=== PATIENT | male | born 1980 ===

== ENCOUNTER 2017-01-08 18:39 | Inpatient (IN) | payer OTHER, SELFPAY ==
[2017-01-08] MEDS ORDERED: Sodium Chloride 0.9% 1,000 ML IV STA ×2 (19:27→21:05)
[2017-01-08 19:48] LABS: VENOUS BLOOD GAS BASE EXCESS -0.8 mmol/L (0.0-2.0); VENOUS BLOOD GAS PCO2 34 mmHg (40-60); VENOUS BLOOD PH 7.44 (7.32-7.43)
--- NOTE | 2017-01-08 19:52 | ED PDOC ---
HPI: Altered Mental Status Time Seen by Provider: 01/08/17 19:19 Chief Complaint (Nursing): Alcohol Ingestion Chief Complaint (Provider): Altered Mental Status History Per: EMS History/Exam Limitations: Clinical Condition Onset/Duration Of Symptoms: Unknown Usual Baseline: Unknown Use Of Anticoag/Antiplatlets: Unknown Additional Complaint(s): Torrey Currie is brought into the ED by EMS. Patient history is limited due to clinical condition. As per EMS, the patient was found laying on the ground covered in his own feces. Patient only moans in response to questions. Past Medical History Reviewed: Historical Data, Nursing Documentation, Vital Signs, Unable To Obtain Vital Signs: Last Vital Signs Temp 99.4 F 01/08/17 19:21 Pulse 138 H 01/08/17 19:21 Resp 18 01/08/17 19:21 BP 142/73 01/08/17 19:21 Pulse Ox 100 01/08/17 19:21 - Medical History Other PMH: Unable to obtain - Surgical History Other surgeries: Unable to obtain - Family History Family History: States: Unknown Family Hx - Home Medications Home Medications: Ambulatory Orders Medication Instructions Recorded Unobtainable 01/08/17 - Allergies Allergies/Adverse Reactions: Allergies Allergy/AdvReac Type Severity Reaction Status Date / Time No Known Allergies Allergy Verified 01/08/17 18:46 Review of Systems Review Of Systems: ROS cannot be obtained secondary to pt's inabilty to answer questions. (cannot be obtained due to patients clinical condition.) Physical Exam - Reviewed Nursing Documentation Reviewed: Yes Vital Signs Reviewed: Yes - Physical Exam Appears: Positive for: In Acute Distress (appear cirrhotic and sick) Head Exam: Positive for: NORMOCEPHALIC (with temporal wasting and bilateral periorbital ecchymosis RIGHT > LEFT) Skin: Positive for: Warm, Dry (excoriated areas lower lumbar area, bilateral buttocks, and hip pointers with large area RIGHT hip pointer, with surrounding erythema), Jaundice Eye Exam: Positive for: EOMI, PERRL (roving eye movements), Scleral icterus ENT: Positive for: Pharynx Is (clear), Other (dry mucus membranes) Neck: Positive for: Painless ROM, Trachea Midline Cardiovascular/Chest: Positive for: Tachycardia (regular rhythm). Negative for : Edema, Murmur Respiratory: Positive for: Normal Breath Sounds. Negative for: Wheezing, Respiratory Distress Gastrointestinal/Abdominal: Positive for: Distended (marked), Asicites. Negative for: Tenderness Back: Positive for: Vertebral Tenderness (lumbar area, in area of excoriatiion as describe above) Extremity: Positive for: Normal ROM, Other (poor muscle bulk) Lymphatic: Negative for: Adenopathy Neurologic/Psych: Positive for: Other (only moans to questions). Negative for: Alert (Eyes open but obtunded), Oriented - Laboratory Results Result Diagrams: 01/12/17 04:20 01/12/17 04:20 - ECG O2 Sat by Pulse Oximetry: 100 (RA) Pulse Ox Interpretation: Normal - Progress Re-evaluation Time: 21:00 Condition: Unchanged - Critical Care Total Time (In Min): 30 Documented Critical Care: Time excludes all time spent performint seperately billable procedures Medical Decision Making Medical Decision Makin Initial Impression: 32 y/o male presenting altered mental status and liver cirrhosis Differential: traumatic brain injury, Alcohol intoxication, Hepatic encephalopathy, Dehydration, Electrolyte Initial Plan: * Type and Screen * VBG * CT ABD&Pelvis w/o contrast * CT cervical spine w/o contrast * CT head w/o contrast * EKG * Alcohol Serum * Ammonia * CMP * Drug Screen * Lipase * Magnesium * Phosphorous * Troponin I * CBC * Partial Thromboplastin * Prothrombin time * CXR NS 1000ml IV 1000mls/hr * Blood Culture * Urine Cuture * Accucheck Hernandez * Urinalysis * Reevaluation 1938 EKG performed: * Sinus tachycardia, very poor baseline due to patient movement * Other intervals unable to asses 2134 CT Head Without Intravenous Contrast COMPARISON: No relevant prior studies available. FINDINGS: Motion artifact. Brain: No hemorrhage. No significant white matter disease. No edema. Ventricles: No hydrocephalus. Bones/joints: Skull is intact. Soft tissues: Unremarkable as visualized. Sinuses: Mild paranasal sinus disease, right greater than left. Mastoid air cells: No mastoid effusion. IMPRESSION: No CT evidence of acute intracranial abnormality. Please see details/findings as above. 2136 CT Cervical Spine Without Intravenous Contrast COMPARISON: No relevant prior studies available. FINDINGS: Vertebrae: No acute fracture. Discs/spinal canal/neural foramina: No acute findings. No severe spinal canal stenosis. Soft tissues: No acute findings. Lung apices: Unremarkable as visualized. IMPRESSION: Negative for acute fracture. 2141 CT Abdomen and Pelvis Without Intravenous Contrast FINDINGS: Please note evaluation for underlying visceral lesions/abnormalities limited without intravenous contrast. Undulating contour to the liver. Splenomegaly. The unenhanced pancreas and adrenal glands demonstrate no acute abnormalities. Limited evaluation of the gallbladder. Further evaluation can be performed with dedicated ultrasound. No obstructing renal calculus or hydronephrosis. Hernandez catheter in the bladder. Bladder is collapsed, limiting its evaluation. Bladder wall appears prominent. Correlate clinically. The aorta is normal in caliber. Evaluation of bowel limited without enteric contrast. Hiatal hernia/thickening of distal esophageal wall. No bowel obstruction. Bowel wall thickening, correlate clinically if there is concern for enteritis, appearance may be somewhat due to ascites. IMPRESSION: Severe ascites. Undulating contour to the liver. Splenomegaly. Evaluation of bowel limited without enteric contrast. Hiatal hernia/thickening of distal esophageal wall. Bowel wall thickening, correlate clinically if there is concern for enteritis, appearance may be somewhat due to ascites. Hernandez catheter in the bladder. Bladder is collapsed, limiting its evaluation. Bladder wall appears prominent. Correlate clinically. 215 Marked derangement of electrolytes and liver function tests including very elevated bilirubin and coagulopathy, elevated CPK and kidney insufficiency. Ammonia levels minimally elevated, but at times level of ammonia does not correlate with severity of hepatic encephalopathy. In addition, pt may also be or have had prolonged period of delerium tremens (if an alcoholic) which may be causing altered mental status. Pt needs critical care for multiorgan life- threatening dysfunction. Banana bag ordered for volume and electrolyte. Pt's mental status unchanged at 2100 and [address] Dillard hospitalist for admission. Scribe Attestation Documented by Coco Del Rio acting as a scribe for Nicole Albright MD. Provider Attestation All medical record entries made by the Scribe were at my direction and personally dictated by me. I have reviewed the chart and agree that the record accurately reflects my personal performance of the history, physical exam, medical decision making, and the department course for this patient. I have also personally directed, reviewed, and agree with the discharge instructions and disposition. Disposition - Clinical Impression Clinical Impression: ROHIT (acute kidney injury), Liver cirrhosis, Coagulopathy, Metabolic encephalopathy, Rhabdomyolysis - Disposition Disposition Time: 21:51 Condition: CRITICAL - Pt Status Changed To: Hospital Disposition Of: Inpatient - Admit Certification Admit to Inpatient:: After my assessment, the patient will require hospitalization for at least two midnights. This is because of the severity of symptoms shown, intensity of services needed, and/or the medical risk in this patient being treated as an outpatient. - POA Present On Arrival: Falls Or Trauma, Pressure Ulcer (buttocks)
[2017-01-08 19:57] LABS: ALB/GLOB RATIO 0.4 (1.0-2.1); ALCOHOL SERUM < 10 mg/dl (0-10); ALKALINE PHOSPHATASE 226 U/L (38-126); ALT/SGPT 46 U/L (21-72); AST/SGOT 253 U/L (17-59); BLOOD UREA NITROGEN 48 mg/dl (9-20); CALCIUM 8.3 mg/dL (8.4-10.2); CARBON DIOXIDE 19 mmol/L (22-30); CHLORIDE 109 mmol/L (98-107); GFR AFRICAN-AMERICAN 56; GLUCOSE,RANDOM 133 mg/dL (75-110); LIPASE 529 U/L (23-300); MAGNESIUM 1.4 MG/DL (1.6-2.3); PHOSPHOROUS 1.5 mg/dl (2.5-4.5); POTASSIUM 3.5 MMOL/L (3.6-5.0); SODIUM 143 mmol/l (132-148); TOTAL PROTEIN 9.3 G/DL (6.3-8.2)
[2017-01-08 20:02] LABS: BASO # 0.2 K/uL (0.0-0.2); BASO % 1.4 % (0.0-2.0); EOS % 0.2 % (0.0-4.0); HEMATOCRIT 25.5 % (35.0-51.0); LYMPH # 7.4 K/uL (1.0-4.3); LYMPH % 64.6 % (20.0-40.0); MEAN CELL VOLUME 89.5 fl (80.0-94.0); MEAN CORPUSCULAR HEMOGLOBIN 29.7 pg (27.0-31.0); MEAN CORPUSCULAR HGB CONC 33.2 g/dL (33.0-37.0); MEAN PLATELET VOLUME 8.2 fl (7.2-11.7); MONO # 0.5 K/uL (0.0-0.8); MONO % 4.5 % (0.0-10.0); NEUT # 3.4 K/uL (1.8-7.0); NEUT % 29.3 % (50.0-75.0); NRBC % 0.3 % (0.0-0.0); RED CELL DISTRIBUTION WIDTH 21.2 % (11.5-14.5); WHITE BLOOD COUNT 11.5 K/uL (4.8-10.8)
[2017-01-08 20:15] LABS: PARTIAL THROMBOPLASTIN TIME 44.2 Seconds (25.6-37.1)
[2017-01-08] MEDS ORDERED: Multivitamin (MVI) 10 ML, Thiamine 100 MG, Folic Acid 1 MG in Sodium Chloride 0.9% 1,00... IV ONE (20:16)
--- NOTE | 2017-01-08 21:36 | CT ---
EXAM: CT Head Without Intravenous Contrast CLINICAL HISTORY: 32 years old, male; Injury or trauma; Injury Etoch; Initial encounter; Concussion / head injury; Additional info: AMS TECHNIQUE: Axial computed tomography images of the head/brain without intravenous contrast. All CT scans at this facility use one or more dose reduction techniques, viz.: automated exposure control; ma/kV adjustment per patient size (including targeted exams where dose is matched to indication; i.e. head); or iterative reconstruction technique. Coronal and sagittal reformatted images were created and reviewed. COMPARISON: No relevant prior studies available. FINDINGS: Motion artifact. Brain: No hemorrhage. No significant white matter disease. No edema. Ventricles: No hydrocephalus. Bones/joints: Skull is intact. Soft tissues: Unremarkable as visualized. Sinuses: Mild paranasal sinus disease, right greater than left. Mastoid air cells: No mastoid effusion. IMPRESSION: No CT evidence of acute intracranial abnormality. Please see details/findings as above.
--- NOTE | 2017-01-08 21:37 | CT ---
EXAM: CT Cervical Spine Without Intravenous Contrast CLINICAL HISTORY: 32 years old, male; Injury or trauma; Injury Etoch; Initial encounter; Concussion /head injury; Additional info: Head trauma TECHNIQUE: Axial computed tomography images of the cervical spine without intravenous contrast. All CT scans at this facility use one or more dose reduction techniques, viz.: automated exposure control; ma/kV adjustment per patient size (including targeted exams where dose is matched to indication; i.e. head); or iterative reconstruction technique. Coronal and sagittal reformatted images were created and reviewed. COMPARISON: No relevant prior studies available. FINDINGS: Vertebrae: No acute fracture. Discs/spinal canal/neural foramina: No acute findings. No severe spinal canal stenosis. Soft tissues: No acute findings. Lung apices: Unremarkable as visualized. IMPRESSION: Negative for acute fracture.
--- NOTE | 2017-01-08 21:42 | CT ---
EXAM: CT Abdomen and Pelvis Without Intravenous Contrast CLINICAL HISTORY: 32 years old, male; Pain; Abdominal pain; Generalized; Additional info: Abd distension TECHNIQUE: Axial computed tomography images of the abdomen and pelvis without intravenous contrast. All CT scans at this facility use one or more dose reduction techniques, viz.: automated exposure control; ma/kV adjustment per patient size (including targeted exams where dose is matched to indication; i.e. head); or iterative reconstruction technique. Coronal and sagittal reformatted images were created and reviewed. COMPARISON: No relevant prior studies available. FINDINGS: Please note evaluation for underlying visceral lesions/abnormalities limited without intravenous contrast. Undulating contour to the liver. Splenomegaly. The unenhanced pancreas and adrenal glands demonstrate no acute abnormalities. Limited evaluation of the gallbladder. Further evaluation can be performed with dedicated ultrasound. No obstructing renal calculus or hydronephrosis. Hernandez catheter in the bladder. Bladder is collapsed, limiting its evaluation. Bladder wall appears prominent. Correlate clinically. The aorta is normal in caliber. Evaluation of bowel limited without enteric contrast. Hiatal hernia/thickening of distal esophageal wall. No bowel obstruction. Bowel wall thickening, correlate clinically if there is concern for enteritis, appearance may be somewhat due to ascites. Severe ascites. IMPRESSION: Severe ascites. Undulating contour to the liver. Splenomegaly. Evaluation of bowel limited without enteric contrast. Hiatal hernia/thickening of distal esophageal wall. Bowel wall thickening, correlate clinically if there is concern for enteritis, appearance may be somewhat due to ascites. Hernandez catheter in the bladder. Bladder is collapsed, limiting its evaluation. Bladder wall appears prominent. Correlate clinically.
[2017-01-08 21:48] LABS: URINE BILIRUBIN LARGE (NEGATIVE); URINE COLOR RED (YELLOW); URINE GLUCOSE (UA) 100 mg/dL (Normal); URINE KETONE 15 mg/dL (NEGATIVE)
[2017-01-08 21:49] LABS: PH,URINE 6.5 (5.0-8.0); RBC URINE 877 /hpf (0-3); URINE BLOOD LARGE (NEGATIVE); URINE LEUKOCYTE ESTERASE TRACE Leu/uL (Negative); URINE PROTEIN >=300 mg/dL (NEGATIVE); WBC URINE 89 /hpf (0-5)
[2017-01-08 21:50] LABS: URINE BACTERIA MOD (<OCC)
[2017-01-08] MEDS: Dextrose 5%/0.9% NS 1,000 ML IV SCH (22:30)
--- NOTE | 2017-01-09 03:20 | CP.PCM.HP ---
History of Present Illness - History of Present Illness History of Present Illness: 32 yr old male with unknown past medical hx except for alcoholism who was brought to ED after having been found lying on ground littered in his own feces for unknown period of time. In ED he was noted to lethargic, moaning and groaning with skin tears on back and sides of hips. Work up included CT head and spine which were neg for any acute pathology. Further work up revealed elevated ammonia level (72), and bilirubin (10), BAL<10 and CPK 1082. He himself was unable to provide any medical information and was admitted for further management after the intial interventions in ED under hospitalist care to ICU Present on Admission - Present on Admission Any Indicators Present on Admission: No History of DVT/PE: No History of Uncontrolled Diabetes: No Urinary Catheter: Yes Decubitus Ulcer Present: Yes Decubitus Ulcer Location: Loer back, buttocks and sides of hips Decubitus Ulcer Stage: II History Surgical Site Infection Following: None - Notes: Notes:: Pt has maccerated erythmatous skin with multiple tears on back and hip sides which could be of time in his own feces and urin secondary to lying in the same posture for long period. Hx of prior surgeries, DVT or DM unavailable Review of Systems - Review of Systems Review of Systems: ROS could not be done as pt lethargic and unable to provide any significant information Past Patient History - Tetanus Immunizations Tetanus Immunization: Unknown - Past Medical History & Family History Past Medical History?: No Pertinent Family History: Pt himself unable to provide any medical information because of current medical status - Past Social History Smoking Status: Unknown If Ever Smoked - PSYCHIATRIC Hx Substance Use: No Meds Allergies/Adverse Reactions: Allergies Allergy/AdvReac Type Severity Reaction Status Date / Time No Known Allergies Allergy Verified 01/08/17 18:46 Physical Exam - Constitutional Appears: Confused, Cachectic, Chronically Ill - Head Exam Head Exam: NORMAL INSPECTION, NORMOCEPHALIC - Eye Exam Eye Exam: Normal appearance, PERRL Pupil Exam: PERRL - ENT Exam ENT Exam: Mucous Membranes Dry, Normal Oropharynx - Neck Exam Neck exam: Positive for: Normal Inspection - Respiratory Exam Respiratory Exam: Clear to Auscultation Bilateral, NORMAL BREATHING PATTERN - Cardiovascular Exam Cardiovascular Exam: REGULAR RHYTHM, +S1, +S2 - GI/Abdominal Exam GI & Abdominal Exam: Distended, Normal Bowel Sounds, Soft - Exam Exam: NORMAL INSPECTION External exam: Erythema - Extremities Exam Extremities exam: Positive for: full ROM, normal capillary refill, normal inspection, pedal pulses present - Expanded Upper Extremities Exam Left General: normal inspection Shoulder exam: normal inspection Upper Arm exam: normal inspection Elbow exam: normal inspection Forearm Wrist exam: normal inspection - Back Exam Additional comments: Skin on lower back and hip sides erythmatous, maccerated and and has multiple skin tears - Neurological Exam Additional comments: Moving all four extremeties but lethargic/obtunded and neurological exam not possible at present - Psychiatric Exam Additional comments: Pt lethargic/obtunded and psychiatric exam not possible at present - Skin Additional comments: Erythmatous skin on lower back,, buttocks and sides of hips with mutilple skin tears Results - Vital Signs Recent Vital Signs: Last Vital Signs Temp 99.0 F 01/08/17 22:55 Pulse 127 H 01/08/17 23:03 Resp 16 01/08/17 23:03 BP 150/93 H 01/08/17 23:03 Pulse Ox 97 01/08/17 23:03 - Labs Result Diagrams: 01/08/17 19:43 01/08/17 19:43 Labs: Laboratory Results - last 24 hr 01/08/17 01/08/17 01/08/17 19:27 19:35 19:41 WBC RBC Hgb Hct MCV MCH MCHC RDW Plt Count MPV Neut % (Auto) Lymph % (Auto) Jack % (Auto) Eos % (Auto) Baso % (Auto) Neut # Lymph # Jack # Eos # Baso # PT INR APTT pO2 30 VBG pH 7.44 H VBG pCO2 34 L VBG HCO3 23.6 VBG Total CO2 24.1 VBG O2 Sat (Calc) 62.6 VBG Base Excess -0.8 L VBG Potassium 3.7 Sodium 142.0 Chloride 107.0 Glucose 133 H Lactate 2.1 FiO2 21.0 Potassium Carbon Dioxide Anion Gap BUN Creatinine Est GFR ( Amer) Est GFR (Non-Af Amer) Random Glucose Calcium Phosphorus Magnesium Total Bilirubin Direct Bilirubin 7.5 H AST ALT Alkaline Phosphatase Ammonia 70 H Total Creatine Kinase 1082 H Troponin I Total Protein Albumin Globulin Albumin/Globulin Ratio Lipase Venous Blood Potassium 3.7 Urine Color Urine Clarity Urine pH Ur Specific [place] Urine Protein Urine Glucose (UA) Urine Ketones Urine Blood Urine Nitrate Urine Bilirubin Urine Urobilinogen Ur Leukocyte Esterase Urine RBC (Auto) Urine Microscopic WBC Ur Squamous Epith Cells Amorphous Sediment Urine Bacteria Urine Yeast (Budding) Urine Opiates Screen Urine Methadone Screen Ur Barbiturates Screen Ur Phencyclidine Scrn Ur Amphetamines Screen U Benzodiazepines Scrn U Oth Cocaine Metabols U Cannabinoids Screen Alcohol, Quantitative Blood Type BBK History Checked 01/08/17 01/08/17 01/08/17 19:43 19:43 19:43 WBC 11.5 H RBC 2.85 L Hgb 8.5 L Hct 25.5 L MCV 89.5 MCH 29.7 MCHC 33.2 RDW 21.2 H Plt Count 69 L MPV 8.2 Neut % (Auto) 29.3 L Lymph % (Auto) 64.6 H Jack % (Auto) 4.5 Eos % (Auto) 0.2 Baso % (Auto) 1.4 Neut # 3.4 Lymph # 7.4 H Jack # 0.5 Eos # 0.0 Baso # 0.2 PT 23.6 H INR 2.1 H APTT 44.2 H pO2 VBG pH VBG pCO2 VBG HCO3 VBG Total CO2 VBG O2 Sat (Calc) VBG Base Excess VBG Potassium Sodium 143 Chloride 109 H Glucose Lactate FiO2 Potassium 3.5 L Carbon Dioxide 19 L Anion Gap 19 BUN 48 H Creatinine 1.7 H Est GFR ( Amer) 56 Est GFR (Non-Af Amer) 46 Random Glucose 133 H Calcium 8.3 L Phosphorus 1.5 L Magnesium 1.4 L Total Bilirubin 10.0 H Direct Bilirubin AST 253 H ALT 46 Alkaline Phosphatase 226 H Ammonia Total Creatine Kinase Troponin I 0.0320 Total Protein 9.3 H Albumin 2.8 L Globulin 6.5 H Albumin/Globulin Ratio 0.4 L Lipase 529 H Venous Blood Potassium Urine Color Urine Clarity Urine pH Ur Specific [place] Urine Protein Urine Glucose (UA) Urine Ketones Urine Blood Urine Nitrate Urine Bilirubin Urine Urobilinogen Ur Leukocyte Esterase Urine RBC (Auto) Urine Microscopic WBC Ur Squamous Epith Cells Amorphous Sediment Urine Bacteria Urine Yeast (Budding) Urine Opiates Screen Urine Methadone Screen Ur Barbiturates Screen Ur Phencyclidine Scrn Ur Amphetamines Screen U Benzodiazepines Scrn U Oth Cocaine Metabols U Cannabinoids Screen Alcohol, Quantitative < 10 Blood Type BBK History Checked 01/08/17 01/08/17 01/08/17 19:43 20:45 20:58 WBC RBC Hgb Hct MCV MCH MCHC RDW Plt Count MPV Neut % (Auto) Lymph % (Auto) Jack % (Auto) Eos % (Auto) Baso % (Auto) Neut # Lymph # Jack # Eos # Baso # PT INR APTT pO2 VBG pH VBG pCO2 VBG HCO3 VBG Total CO2 VBG O2 Sat (Calc) VBG Base Excess VBG Potassium Sodium Chloride Glucose Lactate FiO2 Potassium Carbon Dioxide Anion Gap BUN Creatinine Est GFR ( Amer) Est GFR (Non-Af Amer) Random Glucose Calcium Phosphorus Magnesium Total Bilirubin Direct Bilirubin AST ALT Alkaline Phosphatase Ammonia Total Creatine Kinase Troponin I Total Protein Albumin Globulin Albumin/Globulin Ratio Lipase Venous Blood Potassium Urine Color Red Urine Clarity Turbid Urine pH 6.5 Ur Specific [place] 1.025 Urine Protein >=300 Urine Glucose (UA) 100 Urine Ketones 15 Urine Blood Large Urine Nitrate Positive H Urine Bilirubin Large Urine Urobilinogen 4.0 Ur Leukocyte Esterase Trace H Urine RBC (Auto) 877 H Urine Microscopic WBC 89 H Ur Squamous Epith Cells 5 Amorphous Sediment Moderate H Urine Bacteria Mod H Urine Yeast (Budding) Many H Urine Opiates Screen Negative Urine Methadone Screen Negative Ur Barbiturates Screen Negative Ur Phencyclidine Scrn Negative Ur Amphetamines Screen Negative U Benzodiazepines Scrn Negative U Oth Cocaine Metabols Negative U Cannabinoids Screen Negative Alcohol, Quantitative Blood Type O POSITIVE BBK History Checked No verified bt - EKG Data EKG comments: NSR with no ac ST T changes - Impressions Impression: CT scan head and Neck neg for any ac pathology as per ER MD. CT abdomen showed spleenomegaly Assessment & Plan - Assessment and Plan (Free Text) Assessment: 32 yr old male with unknown past medical hx except for alcoholism who was brought to ED after having been found lying on ground littered in his own feces for unknown period of time, noted to lethargic, moaning and groaning with skin tears on back and sides of hips. Work up included CT head and spine which were neg for any acute pathology. Further work up revealed elevated ammonia level (72 ), and bilirubin (10), BAL<10 and CPK 1082. He was admitted for further management after the intial interventions in ED under hospitalist care to ICU. The admitting impressions include: Hepatic encephalopathy Jaundice. Thrombocytopenia Cellulitis of lower back, buttocks and hips. UTI Ch alcoholism ? Alcohol withdrawl synd. Homeless Plan: 1. Admit to ICU for close hemodynamic monitoring and necessary interventions. 2. Fall and Seizure precautions. 3. Neuro checks for next 24 hours for any change in ctatus. 4. Initiate perentral IV fluid for hydration and nutrition purpose. 5. Prevention of Ac alcohol withdrwl syndromes with short acting sedatives on prn basis. 6. Intiate broad spectrum antibiotics for Cellulitis of lower back and UTI. Whe shall start with Zosyn and follow C&S and input fron ID/Fruit [employer]. 7. Prevention of syndromes sec to Ch alcoholism with iv thiamine and folic acid. 8. Prevention stress ulcers and DVT prophylaxis with PPI, SCD boots. We shall hold anticoagulant med therapy as pt is thrombocytopenic. 9. Symptomatic treatment of nausea, vomiting, fever, pain and other bodily symptoms with short acting meds on prn basis. Pt during the hospital stay shall be followed by hospitalist service/inteve care service and post dischrge sent back to his PMD/medical clinic affiliated with hospital for further follow up. - Date & Time Date: 01/08/17
[2017-01-09] MEDS ORDERED: Lactulose 10 gm/15 ml (Rectal Use) PR ONE (03:35)
[2017-01-09] MEDS ORDERED: Influenza Vaccine 18yr & older 0.5 ML/45 MCG SYR IM ONE (06:00)
[2017-01-09] MEDS ORDERED: Pneumococcal 23-Valent Vaccine IM ONE (06:00)
[2017-01-09 06:18] LABS: HEMATOCRIT 23.4 % (35.0-51.0); MEAN CORPUSCULAR HEMOGLOBIN 30.1 pg (27.0-31.0); MEAN CORPUSCULAR HGB CONC 33.1 g/dL (33.0-37.0); RED CELL DISTRIBUTION WIDTH 21.4 % (11.5-14.5); WHITE BLOOD COUNT 9.6 K/uL (4.8-10.8)
[2017-01-09 06:32] LABS: ALB/GLOB RATIO 0.4 (1.0-2.1); ALKALINE PHOSPHATASE 186 U/L (38-126); ALT/SGPT 45 U/L (21-72); AST/SGOT 199 U/L (17-59); BILIRUBIN,TOTAL 9.1 mg/dl (0.2-1.3); BLOOD UREA NITROGEN 44 mg/dl (9-20); CALCIUM 7.6 mg/dL (8.4-10.2); CARBON DIOXIDE 21 mmol/L (22-30); CHLORIDE 116 mmol/L (98-107); GFR AFRICAN-AMERICAN > 60; GLUCOSE,RANDOM 105 mg/dL (75-110); POTASSIUM 2.7 MMOL/L (3.6-5.0); SODIUM 148 mmol/l (132-148); TOTAL PROTEIN 8.2 G/DL (6.3-8.2)
[2017-01-09 06:40] LABS: PARTIAL THROMBOPLASTIN TIME 46.5 Seconds (25.6-37.1)
[2017-01-09] MEDS: Dextrose 5%/0.9% NS 1,000 ML IV SCH ×2 (06:41→18:20)
--- NOTE | 2017-01-09 07:19 | RAD ---
HISTORY: ams COMPARISON: No prior. FINDINGS: LUNGS: No active pulmonary disease. PLEURA: No significant pleural effusion identified, no pneumothorax apparent. CARDIOVASCULAR: Normal. OSSEOUS STRUCTURES: No significant abnormalities. VISUALIZED UPPER ABDOMEN: Normal. OTHER FINDINGS: None. IMPRESSION: No active disease.
[2017-01-09 07:52] LABS: MAGNESIUM 1.3 MG/DL (1.6-2.3); PHOSPHOROUS 1.8 mg/dl (2.5-4.5)
[2017-01-09] MEDS: Potassium CL 10 MEQ/50 ML 50 ML IVPB SCH ×4 (08:26→11:28)
--- NOTE | 2017-01-09 09:11 | CARD ---
APPROVED REPORT EKG Measurement Heart [id number] <Conclusion> Sinus tachycardia Too much artefact
--- NOTE | 2017-01-09 13:39 | CP.CCUPN ---
CCU Subjective - Physician Review Subjective (Free Text): ICU admission and consultation: discussed with Night Hospitalist MD: 32M homeless Torrey Currie, admitted after being found unresponsiveness, lying on the ground in his own excrement, and brought into ER for eval. Found to have negative CT Brain, and multiple blood work abnormalities; including azotemia, anemia, low platelets, negative ETOH level, metabolic acidosis, and physical exam c/w ascites and cirrhosis. In ICU, now arousable to verbal stimuli, but not wholly interactive nor follows any commands, will answer simple questions with brief one word answers, but not conversant otherwise. No other PMH obtainable, he is otherwise an extremely poor historian. Other vitals and I/O's reviewed. Allergies: NKDA ROS: Unobtainable. No other pertinent negs or positives on 10+ system review. Outpt Meds: None known. PMSFH: ----All Nursing and physician documentation reviewed to date; no new pertinent info noted relevant to current medical problems. CXR: clear lung lopes, no cardiomegaly (my interp). Brain CT, CT AP, C-Spine CT films and results reviewed: except for ascites, + splenomegaly, no other findings to warrant further w/u. MAJOR PROBLEMS: 1. AMS 2 metabolic encephalopathy, r/o 2 subacute Head trauma 2. Possible AKA ( possible recent binge ETOH drinking ) 3. Multiple Electrolyte Abnormalities: Hypokalemia, Hypomagnesemia, Hypophosphatemia 4. Azotemia / Dehydration, r/o ROHIT 2 Rhabdomyolysis 5. Acute on Chronic Disease Anemia 6. Coagulopathy / Thrombocytopenia 7. r/o SBP PLAN: 1. Neurochecks, seizure precautions, HOB elevation. Watch for ETOH Withdrawal symptoms. May need 1:1 supervision now as he is trying to get OOB. 2. IVF hydration with D5NS. Ensure Thiamine / Folate supplementation. 3. K, Mg, Phos already ordered or repletion. 4. Follow LFTs. 5. Lactulose. 6. Check serum ketones. 7. Paracentesis 8. Consider Abdominal US. 9. Airway reflexes currently intact, no need for airway protection or assisted breathing. CCU Objective - Vital Signs / Intake & Output Vital Signs (Last 4 hours): Vital Signs Temp Pulse Resp BP Pulse Ox 01/09/17 11:57 98.6 F 126 H 21 153/94 H 100 01/09/17 10:00 120 H 24 142/93 H 99 Intake and Output (Last 8hrs): Intake & Output 01/08/17 01/09/17 01/09/17 22:59 06:59 14:59 Intake Total 1100 1425 Output Total 200 300 Balance 900 1125 Weight 130 lb Intake: IV 1000 625 Intake, Piggyback 100 350 Oral 450 Output: Urine 200 300 Urethral (Hernandez) 200 300 Other: # Bowel Movements 2 1 - Physical Exam Physical Exam Limitations: Positive for: Altered Mental Status Head: Positive for: Abrasion, Other (temporal mm atrophy, bilateral orbital ecchymosis R worse than L.) Pupils: Positive for: PERRL Extroacular Muscles: Positive for: EOMI Conjunctiva: Positive for: Icteric Nose (External): Positive for: Atraumatic Nose (Internal): Positive for: No Active Bleeding Neck: Positive for: Normal Range of Motion. Negative for: Meningeal Signs, JVD Respiratory/Chest: Positive for: Clear to Auscultation Cardiovascular: Positive for: Regular Rate and Rhythm, Normal S1, S2, Tachycardic. Negative for: Murmurs, Rub Abdomen: Positive for: Distention, Normal Bowel Sounds. Negative for: Tenderness, Peritoneal Signs, Rebound, Guarding Lower Extremity: Positive for: Edema, NORMAL PULSES. Negative for: CALF TENDERNESS, Cyanosis, Tenderness Neurological: Positive for: GCS=15 Skin: Positive for: Warm, Laceration, Other (macerated and erythematous skin changes over both hips and mid sacral area.). Negative for: Rashes Lymphatic: Negative for: Cervical Adenopathy, Inguinal Adenopathy Psychiatric: Positive for: Lethargic - Medications Active Medications: Active Medications Generic Name Dose Route Start Last Admin Trade Name Freq PRN Reason Stop Dose Admin Piperacillin Sod/Tazobactam 100 mls @ 100 mls/hr 01/09/17 04:00 01/09/17 09: 24 Sod 2.25 gm/ Sodium Chloride IVPB 100 mls/hr Q6 MEG Administration Protocol Dextrose/Sodium Chloride 1,000 mls @ 125 mls/hr 01/08/17 22:30 01/09/17 06:41 Dextrose 5%/0.9% Ns 1000 Ml IV 01/09/17 22:22 125 mls/hr .Q8H MEG Administration Lorazepam 1 mg 01/08/17 22:18 01/08/17 22:41 Ativan IVP 01/10/17 00:01 1 mg Q2 PRN Administration Agitation Pantoprazole Sodium 40 mg 01/09/17 09:00 01/09/17 08:23 Protonix Inj IVP 40 mg DAILY MEG Administration Potassium Phos/Sodium Phos 1 pkt 01/09/17 13:00 Neutra-Phos PO QID MEG - Patient Studies Lab Studies: Lab Studies 01/09/17 01/09/17 01/09/17 Range/Units 12:25 07:00 05:30 WBC (4.8-10.8) K/uL RBC (4.40-5.90) Mil/uL Hgb (12.0-18.0) g/dL Hct (35.0-51.0) % MCV (80.0-94.0) fl MCH (27.0-31.0) pg MCHC (33.0-37.0) g/dL RDW (11.5-14.5) % Plt Count (130-400) K/uL MPV (7.2-11.7) fl Neut % (Auto) (50.0-75.0) % Lymph % (Auto) (20.0-40.0) % [place] % (Auto) (0.0-10.0) % Eos % (Auto) (0.0-4.0) % Baso % (Auto) (0.0-2.0) % Neut # (1.8-7.0) K/uL Lymph # (1.0-4.3) K/uL [place] # (0.0-0.8) K/uL Eos # (0.0-0.7) K/uL Baso # (0.0-0.2) K/uL PT 24.8 H (9.8-13.1) Seconds INR 2.2 H (0.9-1.2) APTT 46.5 H (25.6-37.1) Seconds pO2 (30-55) mm/Hg VBG pH (7.32-7.43) VBG pCO2 (40-60) mmHg VBG HCO3 mmol/L VBG Total CO2 (22-28) mmol/L VBG O2 Sat (Calc) (40-65) % VBG Base Excess (0.0-2.0) mmol/L VBG Potassium (3.6-5.2) mmol/L Sodium (132-148) mmol/L Chloride (98-107) mmol/L Glucose (75-110) mg/dL Lactate (0.7-2.1) mmol/L FiO2 % Potassium (3.6-5.0) MMOL/L Carbon Dioxide (22-30) mmol/L Anion Gap (10-20) BUN (9-20) mg/dl Creatinine (0.8-1.5) mg/dL Est GFR ( Amer) Est GFR (Non-Af Amer) POC Glucose (mg/dL) (65-110) mg/dL Random Glucose (75-110) mg/dL Lactic Acid (0.7-2.1) MMOL/L Calcium (8.4-10.2) mg/dL Phosphorus 1.8 L (2.5-4.5) mg/dl Magnesium 1.3 L (1.6-2.3) MG/DL Total Bilirubin (0.2-1.3) mg/dl Direct Bilirubin (0.0-0.4) mg/ml AST (17-59) U/L ALT (21-72) U/L Alkaline Phosphatase (38-126) U/L Ammonia (16-60) umo/L Total Creatine Kinase (55-170) U/L Troponin I (0.00-0.120) ng/mL Total Protein (6.3-8.2) G/DL Albumin (3.5-5.0) g/dL Globulin (2.2-3.9) gm/dL Albumin/Globulin Ratio (1.0-2.1) Lipase (23-300) U/L Venous Blood Potassium (3.6-5.2) mmol/L Urine Color (YELLOW) Urine Clarity (Clear) Urine pH (5.0-8.0) Ur Specific [place] (1.003-1.030) Urine Protein (NEGATIVE) mg/dL Urine Glucose (UA) (Normal) mg/dL Urine Ketones (NEGATIVE) mg/dL Urine Blood (NEGATIVE) Urine Nitrate (NEGATIVE) Urine Bilirubin (NEGATIVE) Urine Urobilinogen (0.2-1.0) mg/dL Ur Leukocyte Esterase (Negative) Alex/uL Urine RBC (Auto) (0-3) /hpf Urine Microscopic WBC (0-5) /hpf Ur Squamous Epith Cells (0-5) /hpf Amorphous Sediment (<OCC) /ul Urine Bacteria (<OCC) Urine Yeast (Budding) (NEGATIVE) /hpf Urine Opiates Screen (NEGATIVE) Urine Methadone Screen (NEGATIVE) Ur Barbiturates Screen (NEGATIVE) Ur Phencyclidine Scrn (NEGATIVE) Ur Amphetamines Screen (NEGATIVE) U Benzodiazepines Scrn (NEGATIVE) U Oth Cocaine Metabols (NEGATIVE) U Cannabinoids Screen (NEGATIVE) Alcohol, Quantitative (0-10) mg/dl Blood Type Cancelled Antibody Screen Cancelled Crossmatch See Detail BBK History Checked Cancelled 01/09/17 01/09/17 01/09/17 Range/Units 05:30 05:30 05:30 WBC 9.6 (4.8-10.8) K/uL RBC 2.57 L (4.40-5.90) Mil/uL Hgb 7.7 L (12.0-18.0) g/dL Hct 23.4 L (35.0-51.0) % MCV 91.0 (80.0-94.0) fl MCH 30.1 (27.0-31.0) pg MCHC 33.1 (33.0-37.0) g/dL RDW 21.4 H (11.5-14.5) % Plt Count 57 L (130-400) K/uL MPV (7.2-11.7) fl Neut % (Auto) (50.0-75.0) % Lymph % (Auto) (20.0-40.0) % [place] % (Auto) (0.0-10.0) % Eos % (Auto) (0.0-4.0) % Baso % (Auto) (0.0-2.0) % Neut # (1.8-7.0) K/uL Lymph # (1.0-4.3) K/uL [place] # (0.0-0.8) K/uL Eos # (0.0-0.7) K/uL Baso # (0.0-0.2) K/uL PT (9.8-13.1) Seconds INR (0.9-1.2) APTT (25.6-37.1) Seconds pO2 (30-55) mm/Hg VBG pH (7.32-7.43) VBG pCO2 (40-60) mmHg VBG HCO3 mmol/L VBG Total CO2 (22-28) mmol/L VBG O2 Sat (Calc) (40-65) % VBG Base Excess (0.0-2.0) mmol/L VBG Potassium (3.6-5.2) mmol/L Sodium 148 (132-148) mmol/L Chloride 116 H (98-107) mmol/L Glucose (75-110) mg/dL Lactate (0.7-2.1) mmol/L FiO2 % Potassium 2.7 L (3.6-5.0) MMOL/L Carbon Dioxide 21 L (22-30) mmol/L Anion Gap 14 (10-20) BUN 44 H (9-20) mg/dl Creatinine 1.6 H (0.8-1.5) mg/dL Est GFR ( Amer) > 60 Est GFR (Non-Af Amer) 50 POC Glucose (mg/dL) (65-110) mg/dL Random Glucose 105 (75-110) mg/dL Lactic Acid 1.0 (0.7-2.1) MMOL/L Calcium 7.6 L (8.4-10.2) mg/dL Phosphorus (2.5-4.5) mg/dl Magnesium (1.6-2.3) MG/DL Total Bilirubin 9.1 H (0.2-1.3) mg/dl Direct Bilirubin (0.0-0.4) mg/ml AST 199 H D (17-59) U/L ALT 45 (21-72) U/L Alkaline Phosphatase 186 H (38-126) U/L Ammonia (16-60) umo/L Total Creatine Kinase 538 H (55-170) U/L Troponin I (0.00-0.120) ng/mL Total Protein 8.2 (6.3-8.2) G/DL Albumin 2.4 L (3.5-5.0) g/dL Globulin 5.8 H (2.2-3.9) gm/dL Albumin/Globulin Ratio 0.4 L (1.0-2.1) Lipase (23-300) U/L Venous Blood Potassium (3.6-5.2) mmol/L Urine Color (YELLOW) Urine Clarity (Clear) Urine pH (5.0-8.0) Ur Specific [place] (1.003-1.030) Urine Protein (NEGATIVE) mg/dL Urine Glucose (UA) (Normal) mg/dL Urine Ketones (NEGATIVE) mg/dL Urine Blood (NEGATIVE) Urine Nitrate (NEGATIVE) Urine Bilirubin (NEGATIVE) Urine Urobilinogen (0.2-1.0) mg/dL Ur Leukocyte Esterase (Negative) Alex/uL Urine RBC (Auto) (0-3) /hpf Urine Microscopic WBC (0-5) /hpf Ur Squamous Epith Cells (0-5) /hpf Amorphous Sediment (<OCC) /ul Urine Bacteria (<OCC) Urine Yeast (Budding) (NEGATIVE) /hpf Urine Opiates Screen (NEGATIVE) Urine Methadone Screen (NEGATIVE) Ur Barbiturates Screen (NEGATIVE) Ur Phencyclidine Scrn (NEGATIVE) Ur Amphetamines Screen (NEGATIVE) U Benzodiazepines Scrn (NEGATIVE) U Oth Cocaine Metabols (NEGATIVE) U Cannabinoids Screen (NEGATIVE) Alcohol, Quantitative (0-10) mg/dl Blood Type Antibody Screen Crossmatch BBK History Checked 01/09/17 01/08/17 01/08/17 Range/Units 05:30 20:58 20:45 WBC (4.8-10.8) K/uL RBC (4.40-5.90) Mil/uL Hgb (12.0-18.0) g/dL Hct (35.0-51.0) % MCV (80.0-94.0) fl MCH (27.0-31.0) pg MCHC (33.0-37.0) g/dL RDW (11.5-14.5) % Plt Count (130-400) K/uL MPV (7.2-11.7) fl Neut % (Auto) (50.0-75.0) % Lymph % (Auto) (20.0-40.0) % [place] % (Auto) (0.0-10.0) % Eos % (Auto) (0.0-4.0) % Baso % (Auto) (0.0-2.0) % Neut # (1.8-7.0) K/uL Lymph # (1.0-4.3) K/uL [place] # (0.0-0.8) K/uL Eos # (0.0-0.7) K/uL Baso # (0.0-0.2) K/uL PT (9.8-13.1) Seconds INR (0.9-1.2) APTT (25.6-37.1) Seconds pO2 (30-55) mm/Hg VBG pH (7.32-7.43) VBG pCO2 (40-60) mmHg VBG HCO3 mmol/L VBG Total CO2 (22-28) mmol/L VBG O2 Sat (Calc) (40-65) % VBG Base Excess (0.0-2.0) mmol/L VBG Potassium (3.6-5.2) mmol/L Sodium (132-148) mmol/L Chloride (98-107) mmol/L Glucose (75-110) mg/dL Lactate (0.7-2.1) mmol/L FiO2 % Potassium (3.6-5.0) MMOL/L Carbon Dioxide (22-30) mmol/L Anion Gap (10-20) BUN (9-20) mg/dl Creatinine (0.8-1.5) mg/dL Est GFR ( Amer) Est GFR (Non-Af Amer) POC Glucose (mg/dL) (65-110) mg/dL Random Glucose (75-110) mg/dL Lactic Acid (0.7-2.1) MMOL/L Calcium (8.4-10.2) mg/dL Phosphorus (2.5-4.5) mg/dl Magnesium (1.6-2.3) MG/DL Total Bilirubin (0.2-1.3) mg/dl Direct Bilirubin (0.0-0.4) mg/ml AST (17-59) U/L ALT (21-72) U/L Alkaline Phosphatase (38-126) U/L Ammonia 26 D (16-60) umo/L Total Creatine Kinase (55-170) U/L Troponin I (0.00-0.120) ng/mL Total Protein (6.3-8.2) G/DL Albumin (3.5-5.0) g/dL Globulin (2.2-3.9) gm/dL Albumin/Globulin Ratio (1.0-2.1) Lipase (23-300) U/L Venous Blood Potassium (3.6-5.2) mmol/L Urine Color Red (YELLOW) Urine Clarity Turbid (Clear) Urine pH 6.5 (5.0-8.0) Ur Specific [place] 1.025 (1.003-1.030) Urine Protein >=300 (NEGATIVE) mg/dL Urine Glucose (UA) 100 (Normal) mg/dL Urine Ketones 15 (NEGATIVE) mg/dL Urine Blood Large (NEGATIVE) Urine Nitrate Positive H (NEGATIVE) Urine Bilirubin Large (NEGATIVE) Urine Urobilinogen 4.0 (0.2-1.0) mg/dL Ur Leukocyte Esterase Trace H (Negative) Alex/uL Urine RBC (Auto) 877 H (0-3) /hpf Urine Microscopic WBC 89 H (0-5) /hpf Ur Squamous Epith Cells 5 (0-5) /hpf Amorphous Sediment Moderate H (<OCC) /ul Urine Bacteria Mod H (<OCC) Urine Yeast (Budding) Many H (NEGATIVE) /hpf Urine Opiates Screen Negative (NEGATIVE) Urine Methadone Screen Negative (NEGATIVE) Ur Barbiturates Screen Negative (NEGATIVE) Ur Phencyclidine Scrn Negative (NEGATIVE) Ur Amphetamines Screen Negative (NEGATIVE) U Benzodiazepines Scrn Negative (NEGATIVE) U Oth Cocaine Metabols Negative (NEGATIVE) U Cannabinoids Screen Negative (NEGATIVE) Alcohol, Quantitative (0-10) mg/dl Blood Type Antibody Screen Crossmatch BBK History Checked 01/08/17 01/08/17 01/08/17 Range/Units 19:43 19:43 19:43 WBC 11.5 H (4.8-10.8) K/uL RBC 2.85 L (4.40-5.90) Mil/uL Hgb 8.5 L (12.0-18.0) g/dL Hct 25.5 L (35.0-51.0) % MCV 89.5 (80.0-94.0) fl MCH 29.7 (27.0-31.0) pg MCHC 33.2 (33.0-37.0) g/dL RDW 21.2 H (11.5-14.5) % Plt Count 69 L (130-400) K/uL MPV 8.2 (7.2-11.7) fl Neut % (Auto) 29.3 L (50.0-75.0) % Lymph % (Auto) 64.6 H (20.0-40.0) % [place] % (Auto) 4.5 (0.0-10.0) % Eos % (Auto) 0.2 (0.0-4.0) % Baso % (Auto) 1.4 (0.0-2.0) % Neut # 3.4 (1.8-7.0) K/uL Lymph # 7.4 H (1.0-4.3) K/uL [place] # 0.5 (0.0-0.8) K/uL Eos # 0.0 (0.0-0.7) K/uL Baso # 0.2 (0.0-0.2) K/uL PT 23.6 H (9.8-13.1) Seconds INR 2.1 H (0.9-1.2) APTT 44.2 H (25.6-37.1) Seconds pO2 (30-55) mm/Hg VBG pH (7.32-7.43) VBG pCO2 (40-60) mmHg VBG HCO3 mmol/L VBG Total CO2 (22-28) mmol/L VBG O2 Sat (Calc) (40-65) % VBG Base Excess (0.0-2.0) mmol/L VBG Potassium (3.6-5.2) mmol/L Sodium (132-148) mmol/L Chloride (98-107) mmol/L Glucose (75-110) mg/dL Lactate (0.7-2.1) mmol/L FiO2 % Potassium (3.6-5.0) MMOL/L Carbon Dioxide (22-30) mmol/L Anion Gap (10-20) BUN (9-20) mg/dl Creatinine (0.8-1.5) mg/dL Est GFR ( Amer) Est GFR (Non-Af Amer) POC Glucose (mg/dL) (65-110) mg/dL Random Glucose (75-110) mg/dL Lactic Acid (0.7-2.1) MMOL/L Calcium (8.4-10.2) mg/dL Phosphorus (2.5-4.5) mg/dl Magnesium (1.6-2.3) MG/DL Total Bilirubin (0.2-1.3) mg/dl Direct Bilirubin (0.0-0.4) mg/ml AST (17-59) U/L ALT (21-72) U/L Alkaline Phosphatase (38-126) U/L Ammonia (16-60) umo/L Total Creatine Kinase (55-170) U/L Troponin I (0.00-0.120) ng/mL Total Protein (6.3-8.2) G/DL Albumin (3.5-5.0) g/dL Globulin (2.2-3.9) gm/dL Albumin/Globulin Ratio (1.0-2.1) Lipase (23-300) U/L Venous Blood Potassium (3.6-5.2) mmol/L Urine Color (YELLOW) Urine Clarity (Clear) Urine pH (5.0-8.0) Ur Specific [place] (1.003-1.030) Urine Protein (NEGATIVE) mg/dL Urine Glucose (UA) (Normal) mg/dL Urine Ketones (NEGATIVE) mg/dL Urine Blood (NEGATIVE) Urine Nitrate (NEGATIVE) Urine Bilirubin (NEGATIVE) Urine Urobilinogen (0.2-1.0) mg/dL Ur Leukocyte Esterase (Negative) Alex/uL Urine RBC (Auto) (0-3) /hpf Urine Microscopic WBC (0-5) /hpf Ur Squamous Epith Cells (0-5) /hpf Amorphous Sediment (<OCC) /ul Urine Bacteria (<OCC) Urine Yeast (Budding) (NEGATIVE) /hpf Urine Opiates Screen (NEGATIVE) Urine Methadone Screen (NEGATIVE) Ur Barbiturates Screen (NEGATIVE) Ur Phencyclidine Scrn (NEGATIVE) Ur Amphetamines Screen (NEGATIVE) U Benzodiazepines Scrn (NEGATIVE) U Oth Cocaine Metabols (NEGATIVE) U Cannabinoids Screen (NEGATIVE) Alcohol, Quantitative (0-10) mg/dl Blood Type O POSITIVE Antibody Screen Negative Crossmatch See Detail BBK History Checked No verified bt 01/08/17 01/08/17 01/08/17 Range/Units 19:43 19:41 19:35 WBC (4.8-10.8) K/uL RBC (4.40-5.90) Mil/uL Hgb (12.0-18.0) g/dL Hct (35.0-51.0) % MCV (80.0-94.0) fl MCH (27.0-31.0) pg MCHC (33.0-37.0) g/dL RDW (11.5-14.5) % Plt Count (130-400) K/uL MPV (7.2-11.7) fl Neut % (Auto) (50.0-75.0) % Lymph % (Auto) (20.0-40.0) % [place] % (Auto) (0.0-10.0) % Eos % (Auto) (0.0-4.0) % Baso % (Auto) (0.0-2.0) % Neut # (1.8-7.0) K/uL Lymph # (1.0-4.3) K/uL [place] # (0.0-0.8) K/uL Eos # (0.0-0.7) K/uL Baso # (0.0-0.2) K/uL PT (9.8-13.1) Seconds INR (0.9-1.2) APTT (25.6-37.1) Seconds pO2 (30-55) mm/Hg VBG pH (7.32-7.43) VBG pCO2 (40-60) mmHg VBG HCO3 mmol/L VBG Total CO2 (22-28) mmol/L VBG O2 Sat (Calc) (40-65) % VBG Base Excess (0.0-2.0) mmol/L VBG Potassium (3.6-5.2) mmol/L Sodium 143 (132-148) mmol/L Chloride 109 H (98-107) mmol/L Glucose (75-110) mg/dL Lactate (0.7-2.1) mmol/L FiO2 % Potassium 3.5 L (3.6-5.0) MMOL/L Carbon Dioxide 19 L (22-30) mmol/L Anion Gap 19 (10-20) BUN 48 H (9-20) mg/dl Creatinine 1.7 H (0.8-1.5) mg/dL Est GFR ( Amer) 56 Est GFR (Non-Af Amer) 46 POC Glucose (mg/dL) (65-110) mg/dL Random Glucose 133 H (75-110) mg/dL Lactic Acid (0.7-2.1) MMOL/L Calcium 8.3 L (8.4-10.2) mg/dL Phosphorus 1.5 L (2.5-4.5) mg/dl Magnesium 1.4 L (1.6-2.3) MG/DL Total Bilirubin 10.0 H (0.2-1.3) mg/dl Direct Bilirubin 7.5 H (0.0-0.4) mg/ml AST 253 H (17-59) U/L ALT 46 (21-72) U/L Alkaline Phosphatase 226 H (38-126) U/L Ammonia 70 H (16-60) umo/L Total Creatine Kinase 1082 H (55-170) U/L Troponin I 0.0320 (0.00-0.120) ng/mL Total Protein 9.3 H (6.3-8.2) G/DL Albumin 2.8 L (3.5-5.0) g/dL Globulin 6.5 H (2.2-3.9) gm/dL Albumin/Globulin Ratio 0.4 L (1.0-2.1) Lipase 529 H (23-300) U/L Venous Blood Potassium (3.6-5.2) mmol/L Urine Color (YELLOW) Urine Clarity (Clear) Urine pH (5.0-8.0) Ur Specific [place] (1.003-1.030) Urine Protein (NEGATIVE) mg/dL Urine Glucose (UA) (Normal) mg/dL Urine Ketones (NEGATIVE) mg/dL Urine Blood (NEGATIVE) Urine Nitrate (NEGATIVE) Urine Bilirubin (NEGATIVE) Urine Urobilinogen (0.2-1.0) mg/dL Ur Leukocyte Esterase (Negative) Alex/uL Urine RBC (Auto) (0-3) /hpf Urine Microscopic WBC (0-5) /hpf Ur Squamous Epith Cells (0-5) /hpf Amorphous Sediment (<OCC) /ul Urine Bacteria (<OCC) Urine Yeast (Budding) (NEGATIVE) /hpf Urine Opiates Screen (NEGATIVE) Urine Methadone Screen (NEGATIVE) Ur Barbiturates Screen (NEGATIVE) Ur Phencyclidine Scrn (NEGATIVE) Ur Amphetamines Screen (NEGATIVE) U Benzodiazepines Scrn (NEGATIVE) U Oth Cocaine Metabols (NEGATIVE) U Cannabinoids Screen (NEGATIVE) Alcohol, Quantitative < 10 (0-10) mg/dl Blood Type Antibody Screen Crossmatch BBK History Checked 01/08/17 01/08/17 Range/Units 19:27 19:19 WBC (4.8-10.8) K/uL RBC (4.40-5.90) Mil/uL Hgb (12.0-18.0) g/dL Hct (35.0-51.0) % MCV (80.0-94.0) fl MCH (27.0-31.0) pg MCHC (33.0-37.0) g/dL RDW (11.5-14.5) % Plt Count (130-400) K/uL MPV (7.2-11.7) fl Neut % (Auto) (50.0-75.0) % Lymph % (Auto) (20.0-40.0) % [place] % (Auto) (0.0-10.0) % Eos % (Auto) (0.0-4.0) % Baso % (Auto) (0.0-2.0) % Neut # (1.8-7.0) K/uL Lymph # (1.0-4.3) K/uL [place] # (0.0-0.8) K/uL Eos # (0.0-0.7) K/uL Baso # (0.0-0.2) K/uL PT (9.8-13.1) Seconds INR (0.9-1.2) APTT (25.6-37.1) Seconds pO2 30 (30-55) mm/Hg VBG pH 7.44 H (7.32-7.43) VBG pCO2 34 L (40-60) mmHg VBG HCO3 23.6 mmol/L VBG Total CO2 24.1 (22-28) mmol/L VBG O2 Sat (Calc) 62.6 (40-65) % VBG Base Excess -0.8 L (0.0-2.0) mmol/L VBG Potassium 3.7 (3.6-5.2) mmol/L Sodium 142.0 (132-148) mmol/L Chloride 107.0 (98-107) mmol/L Glucose 133 H (75-110) mg/dL Lactate 2.1 (0.7-2.1) mmol/L FiO2 21.0 % Potassium (3.6-5.0) MMOL/L Carbon Dioxide (22-30) mmol/L Anion Gap (10-20) BUN (9-20) mg/dl Creatinine (0.8-1.5) mg/dL Est GFR ( Amer) Est GFR (Non-Af Amer) POC Glucose (mg/dL) 147 H (65-110) mg/dL Random Glucose (75-110) mg/dL Lactic Acid (0.7-2.1) MMOL/L Calcium (8.4-10.2) mg/dL Phosphorus (2.5-4.5) mg/dl Magnesium (1.6-2.3) MG/DL Total Bilirubin (0.2-1.3) mg/dl Direct Bilirubin (0.0-0.4) mg/ml AST (17-59) U/L ALT (21-72) U/L Alkaline Phosphatase (38-126) U/L Ammonia (16-60) umo/L Total Creatine Kinase (55-170) U/L Troponin I (0.00-0.120) ng/mL Total Protein (6.3-8.2) G/DL Albumin (3.5-5.0) g/dL Globulin (2.2-3.9) gm/dL Albumin/Globulin Ratio (1.0-2.1) Lipase (23-300) U/L Venous Blood Potassium 3.7 (3.6-5.2) mmol/L Urine Color (YELLOW) Urine Clarity (Clear) Urine pH (5.0-8.0) Ur Specific Calvin (1.003-1.030) Urine Protein (NEGATIVE) mg/dL Urine Glucose (UA) (Normal) mg/dL Urine Ketones (NEGATIVE) mg/dL Urine Blood (NEGATIVE) Urine Nitrate (NEGATIVE) Urine Bilirubin (NEGATIVE) Urine Urobilinogen (0.2-1.0) mg/dL Ur Leukocyte Esterase (Negative) Alex/uL Urine RBC (Auto) (0-3) /hpf Urine Microscopic WBC (0-5) /hpf Ur Squamous Epith Cells (0-5) /hpf Amorphous Sediment (<OCC) /ul Urine Bacteria (<OCC) Urine Yeast (Budding) (NEGATIVE) /hpf Urine Opiates Screen (NEGATIVE) Urine Methadone Screen (NEGATIVE) Ur Barbiturates Screen (NEGATIVE) Ur Phencyclidine Scrn (NEGATIVE) Ur Amphetamines Screen (NEGATIVE) U Benzodiazepines Scrn (NEGATIVE) U Oth Cocaine Metabols (NEGATIVE) U Cannabinoids Screen (NEGATIVE) Alcohol, Quantitative (0-10) mg/dl Blood Type Antibody Screen Crossmatch BBK History Checked Laboratory Results - last 24 hr 01/08/17 01/08/17 01/08/17 19:19 19:27 19:35 WBC RBC Hgb Hct MCV MCH MCHC RDW Plt Count MPV Neut % (Auto) Lymph % (Auto) [place] % (Auto) Eos % (Auto) Baso % (Auto) Neut # Lymph # [place] # Eos # Baso # PT INR APTT pO2 30 VBG pH 7.44 H VBG pCO2 34 L VBG HCO3 23.6 VBG Total CO2 24.1 VBG O2 Sat (Calc) 62.6 VBG Base Excess -0.8 L VBG Potassium 3.7 Sodium 142.0 Chloride 107.0 Glucose 133 H Lactate 2.1 FiO2 21.0 Potassium Carbon Dioxide Anion Gap BUN Creatinine Est GFR ( Amer) Est GFR (Non-Af Amer) POC Glucose (mg/dL) 147 H Random Glucose Lactic Acid Calcium Phosphorus Magnesium Total Bilirubin Direct Bilirubin 7.5 H AST ALT Alkaline Phosphatase Ammonia Total Creatine Kinase 1082 H Troponin I Total Protein Albumin Globulin Albumin/Globulin Ratio Lipase Venous Blood Potassium 3.7 Urine Color Urine Clarity Urine pH Ur Specific Calvin Urine Protein Urine Glucose (UA) Urine Ketones Urine Blood Urine Nitrate Urine Bilirubin Urine Urobilinogen Ur Leukocyte Esterase Urine RBC (Auto) Urine Microscopic WBC Ur Squamous Epith Cells Amorphous Sediment Urine Bacteria Urine Yeast (Budding) Urine Opiates Screen Urine Methadone Screen Ur Barbiturates Screen Ur Phencyclidine Scrn Ur Amphetamines Screen U Benzodiazepines Scrn U Oth Cocaine Metabols U Cannabinoids Screen Alcohol, Quantitative Blood Type Antibody Screen Crossmatch BBK History Checked 01/08/17 01/08/17 01/08/17 19:41 19:43 19:43 WBC 11.5 H RBC 2.85 L Hgb 8.5 L Hct 25.5 L MCV 89.5 MCH 29.7 MCHC 33.2 RDW 21.2 H Plt Count 69 L MPV 8.2 Neut % (Auto) 29.3 L Lymph % (Auto) 64.6 H [place] % (Auto) 4.5 Eos % (Auto) 0.2 Baso % (Auto) 1.4 Neut # 3.4 Lymph # 7.4 H [place] # 0.5 Eos # 0.0 Baso # 0.2 PT INR APTT pO2 VBG pH VBG pCO2 VBG HCO3 VBG Total CO2 VBG O2 Sat (Calc) VBG Base Excess VBG Potassium Sodium 143 Chloride 109 H Glucose Lactate FiO2 Potassium 3.5 L Carbon Dioxide 19 L Anion Gap 19 BUN 48 H Creatinine 1.7 H Est GFR ( Amer) 56 Est GFR (Non-Af Amer) 46 POC Glucose (mg/dL) Random Glucose 133 H Lactic Acid Calcium 8.3 L Phosphorus 1.5 L Magnesium 1.4 L Total Bilirubin 10.0 H Direct Bilirubin AST 253 H ALT 46 Alkaline Phosphatase 226 H Ammonia 70 H Total Creatine Kinase Troponin I 0.0320 Total Protein 9.3 H Albumin 2.8 L Globulin 6.5 H Albumin/Globulin Ratio 0.4 L Lipase 529 H Venous Blood Potassium Urine Color Urine Clarity Urine pH Ur Specific [place] Urine Protein Urine Glucose (UA) Urine Ketones Urine Blood Urine Nitrate Urine Bilirubin Urine Urobilinogen Ur Leukocyte Esterase Urine RBC (Auto) Urine Microscopic WBC Ur Squamous Epith Cells Amorphous Sediment Urine Bacteria Urine Yeast (Budding) Urine Opiates Screen Urine Methadone Screen Ur Barbiturates Screen Ur Phencyclidine Scrn Ur Amphetamines Screen U Benzodiazepines Scrn U Oth Cocaine Metabols U Cannabinoids Screen Alcohol, Quantitative < 10 Blood Type Antibody Screen Crossmatch BBK History Checked 01/08/17 01/08/17 01/08/17 19:43 19:43 20:45 WBC RBC Hgb Hct MCV MCH MCHC RDW Plt Count MPV Neut % (Auto) Lymph % (Auto) [place] % (Auto) Eos % (Auto) Baso % (Auto) Neut # Lymph # [place] # Eos # Baso # PT 23.6 H INR 2.1 H APTT 44.2 H pO2 VBG pH VBG pCO2 VBG HCO3 VBG Total CO2 VBG O2 Sat (Calc) VBG Base Excess VBG Potassium Sodium Chloride Glucose Lactate FiO2 Potassium Carbon Dioxide Anion Gap BUN Creatinine Est GFR ( Amer) Est GFR (Non-Af Amer) POC Glucose (mg/dL) Random Glucose Lactic Acid Calcium Phosphorus Magnesium Total Bilirubin Direct Bilirubin AST ALT Alkaline Phosphatase Ammonia Total Creatine Kinase Troponin I Total Protein Albumin Globulin Albumin/Globulin Ratio Lipase Venous Blood Potassium Urine Color Red Urine Clarity Turbid Urine pH 6.5 Ur Specific [place] 1.025 Urine Protein >=300 Urine Glucose (UA) 100 Urine Ketones 15 Urine Blood Large Urine Nitrate Positive H Urine Bilirubin Large Urine Urobilinogen 4.0 Ur Leukocyte Esterase Trace H Urine RBC (Auto) 877 H Urine Microscopic WBC 89 H Ur Squamous Epith Cells 5 Amorphous Sediment Moderate H Urine Bacteria Mod H Urine Yeast (Budding) Many H Urine Opiates Screen Urine Methadone Screen Ur Barbiturates Screen Ur Phencyclidine Scrn Ur Amphetamines Screen U Benzodiazepines Scrn U Oth Cocaine Metabols U Cannabinoids Screen Alcohol, Quantitative Blood Type O POSITIVE Antibody Screen Negative Crossmatch See Detail BBK History Checked No verified bt 01/08/17 01/09/17 01/09/17 20:58 05:30 05:30 WBC 9.6 RBC 2.57 L Hgb 7.7 L Hct 23.4 L MCV 91.0 MCH 30.1 MCHC 33.1 RDW 21.4 H Plt Count 57 L MPV Neut % (Auto) Lymph % (Auto) [place] % (Auto) Eos % (Auto) Baso % (Auto) Neut # Lymph # [place] # Eos # Baso # PT INR APTT pO2 VBG pH VBG pCO2 VBG HCO3 VBG Total CO2 VBG O2 Sat (Calc) VBG Base Excess VBG Potassium Sodium Chloride Glucose Lactate FiO2 Potassium Carbon Dioxide Anion Gap BUN Creatinine Est GFR ( Amer) Est GFR (Non-Af Amer) POC Glucose (mg/dL) Random Glucose Lactic Acid Calcium Phosphorus Magnesium Total Bilirubin Direct Bilirubin AST ALT Alkaline Phosphatase Ammonia 26 D Total Creatine Kinase Troponin I Total Protein Albumin Globulin Albumin/Globulin Ratio Lipase Venous Blood Potassium Urine Color Urine Clarity Urine pH Ur Specific [place] Urine Protein Urine Glucose (UA) Urine Ketones Urine Blood Urine Nitrate Urine Bilirubin Urine Urobilinogen Ur Leukocyte Esterase Urine RBC (Auto) Urine Microscopic WBC Ur Squamous Epith Cells Amorphous Sediment Urine Bacteria Urine Yeast (Budding) Urine Opiates Screen Negative Urine Methadone Screen Negative Ur Barbiturates Screen Negative Ur Phencyclidine Scrn Negative Ur Amphetamines Screen Negative U Benzodiazepines Scrn Negative U Oth Cocaine Metabols Negative U Cannabinoids Screen Negative Alcohol, Quantitative Blood Type Antibody Screen Crossmatch BBK History Checked 01/09/17 01/09/17 01/09/17 05:30 05:30 05:30 WBC RBC Hgb Hct MCV MCH MCHC RDW Plt Count MPV Neut % (Auto) Lymph % (Auto) [place] % (Auto) Eos % (Auto) Baso % (Auto) Neut # Lymph # [place] # Eos # Baso # PT 24.8 H INR 2.2 H APTT 46.5 H pO2 VBG pH VBG pCO2 VBG HCO3 VBG Total CO2 VBG O2 Sat (Calc) VBG Base Excess VBG Potassium Sodium 148 Chloride 116 H Glucose Lactate FiO2 Potassium 2.7 L Carbon Dioxide 21 L Anion Gap 14 BUN 44 H Creatinine 1.6 H Est GFR ( Amer) > 60 Est GFR (Non-Af Amer) 50 POC Glucose (mg/dL) Random Glucose 105 Lactic Acid 1.0 Calcium 7.6 L Phosphorus Magnesium Total Bilirubin 9.1 H Direct Bilirubin AST 199 H D ALT 45 Alkaline Phosphatase 186 H Ammonia Total Creatine Kinase 538 H Troponin I Total Protein 8.2 Albumin 2.4 L Globulin 5.8 H Albumin/Globulin Ratio 0.4 L Lipase Venous Blood Potassium Urine Color Urine Clarity Urine pH Ur Specific [place] Urine Protein Urine Glucose (UA) Urine Ketones Urine Blood Urine Nitrate Urine Bilirubin Urine Urobilinogen Ur Leukocyte Esterase Urine RBC (Auto) Urine Microscopic WBC Ur Squamous Epith Cells Amorphous Sediment Urine Bacteria Urine Yeast (Budding) Urine Opiates Screen Urine Methadone Screen Ur Barbiturates Screen Ur Phencyclidine Scrn Ur Amphetamines Screen U Benzodiazepines Scrn U Oth Cocaine Metabols U Cannabinoids Screen Alcohol, Quantitative Blood Type Antibody Screen Crossmatch BBK History Checked 01/09/17 01/09/17 07:00 12:25 WBC RBC Hgb Hct MCV MCH MCHC RDW Plt Count MPV Neut % (Auto) Lymph % (Auto) [place] % (Auto) Eos % (Auto) Baso % (Auto) Neut # Lymph # [place] # Eos # Baso # PT INR APTT pO2 VBG pH VBG pCO2 VBG HCO3 VBG Total CO2 VBG O2 Sat (Calc) VBG Base Excess VBG Potassium Sodium Chloride Glucose Lactate FiO2 Potassium Carbon Dioxide Anion Gap BUN Creatinine Est GFR ( Amer) Est GFR (Non-Af Amer) POC Glucose (mg/dL) Random Glucose Lactic Acid Calcium Phosphorus 1.8 L Magnesium 1.3 L Total Bilirubin Direct Bilirubin AST ALT Alkaline Phosphatase Ammonia Total Creatine Kinase Troponin I Total Protein Albumin Globulin Albumin/Globulin Ratio Lipase Venous Blood Potassium Urine Color Urine Clarity Urine pH Ur Specific [place] Urine Protein Urine Glucose (UA) Urine Ketones Urine Blood Urine Nitrate Urine Bilirubin Urine Urobilinogen Ur Leukocyte Esterase Urine RBC (Auto) Urine Microscopic WBC Ur Squamous Epith Cells Amorphous Sediment Urine Bacteria Urine Yeast (Budding) Urine Opiates Screen Urine Methadone Screen Ur Barbiturates Screen Ur Phencyclidine Scrn Ur Amphetamines Screen U Benzodiazepines Scrn U Oth Cocaine Metabols U Cannabinoids Screen Alcohol, Quantitative Blood Type Cancelled Antibody Screen Cancelled Crossmatch See Detail BBK History Checked Cancelled Fingerstick Blood Sugar Results: 143 Review of Systems - Review of Systems Systems not reviewed;Unavailable: Altered Mental Status Critical Care Progress Note - Extremities/Vascular Does the Patient have a Central Venous Catheter?: No Does the Patient need a Central Venous Catheter?: No Does the Patient have a Hernandez Catheter?: Yes Does the Patient need a Hernandez Catheter?: Yes Catheter Insertion Criteria: Need for accurate measurement of output in critically ill patient - Nutrition Nutrition: Nutrition Category Date Time Status Heart Healthy Diet [DIET] Diets 01/09/17 Lunch Active
[2017-01-09] MEDS: Potassium & Sodium Phosphate PO SCH ×3 (14:03→22:35)
--- NOTE | 2017-01-09 19:19 | CP.PCM.PN ---
Subjective - Date & Time of Evaluation Date of Evaluation: 01/09/17 Time of Evaluation: 10:00 - Subjective Subjective: Patient seen and evaluated bedside. Chronically ill male,cachetic with ascites , confused , unable to follow appropriately commands, answering few questions. Tachycardic HR 126 Bp 143/93 saturating 99 % in RA WBC 9.6 Hgb 7.7 plt 57 K INR 2.2 BUN/ cr 44/1.6 CPK 538 lipase 529 K 2.7 mg 1.8 Objective - Vital Signs/Intake and Output Vital Signs (last 24 hours): Temp Pulse Resp BP Pulse Ox 98 F 126 H 19 133/98 H 100 01/09/17 16:00 01/09/17 18:00 01/09/17 18:00 01/09/17 18:00 01/09/17 18:00 Intake and Output: 01/09/17 01/10/17 18:59 06:59 Intake Total 2925 Output Total 400 Balance 2525 - Medications Medications: Current Medications Piperacillin Sod/Tazobactam (Sod 2.25 gm/ Sodium Chloride) 100 mls @ 100 mls/ hr IVPB Q6 MEG PRN Reason: Protocol Last Admin: 01/09/17 17:22 Dose: 100 mls/hr Dextrose/Sodium Chloride (Dextrose 5%/0.9% Ns 1000 Ml) 1,000 mls @ 125 mls/hr IV .Q8H MEG Stop: 01/09/17 22:22 Last Admin: 01/09/17 18:20 Dose: 125 mls/hr Lorazepam (Ativan) 1 mg IVP Q2 PRN PRN Reason: Agitation Stop: 01/10/17 00:01 Last Admin: 01/08/17 22:41 Dose: 1 mg Pantoprazole Sodium (Protonix Inj) 40 mg IVP DAILY [facility] Last Admin: 01/09/17 08:23 Dose: 40 mg Potassium Phos/Sodium Phos (Neutra-Phos) 1 pkt PO QID [facility] Last Admin: 01/09/17 17:23 Dose: 1 pkt - Labs Labs: 01/09/17 05:30 01/09/17 05:30 PT 24.8 Seconds (9.8-13.1) H 01/09/17 05:30 INR 2.2 (0.9-1.2) H 01/09/17 05:30 APTT 46.5 Seconds (25.6-37.1) H 01/09/17 05:30 - Constitutional Appears: Unkempt, Agitated, Confused, Cachectic, Chronically Ill - Head Exam Additional comments: right cordelia orbital echymosis - Eye Exam Eye Exam: PERRL, Scleral icterus - ENT Exam ENT Exam: Mucous Membranes Moist, Normal Exam - Neck Exam Neck Exam: Normal Inspection - Respiratory Exam Respiratory Exam: Clear to Ausculation Bilateral, NORMAL BREATHING PATTERN. absent: Rhonchi, Wheezes - Cardiovascular Exam Cardiovascular Exam: Tachycardia. absent: JVD - GI/Abdominal Exam GI & Abdominal Exam: Distended (with ascites ). absent: Guarding, Rebound - Rectal Exam Rectal Exam: Deferred - Extremities Exam Extremities Exam: absent: Pedal Edema - Neurological Exam Neurological Exam: Alert, Awake Additional comments: moving all extremities following simple commands and answering few questions - Psychiatric Exam Psychiatric exam: Agitated, Flat Affect - Skin Skin Exam: Abrasion (left hip skin laceration withclean base), Cyanosis (area skin abrasions), Pallor Additional comments: jaundiced Assessment and Plan - Assessment and Plan (Free Text) Assessment: 32 yr old male with unknown past medical history except for alcoholism was brought to ED after having been found lying on ground littered in his own feces for unknown period of time, noted to be lethargic, moaning and groaning with skin tears on back and sides of hips. Work up included CT head and spine which were neg for any acute pathology. Further work up revealed elevated ammonia level (72), and bilirubin (10), BAL<10 and CPK 1082. He was admitted for further management after the initial interventions in ED under hospitalist care to ICU. 1.AMS most likely secondary to Hepatic encephalopathy patient has all stigmata of liver cirrhosis Will need to rule out SBP For abdominal parasenthesis by IR in AM CXR showed no infiltrate. CT head with no acute pathology Follow up blood and urine cx Continue thiamine, Folic acid, MVI, IVF seizure/ withdrawal precautions Ativan PRN Hold Librium for now on zosyn Iv empirically for SBP lactulose given since ammonia levels were elevated 2. Liver cirrhosis MELD score 28 Will call GI eval supportive care for now 2.ROHIT BUN/ Cr 44/1.6 continue IVF 3.Coagulopathy/ thrombocytopenia/ Anemia most likley related to chronic liver disease and chronic alcoholism type and cross fore now patient can not give consent nick transfusion Hgb7.7 Will hold off transfusion for now since there is no evidence of active bleeding supportive care 4. Chronic alcoholism Withdrwal/ seizure precautions thiamine, Folic acid , MVI Ativan PRN Hold librium for now 5.Rhabdomyelysis patient has signs of trauma right periorbital echymosis and left hip skin abrasions CT head and spine showed no acute pathology CPK elevated 1082 Continue IVF 6. Elevated lipase lipase 529 most likely secondary to alcoholism continue IVF , supportive care 7. Electrolyte abnormalities /hypokalemia/ hypomagnesemia/ hypophosphatemia replaced with KCl runs, mg Iv and Phosp 8. Multiple skin abrasions wound nurse consult 9. DVT prophylaxis hold anticoagulation since patient has INr 2.2 and thrombocytopenia
[2017-01-10 05:31] LABS: HEMATOCRIT 21.5 % (35.0-51.0); MEAN CELL VOLUME 91.8 fl (80.0-94.0); MEAN CORPUSCULAR HEMOGLOBIN 30.3 pg (27.0-31.0); RED CELL DISTRIBUTION WIDTH 21.7 % (11.5-14.5); WHITE BLOOD COUNT 8.8 K/uL (4.8-10.8)
[2017-01-10 05:39] LABS: ALB/GLOB RATIO 0.4 (1.0-2.1); CALCIUM 7.2 mg/dL (8.4-10.2); MAGNESIUM 1.3 MG/DL (1.6-2.3); POTASSIUM 2.7 MMOL/L (3.6-5.0); TOTAL PROTEIN 7.7 G/DL (6.3-8.2)
[2017-01-10 05:48] LABS: PHOSPHOROUS 0.9 mg/dl (2.5-4.5)
[2017-01-10] MEDS ORDERED: Magnesium Sulfate 4 gm/100 ml 4 GM/100 ML BAG IVPB ONE (07:59)
[2017-01-10] MEDS ORDERED: Potassium Chloride 20 mEq ER Tab PO ONE (08:15)
--- NOTE | 2017-01-10 08:34 | CP.CCUPN ---
CCU Subjective - Physician Review Events Since Last Encounter (Free Text): 01/10/17 16:58 The patient was Seen/interviewed and examined by me at the bedside during ICU round, Medical records reviewed and Management issues were discussed and formulated with the house staff. Clinically improving, More awake, oriented today, follows commands. Awake, comfortable, NAD Afebrile Sever Abd distension and generalized jaundice noted. Also noted with right eye and middle forehead bruising. Evaluated by wound care today for Sacral area, b/l buttocks and both hip areas with redness, scratches and open bleeding areas Pt on 1:1 constant observation for safety. CCU Objective - Vital Signs / Intake & Output Vital Signs (Last 4 hours): Vital Signs Pulse Resp BP Pulse Ox 01/10/17 06:00 107 H 21 121/81 92 L Intake and Output (Last 8hrs): Intake & Output 01/09/17 01/10/17 01/10/17 22:59 06:59 14:59 Intake Total 1350 1100 Output Total 50 400 Balance 1300 700 Intake: IV 1000 1000 Intake, Piggyback 100 100 Oral 250 Output: Urine 50 400 Urethral (Hernandez) 50 400 Other: # Bowel Movements 1 1 - Physical Exam Head: Positive for: Abrasion, Other (temporal mm atrophy, bilateral orbital ecchymosis R worse than L.) Pupils: Positive for: PERRL Extroacular Muscles: Positive for: EOMI Conjunctiva: Positive for: Icteric Nose (External): Positive for: Atraumatic Nose (Internal): Positive for: No Active Bleeding Neck: Positive for: Normal Range of Motion. Negative for: Meningeal Signs, JVD Respiratory/Chest: Positive for: Clear to Auscultation Cardiovascular: Positive for: Regular Rate and Rhythm, Normal S1, S2, Tachycardic. Negative for: Murmurs, Rub Abdomen: Positive for: Distention, Normal Bowel Sounds. Negative for: Tenderness, Peritoneal Signs, Rebound, Guarding Lower Extremity: Positive for: Edema, NORMAL PULSES. Negative for: CALF TENDERNESS, Cyanosis, Tenderness Neurological: Positive for: GCS=15 Skin: Positive for: Warm, Laceration, Other (macerated and erythematous skin changes over both hips and mid sacral area.). Negative for: Rashes Lymphatic: Negative for: Cervical Adenopathy, Inguinal Adenopathy Psychiatric: Positive for: Lethargic - Medications Active Medications: Active Medications Generic Name Dose Route Start Last Admin Trade Name Ralphq PRN Reason Stop Dose Admin Piperacillin Sod/Tazobactam 100 mls @ 100 mls/hr 01/09/17 04:00 01/10/17 03: 36 Sod 2.25 gm/ Sodium Chloride IVPB 100 mls/hr Q6 MEG Administration Protocol Potassium Chloride 50 mls @ 50 mls/hr 01/10/17 08:00 Potassium Cl 10meq/50ml Sterile Water IVPB 01/10/17 11:59 Q1 MEG Magnesium Sulfate 4 gm in 100 mls @ 50 mls/hr 01/10/17 07:59 Magnesium Sulfate 4 Gm/100 Ml H2o IVPB 01/10/17 09:58 ONCE ONE 2 GM/HR Pantoprazole Sodium 40 mg 01/09/17 09:00 01/09/17 08:23 Protonix Inj IVP 40 mg DAILY MEG Administration Phytonadione 10 mg 01/10/17 09:00 Vitamin K Tab PO 01/10/17 09:01 ONCE ONE Potassium Phos/Sodium Phos 1 pkt 01/09/17 13:00 01/09/17 22:35 Neutra-Phos PO 1 pkt QID MEG Administration - Patient Studies Lab Studies: Microbiology Studies 01/08/17 08:15 Blood Culture - Preliminary Blood NO GROWTH AFTER 24 HOURS 01/08/17 07:35 Blood Culture - Preliminary Blood NO GROWTH AFTER 24 HOURS Lab Studies 01/10/17 01/10/17 01/10/17 Range/Units 04:20 04:20 04:20 WBC 8.8 (4.8-10.8) K/uL RBC 2.34 L (4.40-5.90) Mil/uL Hgb 7.1 L (12.0-18.0) g/dL Hct 21.5 L (35.0-51.0) % MCV 91.8 (80.0-94.0) fl MCH 30.3 (27.0-31.0) pg MCHC 33.0 (33.0-37.0) g/dL RDW 21.7 H (11.5-14.5) % Plt Count 48 L (130-400) K/uL Sodium 141 (132-148) mmol/l Potassium 2.7 L (3.6-5.0) MMOL/L Chloride 114 H (98-107) mmol/L Carbon Dioxide 18 L (22-30) mmol/L Anion Gap 12 (10-20) BUN 34 H (9-20) mg/dl Creatinine 1.7 H (0.8-1.5) mg/dL Est GFR ( Amer) 56 Est GFR (Non-Af Amer) 46 Random Glucose 104 (75-110) mg/dL Calcium 7.2 L (8.4-10.2) mg/dL Phosphorus 0.9 L* (2.5-4.5) mg/dl Magnesium 1.3 L (1.6-2.3) MG/DL Total Bilirubin 9.0 H (0.2-1.3) mg/dl AST 171 H (17-59) U/L ALT 47 (21-72) U/L Alkaline Phosphatase 148 H D (38-126) U/L Ammonia 40 D (16-60) umo/L Total Creatine Kinase 326 H (55-170) U/L Total Protein 7.7 (6.3-8.2) G/DL Albumin 2.2 L (3.5-5.0) g/dL Globulin 5.6 H (2.2-3.9) gm/dL Albumin/Globulin Ratio 0.4 L (1.0-2.1) Lipase 1084 H (23-300) U/L Blood Type Blood Type Confirm Antibody Screen Crossmatch BBK History Checked 01/09/17 01/09/17 01/08/17 Range/Units 12:25 05:30 19:43 WBC (4.8-10.8) K/uL RBC (4.40-5.90) Mil/uL Hgb (12.0-18.0) g/dL Hct (35.0-51.0) % MCV (80.0-94.0) fl MCH (27.0-31.0) pg MCHC (33.0-37.0) g/dL RDW (11.5-14.5) % Plt Count (130-400) K/uL Sodium (132-148) mmol/l Potassium (3.6-5.0) MMOL/L Chloride (98-107) mmol/L Carbon Dioxide (22-30) mmol/L Anion Gap (10-20) BUN (9-20) mg/dl Creatinine (0.8-1.5) mg/dL Est GFR ( Amer) Est GFR (Non-Af Amer) Random Glucose (75-110) mg/dL Calcium (8.4-10.2) mg/dL Phosphorus (2.5-4.5) mg/dl Magnesium (1.6-2.3) MG/DL Total Bilirubin (0.2-1.3) mg/dl AST (17-59) U/L ALT (21-72) U/L Alkaline Phosphatase (38-126) U/L Ammonia (16-60) umo/L Total Creatine Kinase (55-170) U/L Total Protein (6.3-8.2) G/DL Albumin (3.5-5.0) g/dL Globulin (2.2-3.9) gm/dL Albumin/Globulin Ratio (1.0-2.1) Lipase (23-300) U/L Blood Type Cancelled O POSITIVE Blood Type Confirm O POSITIVE Antibody Screen Cancelled Negative Crossmatch See Detail See Detail BBK History Checked Cancelled No verified bt Laboratory Results - last 24 hr 01/08/17 01/09/17 01/09/17 19:43 05:30 12:25 WBC RBC Hgb Hct MCV MCH MCHC RDW Plt Count Sodium Potassium Chloride Carbon Dioxide Anion Gap BUN Creatinine Est GFR ( Amer) Est GFR (Non-Af Amer) Random Glucose Calcium Phosphorus Magnesium Total Bilirubin AST ALT Alkaline Phosphatase Ammonia Total Creatine Kinase Total Protein Albumin Globulin Albumin/Globulin Ratio Lipase Blood Type O POSITIVE Cancelled Blood Type Confirm O POSITIVE Antibody Screen Negative Cancelled Crossmatch See Detail See Detail BBK History Checked No verified bt Cancelled 01/10/17 01/10/17 01/10/17 04:20 04:20 04:20 WBC 8.8 RBC 2.34 L Hgb 7.1 L Hct 21.5 L MCV 91.8 MCH 30.3 MCHC 33.0 RDW 21.7 H Plt Count 48 L Sodium 141 Potassium 2.7 L Chloride 114 H Carbon Dioxide 18 L Anion Gap 12 BUN 34 H Creatinine 1.7 H Est GFR ( Amer) 56 Est GFR (Non-Af Amer) 46 Random Glucose 104 Calcium 7.2 L Phosphorus 0.9 L* Magnesium 1.3 L Total Bilirubin 9.0 H AST 171 H ALT 47 Alkaline Phosphatase 148 H D Ammonia 40 D Total Creatine Kinase 326 H Total Protein 7.7 Albumin 2.2 L Globulin 5.6 H Albumin/Globulin Ratio 0.4 L Lipase 1084 H Blood Type Blood Type Confirm Antibody Screen Crossmatch BBK History Checked Fingerstick Blood Sugar Results: 143 Critical Care Progress Note - Nutrition Nutrition: Nutrition Category Date Time Status Heart Healthy Diet [DIET] Diets 01/09/17 Lunch Active Assessment/Plan (1) Hepatic encephalopathy Current Visit: Yes Status: Acute (2) Liver cirrhosis Current Visit: Yes Status: Acute (3) ROHIT (acute kidney injury) Current Visit: Yes Status: Acute (4) Ascites Current Visit: Yes Status: Acute (5) Electrolyte abnormality Current Visit: Yes Status: Acute (6) Coagulopathy Current Visit: Yes Status: Acute (7) Thrombocytopenia Current Visit: Yes Status: Acute (8) Anemia Current Visit: Yes Status: Acute - Assessment and Plan (Free Text) Assessment: Some neurological improvement today, CT head with no acute pathology Continue with ICU care for hemodynamic, neurological and Respiratory monitoring Frequent Neurochecks, Aspiration and seizure precautions Lactulose. IVF hydration with D5 0.45NS with 20 meq KCL/liter Thiamine / Folate Transfuse 1 unit Packed RBC PO Vit K Continue on IV zosyn empirically for SBP IR Paracentesis after FFP transfusion CIWA protocol PRN Ativan Monitor urine output Replete K, Mg, Phos
[2017-01-10] MEDS: Potassium & Sodium Phosphate PO SCH ×4 (08:47→22:40)
[2017-01-10] MEDS: Potassium CL 10 MEQ/50 ML 50 ML IVPB SCH ×4 (08:49→12:08)
[2017-01-10] MEDS ORDERED: Potassium Phosphate 30 MMOLE in Sodium Chloride 0.9% 250 ML IV ONE (09:45)
[2017-01-10] MEDS: Potassium Ch 20mEq in D5-1/2NS 1,000 ML IV SCH ×2 (10:26→22:46)
--- NOTE | 2017-01-10 11:54 | CP.PCM.PN ---
Subjective - Date & Time of Evaluation Date of Evaluation: 01/10/17 Time of Evaluation: 11:00 - Subjective Subjective: Pt seen with spanish interpreter He told us his name- Shivam Polo, lives in alone ?, unemployed he ate his breakfast Febrile this am complains of abd discomfort no CP sl SOB no nausea nor vomiting, tolerating PO diet Objective - Vital Signs/Intake and Output Vital Signs (last 24 hours): Temp Pulse Resp BP Pulse Ox 99.7 F H 108 H 23 115/69 100 01/10/17 08:00 01/10/17 10:00 01/10/17 10:00 01/10/17 10:00 01/10/17 10:00 Intake and Output: 01/10/17 01/10/17 06:59 18:59 Intake Total 1600 1215 Output Total 400 125 Balance 1200 1090 - Medications Medications: Current Medications Piperacillin Sod/Tazobactam (Sod 2.25 gm/ Sodium Chloride) 100 mls @ 100 mls/ hr IVPB Q6 MEG PRN Reason: Protocol Last Admin: 01/10/17 09:00 Dose: 100 mls/hr Potassium Chloride (Potassium Cl 10meq/50ml Sterile Water) 50 mls @ 50 mls/hr IVPB Q1 MEG Stop: 01/10/17 11:59 Last Admin: 01/10/17 10:56 Dose: 50 mls/hr Potassium Chloride/Dextrose/Sod Cl (Potassium Chl 20 Meq In D5-1/2ns) 1,000 mls @ 100 mls/hr IV .Q10H MEG Stop: 01/11/17 09:47 Last Admin: 01/10/17 10:26 Dose: 100 mls/hr Potassium Phosphate 30 mmole/ (Sodium Chloride) 260 mls @ 65 mls/hr IV ONCE ONE Stop: 01/10/17 13:44 Last Admin: 01/10/17 10:27 Dose: 65 mls/hr Pantoprazole Sodium (Protonix Inj) 40 mg IVP DAILY [facility] Last Admin: 01/10/17 08:47 Dose: 40 mg Potassium Phos/Sodium Phos (Neutra-Phos) 1 pkt PO QID [facility] Last Admin: 01/10/17 08:47 Dose: 1 pkt - Labs Labs: 01/10/17 04:20 01/10/17 04:20 PT 24.8 Seconds (9.8-13.1) H 01/09/17 05:30 INR 2.2 (0.9-1.2) H 01/09/17 05:30 APTT 46.5 Seconds (25.6-37.1) H 01/09/17 05:30 - Constitutional Appears: Older Than Stated Age, Chronically Ill - Head Exam Head Exam: NORMOCEPHALIC - Eye Exam Eye Exam: Periorbital swelling, Scleral icterus Pupil Exam: NORMAL ACCOMODATION Additional comments: periorbital hematoma - ENT Exam ENT Exam: Mucous Membranes Moist, Normal External Ear Exam - Neck Exam Neck Exam: Full ROM. absent: Meningismus - Respiratory Exam Respiratory Exam: Rales, Rhonchi - Cardiovascular Exam Cardiovascular Exam: Tachycardia, REGULAR RHYTHM, +S1, +S2 - GI/Abdominal Exam GI & Abdominal Exam: Distended, Tenderness, Normal Bowel Sounds Additional comments: ascites - Extremities Exam Extremities Exam: Full ROM, Normal Capillary Refill. absent: Calf Tenderness, Pedal Edema - Back Exam Back Exam: Full ROM. absent: CVA tenderness (L), CVA tenderness (R) - Neurological Exam Neurological Exam: Alert, Awake, CN II-XII Intact Additional comments: oriented to person and place moves all extremities - Psychiatric Exam Psychiatric exam: Flat Affect - Skin Skin Exam: Abrasion, Dry, Warm Additional comments: jaundiced Assessment and Plan - Assessment and Plan (Free Text) Assessment: 32 yr old male with unknown past medical history except for alcoholism was brought to ED after having been found lying on ground littered in his own feces for unknown period of time, noted to be lethargic, moaning and groaning with skin tears on back and sides of hips. Work up included CT head and spine which were neg for any acute pathology. Further work up revealed elevated ammonia level (72), and bilirubin (10), BAL<10 and CPK 1082. 1. AMS most likely secondary to Hepatic encephalopathy patient has all stigmata of liver cirrhosis Will need to rule out SBP For Abdominal Paracentesis , will coordinate with IR, need to give pt Platelets and FFP prior to the procedure CXR showed no infiltrate. CT head with no acute pathology Follow up blood and urine cx Continue thiamine, Folic acid, MVI, IVF seizure/ withdrawal precautions Ativan PRN Hold Librium for now on zosyn Iv empirically for SBP Lactulose given since ammonia levels were elevated 2. Liver cirrhosis with ascites, coagulopathy , thrombocytopenia MELD score 28 supportive care for now start Propranolol 10 mg tid 2. ROHIT unclear if ATN vs HRS BUN/ Cr 44/1.6 continue IVF monitor closely 3. 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 Chronic alcoholism Withdrwal/ seizure precautions thiamine, Folic acid , MVI Ativan PRN 5.Rhabdomyolysis patient has signs of trauma right periorbital echymosis and left hip skin abrasions CT head and spine showed no acute pathology CPK elevated 1082 Continue IVF 6. Elevated lipase lipase 529 most likely secondary to alcoholism continue IVF , supportive care 7. Electrolyte abnormalities /hypokalemia/ hypomagnesemia/ hypophosphatemia replaced with KCl runs, mg Iv and Phosp 8. Multiple skin abrasions wound nurse consult 9. DVT prophylaxis hold anticoagulation since patient has INr 2.2 and thrombocytopenia
[2017-01-10 22:01] LABS: ALB/GLOB RATIO 0.4 (1.0-2.1); ALKALINE PHOSPHATASE 154 U/L (38-126); ALT/SGPT 62 U/L (21-72); AST/SGOT 164 U/L (17-59); BILIRUBIN,TOTAL 9.9 mg/dl (0.2-1.3); BLOOD UREA NITROGEN 30 mg/dl (9-20); CALCIUM 6.9 mg/dL (8.4-10.2); CARBON DIOXIDE 15 mmol/L (22-30); CHLORIDE 112 mmol/L (98-107); GFR AFRICAN-AMERICAN 45; GLUCOSE,RANDOM 133 mg/dL (75-110); MAGNESIUM 2.1 MG/DL (1.6-2.3); PHOSPHOROUS 2.3 mg/dl (2.5-4.5); POTASSIUM 4.2 MMOL/L (3.6-5.0); SODIUM 135 mmol/l (132-148); TOTAL PROTEIN 7.9 G/DL (6.3-8.2)
[2017-01-11] MEDS ORDERED: Pneumococcal 23-Valent Vaccine IM ONE (05:55)
[2017-01-11] MEDS ORDERED: Influenza Vaccine 18yr & older 0.5 ML/45 MCG SYR IM ONE (05:55)
[2017-01-11 06:29] LABS: CALCIUM 6.6 mg/dL (8.4-10.2); PHOSPHOROUS 2.1 mg/dl (2.5-4.5); POTASSIUM 3.9 MMOL/L (3.6-5.0)
[2017-01-11 06:33] LABS: BASO # 0.2 K/uL (0.0-0.2); BASO % 1.7 % (0.0-2.0); EOS # 0.1 K/uL (0.0-0.7); EOS % 0.8 % (0.0-4.0); HEMATOCRIT 23.7 % (35.0-51.0); LYMPH # 6.6 K/uL (1.0-4.3); LYMPH % 64.7 % (20.0-40.0); MEAN CELL VOLUME 90.7 fl (80.0-94.0); MEAN CORPUSCULAR HEMOGLOBIN 30.4 pg (27.0-31.0); MEAN CORPUSCULAR HGB CONC 33.5 g/dL (33.0-37.0); MEAN PLATELET VOLUME 8.3 fl (7.2-11.7); MONO # 0.7 K/uL (0.0-0.8); MONO % 6.6 % (0.0-10.0); NEUT # 2.7 K/uL (1.8-7.0); NEUT % 26.2 % (50.0-75.0); NRBC % 0.1 % (0.0-0.0); WHITE BLOOD COUNT 10.2 K/uL (4.8-10.8)
[2017-01-11] MEDS ORDERED: Albumin Human 25% (12.5 gm/50 ml) IV ONE (08:00)
[2017-01-11 08:35] LABS: BASO # 0.1 K/uL (0.0-0.2); EOS # 0.1 K/uL (0.0-0.7); EOS % 0.8 % (0.0-4.0); HEMATOCRIT 21.9 % (35.0-51.0); LYMPH # 5.6 K/uL (1.0-4.3); MEAN CELL VOLUME 90.3 fl (80.0-94.0); MEAN CORPUSCULAR HEMOGLOBIN 30.3 pg (27.0-31.0); MEAN CORPUSCULAR HGB CONC 33.5 g/dL (33.0-37.0); MEAN PLATELET VOLUME 7.8 fl (7.2-11.7); MONO # 0.6 K/uL (0.0-0.8); MONO % 6.6 % (0.0-10.0); NEUT # 2.8 K/uL (1.8-7.0); NEUT % 30.6 % (50.0-75.0); NRBC % 0.1 % (0.0-0.0); RED CELL DISTRIBUTION WIDTH 20.5 % (11.5-14.5); WHITE BLOOD COUNT 9.1 K/uL (4.8-10.8)
[2017-01-11] MEDS: Potassium & Sodium Phosphate PO SCH ×6 (08:43→21:31)
[2017-01-11 09:00] LABS: PARTIAL THROMBOPLASTIN TIME 42.5 Seconds (25.6-37.1)
--- NOTE | 2017-01-11 10:05 | RAD ---
PROCEDURE: CHEST RADIOGRAPH, 1 VIEW HISTORY: fever COMPARISON: 01/08/2017. FINDINGS: LUNGS: There are low lung volumes. No focal consolidation. PLEURA: No pneumothorax or pleural fluid seen. CARDIOVASCULAR: Normal. OSSEOUS STRUCTURES: No significant abnormalities. VISUALIZED UPPER ABDOMEN: Normal. OTHER FINDINGS: None. IMPRESSION: Low lung volumes may be related to poor inspiratory effort. No active pulmonary disease.
--- NOTE | 2017-01-11 11:24 | CP.PCM.PN ---
Subjective - Date & Time of Evaluation Date of Evaluation: 01/11/17 Time of Evaluation: 11:00 - Subjective Subjective: Temp 99.8 this am, low grade fever mild SOB bec of massive ascites Plan for Paracentesis today- pt was transfused FFP and Platelets IV Albumin given denies CP + abd pain Objective - Vital Signs/Intake and Output Vital Signs (last 24 hours): Temp Pulse Resp BP Pulse Ox 98.4 F 96 H 29 H 141/92 H 100 01/11/17 08:00 01/11/17 08:40 01/11/17 08:00 01/11/17 08:40 01/11/17 08:00 Intake and Output: 01/11/17 01/11/17 06:59 18:59 Intake Total 1877 Output Total 300 Balance 1577 - Medications Medications: Current Medications Piperacillin Sod/Tazobactam (Sod 2.25 gm/ Sodium Chloride) 100 mls @ 100 mls/ hr IVPB Q6 [facility] PRN Reason: Protocol Last Admin: 01/11/17 04:00 Dose: 100 mls/hr Pantoprazole Sodium (Protonix Inj) 40 mg IVP DAILY [facility] Last Admin: 01/11/17 08:39 Dose: 40 mg Potassium Phos/Sodium Phos (Neutra-Phos) 1 pkt PO QID [facility] Last Admin: 01/11/17 08:46 Dose: Not Given Propranolol HCl (Inderal) 10 mg PO TID [facility] Last Admin: 01/11/17 08:40 Dose: 10 mg Sodium Bicarbonate (Sodium Bicarbonate Tab) 650 mg PO Q8 [facility] Stop: 01/13/17 09:01 Last Admin: 01/11/17 09:45 Dose: 650 mg - Labs Labs: 01/11/17 08:00 01/11/17 05:55 PT 18.9 Seconds (9.8-13.1) H 01/11/17 08:00 INR 1.7 (0.9-1.2) H 01/11/17 08:00 APTT 42.5 Seconds (25.6-37.1) H 01/11/17 08:00 - Constitutional Appears: Older Than Stated Age, Chronically Ill - Head Exam Head Exam: NORMOCEPHALIC - Eye Exam Eye Exam: Periorbital swelling, Scleral icterus Pupil Exam: NORMAL ACCOMODATION Additional comments: periorbital hematoma - ENT Exam ENT Exam: Mucous Membranes Moist, Normal External Ear Exam - Neck Exam Neck Exam: Full ROM. absent: Meningismus - Respiratory Exam Respiratory Exam: Rales, Rhonchi - Cardiovascular Exam Cardiovascular Exam: Tachycardia, REGULAR RHYTHM, +S1, +S2 - GI/Abdominal Exam GI & Abdominal Exam: Distended, Tenderness, Normal Bowel Sounds Additional comments: ascites - Extremities Exam Extremities Exam: Full ROM, Normal Capillary Refill. absent: Calf Tenderness, Pedal Edema - Back Exam Back Exam: Full ROM. absent: CVA tenderness (L), CVA tenderness (R) - Neurological Exam Neurological Exam: Alert, Awake, CN II-XII Intact Additional comments: oriented to person and place moves all extremities - Psychiatric Exam Psychiatric exam: Flat Affect - Skin Skin Exam: Abrasion, Dry, Warm Additional comments: jaundiced Assessment and Plan - Assessment and Plan (Free Text) Assessment: 32 yr old male with unknown past medical history except for alcoholism was brought to ED after having been found lying on ground littered in his own feces for unknown period of time, noted to be lethargic, moaning and groaning with skin tears on back and sides of hips. Work up included CT head and spine which were neg for any acute pathology. Further work up revealed elevated ammonia level (72), and bilirubin (10), BAL<10 and CPK 1082. 1. AMS most likely secondary to Hepatic encephalopathy patient has all stigmata of liver cirrhosis For Abdominal Paracentesis , will coordinate with IR, need to give pt Platelets and FFP prior to the procedure CXR showed no infiltrate. CT head with no acute pathology Follow up blood and urine cx Continue thiamine, Folic acid, MVI, IVF seizure/ withdrawal precautions Ativan PRN Hold Librium for now on zosyn Iv empirically for SBP Lactulose given since ammonia levels were elevated 2. Liver cirrhosis with ascites, coagulopathy , thrombocytopenia MELD score 28 supportive care for now start Propranolol 10 mg tid GI consult 3. Fever prob sec to SBP cont IV Zosyn Paracentesis with ascitic fluid c/s, cell ct 4. ROHIT unclear if ATN vs HRS Crea=2 continue IVF monitor closely 5. 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 Chronic alcoholism Withdrawal/ seizure precautions thiamine, Folic acid , MVI Ativan PRN 7.Rhabdomyolysis patient has signs of trauma right periorbital echymosis and left hip skin abrasions CT head and spine showed no acute pathology CPK elevated Continue IVF 8. Elevated lipase lipase 529 most likely secondary to alcoholism continue IVF , supportive care 9. Electrolyte abnormalities /hypokalemia/ hypomagnesemia/ hypophosphatemia replaced with KCl runs, mg Iv and Phosp 8. Multiple skin abrasions wound nurse consult 9. DVT prophylaxis hold anticoagulation since patient has elevated INR and thrombocytopenia
[2017-01-11] MEDS: Potassium Ch 20mEq in D5-1/2NS 1,000 ML IV SCH (11:30)
--- NOTE | 2017-01-11 11:54 | CARD ---
APPROVED REPORT EKG Measurement Heart [id number] [place] 130P [id number] <Conclusion> Sinus tachycardia Right axis deviation Abnormal ECG
[2017-01-11] MEDS ORDERED: Lidocaine 1% Inj (20ml) ONE (13:04)
--- NOTE | 2017-01-11 13:33 | PCM.SURG1 ---
Surgeon's Initial Post Op Note - Surgeon's Notes Surgeon: Nicolas Anand MD Lawn Specialist: NONE Type of Anesthesia: Local Pre-Operative Diagnosis: Ascites Operative Findings: US showed a large amount of ascites Post-Operative Diagnosis: Ascites Operation Performed: US guided paracentesis Specimen/Specimens Removed: 7 liters of straw colored fluid Estimated Blood Loss: EBL {In ML}: 0 Blood Products Given: N/A Drains Used: No Drains Post-Op Condition: Fair Date of Surgery/Procedure: 01/11/17 Time of Surgery/Procedure: 15:45
[2017-01-11 14:06] LABS: BODY FLUID TYPE PERITONEAL/ASCITES
[2017-01-11 15:18] LABS: BF GROSS APPEARANCE CLEAR (CLEAR)
[2017-01-11 15:19] LABS: BODY FLUID TOTAL COUNT 100 (0-0)
--- NOTE | 2017-01-11 16:44 | CP.CCUPN ---
CCU Subjective - Physician Review Events Since Last Encounter (Free Text): 01/11/17 16:47 The patient was Seen/interviewed and examined by me at the bedside during ICU round, Medical records reviewed and Management issues were discussed and formulated with the house staff. Clinically improving, generalized jaundice noted. Some neurological improvement today, CT head with no acute pathology More awake, oriented today, Pt AAO x3. Alert, follows commands Comfortable, NAD Afebrile Last 24H I&O 5572/525 Less Abd distension S/p Paracentesis Also noted with right eye and middle forehead bruising. Evaluated by wound care today for Sacral area, b/l buttocks and both hip areas with redness, scratches and open bleeding areas Pt on 1:1 constant observation for safety. 01/10, Transfuse 1 unit Packed RBC 01/11, Pt received 1U FFP, 1U Plat and one dose of vitamin K x 1 No evidence of bleeding Underwent Paracentesis with 4.5 liters of straw colored fluid drained This morning labs revealed no Leucocytosis, normal K, Mg, Low Phos level, Stable renal function BUN/Cr 30/2.0 CCU Objective - Vital Signs / Intake & Output Vital Signs (Last 4 hours): Vital Signs Temp Pulse Resp BP Pulse Ox 01/11/17 16:24 78 118/72 01/11/17 16:00 98.2 F 79 24 119/69 100 01/11/17 14:25 72 16 124/76 100 01/11/17 13:33 98.1 F 75 16 146/74 100 Intake and Output (Last 8hrs): Intake & Output 01/11/17 01/11/17 01/11/17 06:59 14:59 22:59 Intake Total 1377 800 Output Total 200 7000 Balance 1177 -6200 Intake: IV 600 600 Intake, Piggyback 100 200 Oral 50 Blood Product 627 Output: Urine 200 Urethral (Hernandez) 200 Other 7000 Other: # Bowel Movements 1 2 - Physical Exam Head: Positive for: Abrasion, Other (temporal mm atrophy, bilateral orbital ecchymosis R worse than L.) Pupils: Positive for: PERRL Extroacular Muscles: Positive for: EOMI Conjunctiva: Positive for: Icteric Nose (External): Positive for: Atraumatic Nose (Internal): Positive for: No Active Bleeding Neck: Positive for: Normal Range of Motion. Negative for: Meningeal Signs, JVD Respiratory/Chest: Positive for: Clear to Auscultation Cardiovascular: Positive for: Regular Rate and Rhythm, Normal S1, S2, Tachycardic. Negative for: Murmurs, Rub Abdomen: Positive for: Distention, Normal Bowel Sounds. Negative for: Tenderness, Peritoneal Signs, Rebound, Guarding Lower Extremity: Positive for: Edema, NORMAL PULSES. Negative for: CALF TENDERNESS, Cyanosis, Tenderness Neurological: Positive for: GCS=15 Skin: Positive for: Warm, Laceration, Other (macerated and erythematous skin changes over both hips and mid sacral area.). Negative for: Rashes Lymphatic: Negative for: Cervical Adenopathy, Inguinal Adenopathy Psychiatric: Positive for: Lethargic - Medications Active Medications: Active Medications Generic Name Dose Route Start Last Admin Trade Name Freq PRN Reason Stop Dose Admin Piperacillin Sod/Tazobactam 100 mls @ 100 mls/hr 01/09/17 04:00 01/11/17 16: 26 Sod 2.25 gm/ Sodium Chloride IVPB 100 mls/hr Q6 [facility] Administration Protocol Pantoprazole Sodium 40 mg 01/09/17 09:00 01/11/17 08:39 Protonix Inj IVP 40 mg DAILY [facility] Administration Potassium Phos/Sodium Phos 1 pkt 01/09/17 13:00 01/11/17 16:24 Neutra-Phos PO 1 pkt QID [facility] Administration Propranolol HCl 10 mg 01/10/17 17:00 01/11/17 16:24 Inderal PO 10 mg TID [facility] Administration Sodium Bicarbonate 650 mg 01/11/17 09:00 01/11/17 16:25 Sodium Bicarbonate Tab PO 01/13/17 09:01 650 mg Q8 [facility] Administration - Patient Studies Lab Studies: Microbiology Studies 01/08/17 08:15 Blood Culture - Preliminary Blood NO GROWTH AFTER 48 HOURS 01/08/17 07:35 Blood Culture - Preliminary Blood NO GROWTH AFTER 48 HOURS 01/08/17 09:50 MRSA Culture (Admit) - Final Naris MRSA NOT DETECTED Lab Studies 01/11/17 01/11/17 01/11/17 Range/Units 14:00 13:30 08:00 WBC 9.1 (4.8-10.8) K/uL RBC 2.43 L (4.40-5.90) Mil/uL Hgb 7.4 L (12.0-18.0) g/dL Hct 21.9 L (35.0-51.0) % MCV 90.3 (80.0-94.0) fl MCH 30.3 (27.0-31.0) pg MCHC 33.5 (33.0-37.0) g/dL RDW 20.5 H (11.5-14.5) % Plt Count 82 L D (130-400) K/uL MPV 7.8 (7.2-11.7) fl Neut % (Auto) 30.6 L (50.0-75.0) % Lymph % (Auto) 61.0 H (20.0-40.0) % [place] % (Auto) 6.6 (0.0-10.0) % Eos % (Auto) 0.8 (0.0-4.0) % Baso % (Auto) 1.0 (0.0-2.0) % Neut # 2.8 (1.8-7.0) K/uL Lymph # 5.6 H (1.0-4.3) K/uL [place] # 0.6 (0.0-0.8) K/uL Eos # 0.1 (0.0-0.7) K/uL Baso # 0.1 (0.0-0.2) K/uL PT (9.8-13.1) Seconds INR (0.9-1.2) APTT (25.6-37.1) Seconds Sodium (132-148) mmol/l Potassium (3.6-5.0) MMOL/L Chloride (98-107) mmol/L Carbon Dioxide (22-30) mmol/L Anion Gap (10-20) BUN (9-20) mg/dl Creatinine (0.8-1.5) mg/dL Est GFR ( Amer) Est GFR (Non-Af Amer) Random Glucose (75-110) mg/dL Calcium (8.4-10.2) mg/dL Phosphorus (2.5-4.5) mg/dl Magnesium (1.6-2.3) MG/DL Total Bilirubin (0.2-1.3) mg/dl AST (17-59) U/L ALT (21-72) U/L Alkaline Phosphatase (38-126) U/L Troponin I (0.00-0.120) ng/mL Total Protein (6.3-8.2) G/DL Albumin (3.5-5.0) g/dL Globulin (2.2-3.9) gm/dL Albumin/Globulin Ratio (1.0-2.1) Fluid Source Peritoneal/ascites Fluid Appearance Clear (CLEAR) Fluid WBC 56.0 (0.0-300.0) /mm3 Fluid RBC 244.0 H (0.0-0.0) /mm3 Fluid Tot Cell Count 100 H (0-0) Fluid Neutrophils 38.0 H (0-0) % Fluid Lymphocytes 52.0 H (0-0) % Fld Monocyte/Macrophag 11 H (0-0) % Fluid Glucose 114 (NONE ESTABLISHED) mg/dL Fluid Comment Yellow C. difficile Ag & Toxin Negative (NEGATIVE) Blood Type Antibody Screen Crossmatch BBK History Checked 01/11/17 01/11/17 01/11/17 Range/Units 08:00 05:55 05:55 WBC (4.8-10.8) K/uL RBC (4.40-5.90) Mil/uL Hgb (12.0-18.0) g/dL Hct (35.0-51.0) % MCV (80.0-94.0) fl MCH (27.0-31.0) pg MCHC (33.0-37.0) g/dL RDW (11.5-14.5) % Plt Count (130-400) K/uL MPV (7.2-11.7) fl Neut % (Auto) (50.0-75.0) % Lymph % (Auto) (20.0-40.0) % [place] % (Auto) (0.0-10.0) % Eos % (Auto) (0.0-4.0) % Baso % (Auto) (0.0-2.0) % Neut # (1.8-7.0) K/uL Lymph # (1.0-4.3) K/uL [place] # (0.0-0.8) K/uL Eos # (0.0-0.7) K/uL Baso # (0.0-0.2) K/uL PT 18.9 H 22.7 H (9.8-13.1) Seconds INR 1.7 H 2.0 H (0.9-1.2) APTT 42.5 H (25.6-37.1) Seconds Sodium 136 (132-148) mmol/l Potassium 3.9 (3.6-5.0) MMOL/L Chloride 114 H (98-107) mmol/L Carbon Dioxide 14 L (22-30) mmol/L Anion Gap 12 (10-20) BUN 30 H (9-20) mg/dl Creatinine 2.0 H (0.8-1.5) mg/dL Est GFR ( Amer) 45 Est GFR (Non-Af Amer) 37 Random Glucose 118 H (75-110) mg/dL Calcium 6.6 L (8.4-10.2) mg/dL Phosphorus 2.1 L (2.5-4.5) mg/dl Magnesium 2.0 (1.6-2.3) MG/DL Total Bilirubin (0.2-1.3) mg/dl AST (17-59) U/L ALT (21-72) U/L Alkaline Phosphatase (38-126) U/L Troponin I (0.00-0.120) ng/mL Total Protein (6.3-8.2) G/DL Albumin (3.5-5.0) g/dL Globulin (2.2-3.9) gm/dL Albumin/Globulin Ratio (1.0-2.1) Fluid Source Fluid Appearance (CLEAR) Fluid WBC (0.0-300.0) /mm3 Fluid RBC (0.0-0.0) /mm3 Fluid Tot Cell Count (0-0) Fluid Neutrophils (0-0) % Fluid Lymphocytes (0-0) % Fld Monocyte/Macrophag (0-0) % Fluid Glucose (NONE ESTABLISHED) mg/dL Fluid Comment C. difficile Ag & Toxin (NEGATIVE) Blood Type Antibody Screen Crossmatch BBK History Checked 01/11/17 01/10/17 01/10/17 Range/Units 05:55 21:30 13:30 WBC 10.2 (4.8-10.8) K/uL RBC 2.61 L (4.40-5.90) Mil/uL Hgb 7.9 L (12.0-18.0) g/dL Hct 23.7 L (35.0-51.0) % MCV 90.7 (80.0-94.0) fl MCH 30.4 (27.0-31.0) pg MCHC 33.5 (33.0-37.0) g/dL RDW 20.0 H (11.5-14.5) % Plt Count 44 L (130-400) K/uL MPV 8.3 (7.2-11.7) fl Neut % (Auto) 26.2 L (50.0-75.0) % Lymph % (Auto) 64.7 H (20.0-40.0) % [place] % (Auto) 6.6 (0.0-10.0) % Eos % (Auto) 0.8 (0.0-4.0) % Baso % (Auto) 1.7 (0.0-2.0) % Neut # 2.7 (1.8-7.0) K/uL Lymph # 6.6 H (1.0-4.3) K/uL [place] # 0.7 (0.0-0.8) K/uL Eos # 0.1 (0.0-0.7) K/uL Baso # 0.2 (0.0-0.2) K/uL PT (9.8-13.1) Seconds INR (0.9-1.2) APTT (25.6-37.1) Seconds Sodium 135 (132-148) mmol/l Potassium 4.2 (3.6-5.0) MMOL/L Chloride 112 H (98-107) mmol/L Carbon Dioxide 15 L (22-30) mmol/L Anion Gap 12 (10-20) BUN 30 H (9-20) mg/dl Creatinine 2.0 H (0.8-1.5) mg/dL Est GFR ( Amer) 45 Est GFR (Non-Af Amer) 37 Random Glucose 133 H (75-110) mg/dL Calcium 6.9 L (8.4-10.2) mg/dL Phosphorus 2.3 L (2.5-4.5) mg/dl Magnesium 2.1 (1.6-2.3) MG/DL Total Bilirubin 9.9 H (0.2-1.3) mg/dl AST 164 H (17-59) U/L ALT 62 (21-72) U/L Alkaline Phosphatase 154 H (38-126) U/L Troponin I < 0.0120 (0.00-0.120) ng/mL Total Protein 7.9 (6.3-8.2) G/DL Albumin 2.3 L (3.5-5.0) g/dL Globulin 5.6 H (2.2-3.9) gm/dL Albumin/Globulin Ratio 0.4 L (1.0-2.1) Fluid Source Fluid Appearance (CLEAR) Fluid WBC (0.0-300.0) /mm3 Fluid RBC (0.0-0.0) /mm3 Fluid Tot Cell Count (0-0) Fluid Neutrophils (0-0) % Fluid Lymphocytes (0-0) % Fld Monocyte/Macrophag (0-0) % Fluid Glucose (NONE ESTABLISHED) mg/dL Fluid Comment C. difficile Ag & Toxin (NEGATIVE) Blood Type O POSITIVE Antibody Screen Negative Crossmatch See Detail BBK History Checked Patient has bt Laboratory Results - last 24 hr 01/10/17 01/10/17 01/11/17 13:30 21:30 05:55 WBC 10.2 RBC 2.61 L Hgb 7.9 L Hct 23.7 L MCV 90.7 MCH 30.4 MCHC 33.5 RDW 20.0 H Plt Count 44 L MPV 8.3 Neut % (Auto) 26.2 L Lymph % (Auto) 64.7 H [place] % (Auto) 6.6 Eos % (Auto) 0.8 Baso % (Auto) 1.7 Neut # 2.7 Lymph # 6.6 H [place] # 0.7 Eos # 0.1 Baso # 0.2 PT INR APTT Sodium 135 Potassium 4.2 Chloride 112 H Carbon Dioxide 15 L Anion Gap 12 BUN 30 H Creatinine 2.0 H Est GFR ( Amer) 45 Est GFR (Non-Af Amer) 37 Random Glucose 133 H Calcium 6.9 L Phosphorus 2.3 L Magnesium 2.1 Total Bilirubin 9.9 H AST 164 H ALT 62 Alkaline Phosphatase 154 H Troponin I < 0.0120 Total Protein 7.9 Albumin 2.3 L Globulin 5.6 H Albumin/Globulin Ratio 0.4 L Fluid Source Fluid Appearance Fluid WBC Fluid RBC Fluid Tot Cell Count Fluid Neutrophils Fluid Lymphocytes Fld Monocyte/Macrophag Fluid Glucose Fluid Comment C. difficile Ag & Toxin Blood Type O POSITIVE Antibody Screen Negative Crossmatch See Detail BBK History Checked Patient has bt 01/11/17 01/11/17 01/11/17 05:55 05:55 08:00 WBC RBC Hgb Hct MCV MCH MCHC RDW Plt Count MPV Neut % (Auto) Lymph % (Auto) [place] % (Auto) Eos % (Auto) Baso % (Auto) Neut # Lymph # [place] # Eos # Baso # PT 22.7 H 18.9 H INR 2.0 H 1.7 H APTT 42.5 H Sodium 136 Potassium 3.9 Chloride 114 H Carbon Dioxide 14 L Anion Gap 12 BUN 30 H Creatinine 2.0 H Est GFR ( Amer) 45 Est GFR (Non-Af Amer) 37 Random Glucose 118 H Calcium 6.6 L Phosphorus 2.1 L Magnesium 2.0 Total Bilirubin AST ALT Alkaline Phosphatase Troponin I Total Protein Albumin Globulin Albumin/Globulin Ratio Fluid Source Fluid Appearance Fluid WBC Fluid RBC Fluid Tot Cell Count Fluid Neutrophils Fluid Lymphocytes Fld Monocyte/Macrophag Fluid Glucose Fluid Comment C. difficile Ag & Toxin Blood Type Antibody Screen Crossmatch BBK History Checked 01/11/17 01/11/17 01/11/17 08:00 13:30 14:00 WBC 9.1 RBC 2.43 L Hgb 7.4 L Hct 21.9 L MCV 90.3 MCH 30.3 MCHC 33.5 RDW 20.5 H Plt Count 82 L D MPV 7.8 Neut % (Auto) 30.6 L Lymph % (Auto) 61.0 H [place] % (Auto) 6.6 Eos % (Auto) 0.8 Baso % (Auto) 1.0 Neut # 2.8 Lymph # 5.6 H [place] # 0.6 Eos # 0.1 Baso # 0.1 PT INR APTT Sodium Potassium Chloride Carbon Dioxide Anion Gap BUN Creatinine Est GFR ( Amer) Est GFR (Non-Af Amer) Random Glucose Calcium Phosphorus Magnesium Total Bilirubin AST ALT Alkaline Phosphatase Troponin I Total Protein Albumin Globulin Albumin/Globulin Ratio Fluid Source Peritoneal/ascites Fluid Appearance Clear Fluid WBC 56.0 Fluid RBC 244.0 H Fluid Tot Cell Count 100 H Fluid Neutrophils 38.0 H Fluid Lymphocytes 52.0 H Fld Monocyte/Macrophag 11 H Fluid Glucose 114 Fluid Comment Yellow C. difficile Ag & Toxin Negative Blood Type Antibody Screen Crossmatch BBK History Checked EKG/Cardiology Studies: Cardiology / EKG Studies 01/10/17 21:14 EKG [ELECTROCARDIOGRAM] Stat Comment: Mode Of Transportation: PORTABLE Reason For Exam: evelvated HR chest pain Fingerstick Blood Sugar Results: 143 Critical Care Progress Note - Nutrition Nutrition: Nutrition Category Date Time Status Heart Healthy Diet [DIET] Diets 01/09/17 Lunch Active Assessment/Plan (1) Hepatic encephalopathy Current Visit: Yes Status: Acute (2) Liver cirrhosis Current Visit: Yes Status: Acute (3) ROHIT (acute kidney injury) Current Visit: Yes Status: Acute (4) Ascites Current Visit: Yes Status: Acute (5) Electrolyte abnormality Current Visit: Yes Status: Acute (6) Coagulopathy Current Visit: Yes Status: Acute (7) Thrombocytopenia Current Visit: Yes Status: Acute (8) Anemia Current Visit: Yes Status: Acute - Assessment and Plan (Free Text) Assessment: Continue with ICU care for hemodynamic, neurological and Respiratory monitoring Underwent Paracentesis today with 4.5 liters of straw colored fluid drained 01/10, Transfuse 1 unit Packed RBC 01/11, Pt received 1U FFP, 1U Plat and one dose of vitamin K x 1 Frequent Neurochecks, Aspiration and seizure precautions Lactulose. IVF hydration with D5 0.45NS with 20 meq KCL/liter Thiamine / Folate PO Vit K Continue on IV zosyn empirically for SBP CIWA protocol PRN Ativan Monitor urine output Replete K, Mg, Phos
[2017-01-12] MEDS ORDERED: Potassium Ch 20mEq in D5-1/2NS 1,000 ML IV SCH (02:30)
[2017-01-12 05:34] LABS: BASO # 0.1 K/uL (0.0-0.2); BASO % 1.5 % (0.0-2.0); EOS # 0.2 K/uL (0.0-0.7); EOS % 2.7 % (0.0-4.0); HEMATOCRIT 20.4 % (35.0-51.0); LYMPH # 1.1 K/uL (1.0-4.3); MEAN CELL VOLUME 92.1 fl (80.0-94.0); MEAN CORPUSCULAR HEMOGLOBIN 30.9 pg (27.0-31.0); MEAN CORPUSCULAR HGB CONC 33.6 g/dL (33.0-37.0); MEAN PLATELET VOLUME 8.3 fl (7.2-11.7); MONO # 1.2 K/uL (0.0-0.8); MONO % 18.4 % (0.0-10.0); NEUT # 4.1 K/uL (1.8-7.0); NEUT % 61.4 % (50.0-75.0); NRBC % 0.1 % (0.0-0.0); RED CELL DISTRIBUTION WIDTH 20.7 % (11.5-14.5); WHITE BLOOD COUNT 6.6 K/uL (4.8-10.8)
[2017-01-12 05:48] LABS: POTASSIUM 3.8 MMOL/L (3.6-5.0)
[2017-01-12 06:20] LABS: CALCIUM 7.1 mg/dL (8.4-10.2)
[2017-01-12] MEDS: Potassium & Sodium Phosphate PO SCH ×4 (08:28→21:15)
--- NOTE | 2017-01-12 10:01 | CP.PCM.PN ---
Subjective - Date & Time of Evaluation Date of Evaluation: 01/12/17 Time of Evaluation: 09:30 - Subjective Subjective: Afebrile today noted episode of unresponsiveness however did not notice any seizure like activity denies CP feels better still with abd discomfort but better denies epigastric pain tolerating PO diet Objective - Vital Signs/Intake and Output Vital Signs (last 24 hours): Temp Pulse Resp BP Pulse Ox 99.3 F 85 20 132/63 99 01/12/17 07:56 01/12/17 08:27 01/12/17 07:56 01/12/17 08:27 01/12/17 07:56 Intake and Output: 01/12/17 01/12/17 06:59 18:59 Intake Total 1200 Output Total 1 Balance 1199 - Medications Medications: Current Medications Piperacillin Sod/Tazobactam (Sod 2.25 gm/ Sodium Chloride) 100 mls @ 100 mls/ hr IVPB Q6 [facility] PRN Reason: Protocol Last Admin: 01/12/17 03:26 Dose: 100 mls/hr Potassium Chloride/Dextrose/Sod Cl (Potassium Chl 20 Meq In D5-1/2ns) 1,000 mls @ 100 mls/hr IV .Q10H [facility] Stop: 01/13/17 02:26 Last Admin: 01/12/17 02:36 Dose: 100 mls/hr Pantoprazole Sodium (Protonix Inj) 40 mg IVP DAILY [facility] Last Admin: 01/12/17 08:44 Dose: 40 mg Potassium Phos/Sodium Phos (Neutra-Phos) 1 pkt PO QID [facility] Last Admin: 01/12/17 08:28 Dose: 1 pkt Propranolol HCl (Inderal) 10 mg PO TID [facility] Last Admin: 01/12/17 08:27 Dose: 10 mg Sodium Bicarbonate (Sodium Bicarbonate Tab) 650 mg PO Q8 [facility] Stop: 01/13/17 09:01 Last Admin: 01/12/17 08:28 Dose: 650 mg - Labs Labs: 01/12/17 04:20 01/12/17 04:20 PT 18.9 Seconds (9.8-13.1) H 01/11/17 08:00 INR 1.7 (0.9-1.2) H 01/11/17 08:00 APTT 42.5 Seconds (25.6-37.1) H 01/11/17 08:00 - Constitutional Appears: Older Than Stated Age, Chronically Ill - Head Exam Head Exam: NORMOCEPHALIC - Eye Exam Eye Exam: Periorbital swelling, Scleral icterus Pupil Exam: NORMAL ACCOMODATION Additional comments: periorbital hematoma - ENT Exam ENT Exam: Mucous Membranes Moist, Normal External Ear Exam - Neck Exam Neck Exam: Full ROM. absent: Meningismus - Respiratory Exam Respiratory Exam: Rales, Rhonchi - Cardiovascular Exam Cardiovascular Exam: Tachycardia, REGULAR RHYTHM, +S1, +S2 - GI/Abdominal Exam GI & Abdominal Exam: Distended, Tenderness, Normal Bowel Sounds Additional comments: ascites - Extremities Exam Extremities Exam: Full ROM, Normal Capillary Refill. absent: Calf Tenderness, Pedal Edema - Back Exam Back Exam: Full ROM. absent: CVA tenderness (L), CVA tenderness (R) - Neurological Exam Neurological Exam: Alert, Awake, CN II-XII Intact Additional comments: oriented to person and place moves all extremities - Psychiatric Exam Psychiatric exam: Flat Affect - Skin Skin Exam: Abrasion, Dry, Warm Additional comments: jaundiced Assessment and Plan - Assessment and Plan (Free Text) Assessment: 32 yr old male with unknown past medical history except for alcoholism was brought to ED after having been found lying on ground littered in his own feces for unknown period of time, noted to be lethargic, moaning and groaning with skin tears on back and sides of hips. Work up included CT head and spine which were neg for any acute pathology. Further work up revealed elevated ammonia level (72), and bilirubin (10), BAL<10 and CPK 1082. 1. AMS most likely secondary to Hepatic encephalopathy patient has all stigmata of liver cirrhosis CXR showed no infiltrate. CT head with no acute pathology blood and urine cx : negative thiamine, Folic acid, MVI, IVF seizure/ withdrawal precautions Ativan PRN Hold Librium for now on zosyn Iv empirically for SBP Lactulose given since ammonia levels were elevated 2. Liver cirrhosis with ascites, coagulopathy , thrombocytopenia MELD score 28 supportive care for now start Propranolol 10 mg tid GI consult: Dr Pimentel 3. Fever prob sec to SBP cont IV Zosyn Paracentesis done , 4.5 liters of ascitic fluid removed 25% Albumin given prior to the procedure ascitic fluid c/s, cell ct 4. ROHIT unclear if ATN vs HRS Crea=2 continue IVF monitor closely Sonogram : medical renal dis, no hydronephrosis Nephrology consult : Dr Hernandez 5. 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 Chronic alcoholism Withdrawal/ seizure precautions off Banana bag started thiamine, Folic acid , MVI Ativan PRN 7.Rhabdomyolysis patient has signs of trauma right periorbital echymosis and left hip skin abrasions CT head and spine showed no acute pathology CPK elevated Continue IVF 8. Elevated lipase most likely secondary to alcoholism Pt has sl abd discomfort due to ascites but no epig pain, tolerating PO diet continue IVF , supportive care 9. Electrolyte abnormalities /hypokalemia/ hypomagnesemia/ hypophosphatemia replaced with KCl runs, mg Iv and Phosp 8. Multiple skin abrasions wound nurse consult 10. Episode of Unresponsive ? related to Hepatic Encephalopathy r/o Seizure EEG Neurochecks CT of head : neg DVT prophylaxis hold anticoagulation since patient has elevated INR and thrombocytopenia
--- NOTE | 2017-01-12 11:15 | US ---
HISTORY: r/o Pancreatitis, assess Kidneys COMPARISON: CT scan of the abdomen and pelvis from 01/08/2017. TECHNIQUE: Sonographic evaluation of the abdomen. FINDINGS: LIVER: Measures 18.9 cm. There is mild diffuse increased echogenicity of the liver parenchyma and nodular contour. No mass. No intrahepatic bile duct dilatation. There is abnormal hepatofugal flow in the portal vein. GALLBLADDER: There are no gallstones, wall thickening or pericholecystic fluid. The sonographic Lyons's sign is negative. There is echogenic sludge within the gallbladder. COMMON BILE DUCT: Measures 4.0 mm. No stones. No dilatation. PANCREAS: The pancreas is not visualized due to excessive bowel gas. RIGHT KIDNEY: Measures 12.4cm. There is mild diffuse increased echogenicity with poor corticomedullary differentiation. No calculus, mass, or hydronephrosis. There is mild fullness in the right renal pelvis. LEFT KIDNEY: Measures 12.1cm. There is mild diffuse increased echogenicity with poor corticomedullary differentiation. No calculus, mass, or hydronephrosis. SPLEEN: There is borderline splenomegaly. No mass. AORTA: No aneurysmal dilatation. IVC: Unremarkable. OTHER FINDINGS: None. IMPRESSION: 1. Cirrhosis of liver and mild hepatosplenomegaly. Reversal of portal venous flow. 2. The pancreas is obscured by bowel gas. 3. Diffuse increased echogenicity in the kidneys with 4 cortico medullary differentiation suggestive of medical renal disease.
--- NOTE | 2017-01-12 11:24 | CP.CCUPN ---
<Mitchel Gan - Last Filed: 01/12/17 11:08> CCU Subjective - Physician Review Subjective (Free Text): 01/12/17 11:08 Patient seen and examined at bedside. Patient NAD but complains of epigastric abdominal pain and nausea. Patient had 1-2 minute episode of lethargy with no response to sternal rub but regained normal consciousness after accucheck. Patient AAOx2, is cooperative, and follows commands. Patient is s/p paracentesis with 7L removed but remains distended this morning. Patient had 6 bowel movements overnight while on lactulose. Patient denies headache, dizziness, chest pain, or SOB. Critical Care Time Spent (in minutes): 35 CCU Objective - Vital Signs / Intake & Output Vital Signs (Last 4 hours): Vital Signs Temp Pulse Resp BP Pulse Ox 01/12/17 08:27 85 132/63 01/12/17 07:56 99.3 F 71 20 111/80 99 Intake and Output (Last 8hrs): Intake & Output 01/11/17 01/12/17 01/12/17 22:59 06:59 14:59 Intake Total 300 900 Output Total 250 1 Balance 50 899 Intake: IV 300 800 Oral 100 Output: Urine 250 Urethral (Flores) 250 Urine/Stool Mix 1 Other: # Voids Urine, Voided 1 # Bowel Movements 1 1 - Physical Exam Head: Positive for: Abrasion, Other (temporal mm atrophy, bilateral orbital ecchymosis R worse than L.) Pupils: Positive for: PERRL Extroacular Muscles: Positive for: EOMI Conjunctiva: Positive for: Icteric Nose (External): Positive for: Atraumatic Nose (Internal): Positive for: No Active Bleeding Neck: Positive for: Normal Range of Motion. Negative for: Meningeal Signs, JVD Respiratory/Chest: Positive for: Clear to Auscultation Cardiovascular: Positive for: Regular Rate and Rhythm, Normal S1, S2, Tachycardic. Negative for: Murmurs, Rub Abdomen: Positive for: Distention, Normal Bowel Sounds. Negative for: Tenderness, Peritoneal Signs, Rebound, Guarding Lower Extremity: Positive for: Edema, NORMAL PULSES. Negative for: CALF TENDERNESS, Cyanosis, Tenderness Neurological: Positive for: GCS=15 Skin: Positive for: Warm, Laceration, Other (macerated and erythematous skin changes over both hips and mid sacral area.). Negative for: Rashes Lymphatic: Negative for: Cervical Adenopathy, Inguinal Adenopathy Psychiatric: Positive for: Alert, Lethargic - Medications Active Medications: Active Medications Generic Name Dose Route Start Last Admin Trade Name Freq PRN Reason Stop Dose Admin Folic Acid 1 mg 01/12/17 10:15 Folic Acid PO DAILY MEG Piperacillin Sod/Tazobactam 100 mls @ 100 mls/hr 01/09/17 04:00 01/12/17 03: 26 Sod 2.25 gm/ Sodium Chloride IVPB 100 mls/hr Q6 MEG Administration Protocol Potassium Chloride/Dextrose/Sod Cl 1,000 mls @ 100 mls/hr 01/12/17 02:30 02:36 Potassium Chl 20 Meq In D5-1/2ns IV 01/13/17 02:26 100 mls/hr .Q10H MEG Administration Pantoprazole Sodium 40 mg 01/09/17 09:00 01/12/17 08:44 Protonix Inj IVP 40 mg DAILY MEG Administration Potassium Phos/Sodium Phos 1 pkt 01/09/17 13:00 01/12/17 08:28 Neutra-Phos PO 1 pkt QID MEG Administration Propranolol HCl 10 mg 01/10/17 17:00 01/12/17 08:27 Inderal PO 10 mg TID MEG Administration Sodium Bicarbonate 650 mg 01/11/17 09:00 01/12/17 08:28 Sodium Bicarbonate Tab PO 01/13/17 09:01 650 mg Q8 MEG Administration Thiamine HCl 100 mg 01/12/17 10:15 Vitamin B1 Tab PO DAILY MEG - Patient Studies Lab Studies: Microbiology Studies 01/11/17 13:30 Gram Stain - Final Ascitic Fluid Body Fluid Culture - Preliminary NO GROWTH AFTER 24 HOURS 01/10/17 23:00 Urine Culture - Final Urine,Catheterized No Growth (<1,000 CFU/ML) 01/10/17 21:30 Blood Culture - Preliminary Blood NO GROWTH AFTER 24 HOURS 01/10/17 21:00 Blood Culture - Preliminary Blood NO GROWTH AFTER 24 HOURS 01/08/17 08:15 Blood Culture - Preliminary Blood NO GROWTH AFTER 3 DAYS 01/08/17 07:35 Blood Culture - Preliminary Blood NO GROWTH AFTER 3 DAYS Lab Studies 01/12/17 01/12/1701/12/17 Range/Units 10:06 08:34 04:20 WBC (4.8-10.8) K/uL RBC (4.40-5.90) Mil/uL Hgb (12.0-18.0) g/dL Hct (35.0-51.0) % MCV (80.0-94.0) fl MCH (27.0-31.0) pg MCHC (33.0-37.0) g/dL RDW (11.5-14.5) % Plt Count (130-400) K/uL MPV (7.2-11.7) fl Neut % (Auto) (50.0-75.0) % Lymph % (Auto) (20.0-40.0) % [place] % (Auto) (0.0-10.0) % Eos % (Auto) (0.0-4.0) % Baso % (Auto) (0.0-2.0) % Neut # (1.8-7.0) K/uL Lymph # (1.0-4.3) K/uL [place] # (0.0-0.8) K/uL Eos # (0.0-0.7) K/uL Baso # (0.0-0.2) K/uL Sodium 137 (132-148) mmol/l Potassium 3.8 (3.6-5.0) MMOL/L Chloride 113 H (98-107) mmol/L Carbon Dioxide 15 L (22-30) mmol/L Anion Gap 13 (10-20) BUN 30 H (9-20) mg/dl Creatinine 2.3 H (0.8-1.5) mg/dL Est GFR ( Amer) 38 Est GFR (Non-Af Amer) 32 POC Glucose (mg/dL) 147 H (65-110) mg/dL Random Glucose 103 (75-110) mg/dL Calcium 7.1 L (8.4-10.2) mg/dL Lipase 2877 H Cancelled Fluid Source Fluid Appearance (CLEAR) Fluid WBC (0.0-300.0) /mm3 Fluid RBC (0.0-0.0) /mm3 Fluid Tot Cell Count (0-0) Fluid Neutrophils (0-0) % Fluid Lymphocytes (0-0) % Fld Monocyte/Macrophag (0-0) % Fluid Glucose (NONE ESTABLISHED) mg/dL Fluid Comment C. difficile Ag & Toxin (NEGATIVE) Blood Type Antibody Screen Crossmatch BBK History Checked 01/12/17 01/11/17 01/11/17 Range/Units 04:20 14:00 13:30 WBC 6.6 (4.8-10.8) K/uL RBC 2.22 L (4.40-5.90) Mil/uL Hgb 6.8 L (12.0-18.0) g/dL Hct 20.4 L (35.0-51.0) % MCV 92.1 (80.0-94.0) fl MCH 30.9 (27.0-31.0) pg MCHC 33.6 (33.0-37.0) g/dL RDW 20.7 H (11.5-14.5) % Plt Count 69 L (130-400) K/uL MPV 8.3 (7.2-11.7) fl Neut % (Auto) 61.4 (50.0-75.0) % Lymph % (Auto) 16.0 L (20.0-40.0) % [place] % (Auto) 18.4 H (0.0-10.0) % Eos % (Auto) 2.7 (0.0-4.0) % Baso % (Auto) 1.5 (0.0-2.0) % Neut # 4.1 (1.8-7.0) K/uL Lymph # 1.1 (1.0-4.3) K/uL [place] # 1.2 H (0.0-0.8) K/uL Eos # 0.2 (0.0-0.7) K/uL Baso # 0.1 (0.0-0.2) K/uL Sodium (132-148) mmol/l Potassium (3.6-5.0) MMOL/L Chloride (98-107) mmol/L Carbon Dioxide (22-30) mmol/L Anion Gap (10-20) BUN (9-20) mg/dl Creatinine (0.8-1.5) mg/dL Est GFR ( Amer) Est GFR (Non-Af Amer) POC Glucose (mg/dL) (65-110) mg/dL Random Glucose (75-110) mg/dL Calcium (8.4-10.2) mg/dL Lipase Fluid Source Peritoneal/ascites Fluid Appearance Clear (CLEAR) Fluid WBC 56.0 (0.0-300.0) /mm3 Fluid RBC 244.0 H (0.0-0.0) /mm3 Fluid Tot Cell Count 100 H (0-0) Fluid Neutrophils 38.0 H (0-0) % Fluid Lymphocytes 52.0 H (0-0) % Fld Monocyte/Macrophag 11 H (0-0) % Fluid Glucose 114 (NONE ESTABLISHED) mg/dL Fluid Comment Yellow C. difficile Ag & Toxin Negative (NEGATIVE) Blood Type Antibody Screen Crossmatch BBK History Checked 01/10/17 01/08/17 Range/Units 13:30 19:43 WBC (4.8-10.8) K/uL RBC (4.40-5.90) Mil/uL Hgb (12.0-18.0) g/dL Hct (35.0-51.0) % MCV (80.0-94.0) fl MCH (27.0-31.0) pg MCHC (33.0-37.0) g/dL RDW (11.5-14.5) % Plt Count (130-400) K/uL MPV (7.2-11.7) fl Neut % (Auto) (50.0-75.0) % Lymph % (Auto) (20.0-40.0) % [place] % (Auto) (0.0-10.0) % Eos % (Auto) (0.0-4.0) % Baso % (Auto) (0.0-2.0) % Neut # (1.8-7.0) K/uL Lymph # (1.0-4.3) K/uL [place] # (0.0-0.8) K/uL Eos # (0.0-0.7) K/uL Baso # (0.0-0.2) K/uL Sodium (132-148) mmol/l Potassium (3.6-5.0) MMOL/L Chloride (98-107) mmol/L Carbon Dioxide (22-30) mmol/L Anion Gap (10-20) BUN (9-20) mg/dl Creatinine (0.8-1.5) mg/dL Est GFR ( Amer) Est GFR (Non-Af Amer) POC Glucose (mg/dL) (65-110) mg/dL Random Glucose (75-110) mg/dL Calcium (8.4-10.2) mg/dL Lipase Fluid Source Fluid Appearance (CLEAR) Fluid WBC (0.0-300.0) /mm3 Fluid RBC (0.0-0.0) /mm3 Fluid Tot Cell Count (0-0) Fluid Neutrophils (0-0) % Fluid Lymphocytes (0-0) % Fld Monocyte/Macrophag (0-0) % Fluid Glucose (NONE ESTABLISHED) mg/dL Fluid Comment C. difficile Ag & Toxin (NEGATIVE) Blood Type O POSITIVE O POSITIVE Antibody Screen Negative Negative Crossmatch See Detail See Detail BBK History Checked Patient has bt No verified bt Laboratory Results - last 24 hr 01/08/17 01/10/17 01/11/17 19:43 13:30 13:30 WBC RBC Hgb Hct MCV MCH MCHC RDW Plt Count MPV Neut % (Auto) Lymph % (Auto) [place] % (Auto) Eos % (Auto) Baso % (Auto) Neut # Lymph # [place] # Eos # Baso # Sodium Potassium Chloride Carbon Dioxide Anion Gap BUN Creatinine Est GFR ( Amer) Est GFR (Non-Af Amer) POC Glucose (mg/dL) Random Glucose Calcium Lipase Fluid Source Peritoneal/ascites Fluid Appearance Clear Fluid WBC 56.0 Fluid RBC 244.0 H Fluid Tot Cell Count 100 H Fluid Neutrophils 38.0 H Fluid Lymphocytes 52.0 H Fld Monocyte/Macrophag 11 H Fluid Glucose 114 Fluid Comment Yellow C. difficile Ag & Toxin Blood Type O POSITIVE O POSITIVE Antibody Screen Negative Negative Crossmatch See Detail See Detail BBK History Checked No verified bt Patient has bt 01/11/17 01/12/17 01/12/17 14:00 04:20 04:20 WBC 6.6 RBC 2.22 L Hgb 6.8 L Hct 20.4 L MCV 92.1 MCH 30.9 MCHC 33.6 RDW 20.7 H Plt Count 69 L MPV 8.3 Neut % (Auto) 61.4 Lymph % (Auto) 16.0 L [place] % (Auto) 18.4 H Eos % (Auto) 2.7 Baso % (Auto) 1.5 Neut # 4.1 Lymph # 1.1 [place] # 1.2 H Eos # 0.2 Baso # 0.1 Sodium 137 Potassium 3.8 Chloride 113 H Carbon Dioxide 15 L Anion Gap 13 BUN 30 H Creatinine 2.3 H Est GFR ( Amer) 38 Est GFR (Non-Af Amer) 32 POC Glucose (mg/dL) Random Glucose 103 Calcium 7.1 L Lipase Cancelled Fluid Source Fluid Appearance Fluid WBC Fluid RBC Fluid Tot Cell Count Fluid Neutrophils Fluid Lymphocytes Fld Monocyte/Macrophag Fluid Glucose Fluid Comment C. difficile Ag & Toxin Negative Blood Type Antibody Screen Crossmatch BBK History Checked 01/12/17 01/12/17 08:34 10:06 WBC RBC Hgb Hct MCV MCH MCHC RDW Plt Count MPV Neut % (Auto) Lymph % (Auto) [place] % (Auto) Eos % (Auto) Baso % (Auto) Neut # Lymph # [place] # Eos # Baso # Sodium Potassium Chloride Carbon Dioxide Anion Gap BUN Creatinine Est GFR ( Amer) Est GFR (Non-Af Amer) POC Glucose (mg/dL) 147 H Random Glucose Calcium Lipase 2877 H Fluid Source Fluid Appearance Fluid WBC Fluid RBC Fluid Tot Cell Count Fluid Neutrophils Fluid Lymphocytes Fld Monocyte/Macrophag Fluid Glucose Fluid Comment C. difficile Ag & Toxin Blood Type Antibody Screen Crossmatch BBK History Checked Fingerstick Blood Sugar Results: 143 Review of Systems - Review of Systems All systems: reviewed and no additional remarkable complaints except - Constitutional Constitutional: Chills, Weakness - Cardiovascular Cardiovascular: absent: Chest Pain, Palpitations - Respiratory Respiratory: absent: Dyspnea - Gastrointestinal Gastrointestinal: Abdominal Pain (epigastric), Nausea. absent: Vomiting - Genitourinary Genitourinary: Other (flores removed 01/11/2017). absent: Dysuria - Integumentary Integumentary: absent: Pruritus - Neurological Neurological: absent: Dizziness, Headaches, Tremor Critical Care Progress Note - Nutrition Nutrition: Nutrition Category Date Time Status Heart Healthy Diet [DIET] Diets 01/09/17 Lunch Active Assessment/Plan - Assessment and Plan (Free Text) Assessment: 37 y/o man w/ unknown pmh except for alcoholism sent to ED found passed out laying in own feces. Patient in ICU for hepatic encephalopathy in presence of liver cirrhosis and ROHIT. Plan: Hepatic Encephalopthy - no known medical history except for alcoholism - found distended, jaundiced, cirrhotic liver - on admission BMP (143/3.5, 109/19, 48/1.7, glucose 133), NH4+ 70, ALT 46, AST 253, direct bilirubin 7.5, CPK 1082 - NH4+ 01/10/2017 38 - no asterixis; however, patient has mental status changes - today he is cooperative but had 1-2 minute where unresponsive and responded after accucheck - s/p paracentesis 01/11/2017, 4.5 L clear peritoneal/ascites fluid - blood urine, and peritoneal fluid cultures show no growth - Abd U/S: cirrhosis of the liver, mild hepatosplenomegaly, reversal of portal venous flow, pancreas not visualized - follow up CMP - GI consult, Dr. Pimentel - zosyn 2.25 gm IV Q6h day 4 - neutra-phos 1 packet QID - IVF D%-1/2NS KCl 20 mEq @ 100 mL/hr Possible Seizure - unresponsive for 1-2 minutes despite sternal rub - regained consciousness after accucheck - EEG ordered - neuro checks Q3h - seizure precautions - elevate head of bed ROHIT - on admission Cr 1.7 - continues to increase, Cr 2.3 today - nephrology consult, Dr. Hernandez for possible hepatorenal syndrome Anemia - s/p 1 unit PRBC 01/10/2017 - this morning Hb 6.8 - Receiving 1 unit PRBC now - follow up tomorrow morning's CBC Non-Anion Gap metabolic acidosis - HCO3 15 with anion gap of 9 - possibly from ROHIT, multiple bowel movements - sodium bicarbonate 650 mg Po Q8h Alcohol use - patient denies drinking for many months - AST 2.5x value of ALT - alcohol level on admission <10 - folic acid 1 mg PO daily - thiamine 100 mg PO daily Tachycardia - resolved - propranolol 10 mg PO TID Diet - heart healthy diet - ensure x1 per day HS Deconditioning/Weakness - PT/OT ordered Prophylactic Measures - SCDs, patient INR 1.7 auto-anticoagulating - protonix 40 mg IV daily <Abdi Ornelas - Last Filed: 01/12/17 14:13> Assessment/Plan - Assessment and Plan (Free Text) Plan: Attestation: Patient seen and examined at the bedside with Resident Dr. Cuauhtemoc Gan; and I agree with his outline of plans and management as documented and discussed on AM rounds reflecting my review of all applicable clinical data, and participation in the care of the patient throughout the day in ICU; today, January 12, 2017.
--- NOTE | 2017-01-12 15:18 | US ---
Date of Procedure: 01/11/2017 PROCEDURE: Ultrasound-guided paracentesis, CPT 29994 Medications: 7 cc 1% Lidocaine HISTORY: Ascites, abdominal pain, cirrhosis TECHNIQUE: Following informed consent , the patient was placed supine on the stretcher and the site was marked. A limited abdominal ultrasound was performed that showed a large amount of intra-abdominal fluid. Procedural time out was called and the Pt's abdomen was marked and prepped and draped in the usual sterile fashion. Ultrasound-guided large volume paracentesis performed. A total of 7 liters of straw colored fluid was removed without complication. Fluid specimen was sent for culture, sensitivity, cytology and chemistries. IMPRESSION: Ultrasound-guided large volume paracentesis.
[2017-01-12] MEDS: Piperacill/Tazo 2.25gm in Dex 2.25 GM/50 ML BAG IVPB SCH ×2 (17:37→22:29)
[2017-01-12] MEDS: Potassium Ch 20mEq in D5-1/2NS 1,000 ML IV SCH (19:39)
[2017-01-13 04:57] LABS: HEMATOCRIT 24.7 % (35.0-51.0); MEAN CELL VOLUME 91.6 fl (80.0-94.0); MEAN CORPUSCULAR HEMOGLOBIN 31.4 pg (27.0-31.0); MEAN CORPUSCULAR HGB CONC 34.3 g/dL (33.0-37.0); RED CELL DISTRIBUTION WIDTH 19.5 % (11.5-14.5); WHITE BLOOD COUNT 8.3 K/uL (4.8-10.8)
[2017-01-13 05:09] LABS: ALB/GLOB RATIO 0.5 (1.0-2.1); BILIRUBIN,TOTAL 13.7 mg/dl (0.2-1.3); CALCIUM 7.2 mg/dL (8.4-10.2); TOTAL PROTEIN 7.3 G/DL (6.3-8.2)
[2017-01-13] MEDS: Piperacill/Tazo 2.25gm in Dex 2.25 GM/50 ML BAG IVPB SCH ×4 (05:30→22:09)
[2017-01-13 07:19] LABS: CHLORIDE URINE 20 mmol/L (32-290)
--- NOTE | 2017-01-13 07:54 | CP.PCM.PN ---
Subjective - Date & Time of Evaluation Date of Evaluation: 01/13/17 Time of Evaluation: 07:45 - Subjective Subjective: Patient seen and examined bedside. Chronically ill male , lying in bed in NAD. Awake ,alert ,answering questions and follows command. 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 No acute issues overnight. Still with soft bowel movements but more formed. Abdomen is distended , denies any pain. BP 122/53 HR 74 T 99 saturating 98 % on 2 L O2 via NC WBC 8.3 hgb 8.5 plt 99 KBUN / Cr 33/ 2.7 CO2 15 Objective - Vital Signs/Intake and Output Vital Signs (last 24 hours): Temp Pulse Resp BP Pulse Ox 99.0 F 74 25 H 122/53 L 98 01/13/17 04:00 01/13/17 06:00 01/13/17 06:00 01/13/17 06:00 01/13/17 06:00 Intake and Output: 01/13/17 01/13/17 06:59 18:59 Intake Total 820 Output Total 50 Balance 770 - Medications Medications: Current Medications Folic Acid (Folic Acid) 1 mg PO DAILY [facility] Last Admin: 01/12/17 13:32 Dose: 1 mg Piperacillin Sod/Tazobactam Sod (Zosyn 2.25 Gm Iv Premix) 2.25 gm in 50 mls @ 50 mls/hr IVPB Q6 [facility] PRN Reason: Protocol Last Admin: 01/13/17 05:30 Dose: 50 mls/hr Potassium Chloride/Dextrose/Sod Cl (Potassium Chl 20 Meq In D5-1/2ns) 1,000 mls @ 80 mls/hr IV .[id number] [facility] Stop: 01/13/17 19:08 Last Admin: 01/12/17 19:39 Dose: 80 mls/hr Pantoprazole Sodium (Protonix Inj) 40 mg IVP DAILY [facility] Last Admin: 01/12/17 08:44 Dose: 40 mg Potassium Phos/Sodium Phos (Neutra-Phos) 1 pkt PO QID [facility] Last Admin: 01/12/17 21:15 Dose: 1 pkt Propranolol HCl (Inderal) 10 mg PO TID [facility] Last Admin: 01/12/17 17:35 Dose: 10 mg Sodium Bicarbonate (Sodium Bicarbonate Tab) 650 mg PO Q8 [facility] Stop: 01/13/17 09:01 Last Admin: 01/13/17 01:00 Dose: Not Given Thiamine HCl (Vitamin B1 Tab) 100 mg PO DAILY [facility] Last Admin: 01/12/17 13:32 Dose: 100 mg - Labs Labs: 01/13/17 04:45 01/13/17 04:45 PT 18.9 Seconds (9.8-13.1) H 01/11/17 08:00 INR 1.7 (0.9-1.2) H 01/11/17 08:00 APTT 42.5 Seconds (25.6-37.1) H 01/11/17 08:00 - Constitutional Appears: No Acute Distress, Older Than Stated Age, Cachectic, Chronically Ill - Head Exam Head Exam: ATRAUMATIC, NORMAL INSPECTION, NORMOCEPHALIC - Eye Exam Eye Exam: EOMI, Normal appearance, PERRL, Scleral icterus Additional comments: right periorbital healing hematoma - ENT Exam ENT Exam: Mucous Membranes Moist, Normal Exam - Neck Exam Neck Exam: Full ROM, Normal Inspection - Respiratory Exam Respiratory Exam: Clear to Ausculation Bilateral, NORMAL BREATHING PATTERN. absent: Rales, Rhonchi, Wheezes, Respiratory Distress - Cardiovascular Exam Cardiovascular Exam: REGULAR RHYTHM, RRR, +S1, +S2. absent: JVD - GI/Abdominal Exam GI & Abdominal Exam: Distended, Firm. absent: Guarding, Tenderness, Rebound - Rectal Exam Rectal Exam: Deferred - Extremities Exam Extremities Exam: Full ROM, Normal Capillary Refill, Normal Inspection. absent : Calf Tenderness, Pedal Edema - Back Exam Back Exam: NORMAL INSPECTION - Neurological Exam Neurological Exam: Alert, Awake, CN II-XII Intact Additional comments: oriented to place - Psychiatric Exam Psychiatric exam: Normal Affect - Skin Skin Exam: Dry, Warm Additional comments: jaundice skin tears to bilateral hips and buttock moisture associated dermatitis Assessment and Plan - Assessment and Plan (Free Text) Assessment: 32 yr old male with unknown past medical history except for alcoholism was brought to ED after having been found lying on ground littered in his own feces for unknown period of time, noted to be lethargic, moaning and groaning with skin tears on back and sides of hips. Work up included CT head and spine which were neg for any acute pathology. Further work up revealed elevated ammonia level (72), and bilirubin (10), BAL<10 and CPK 1082. Patient was admitted in ICU for AMS secondary to hepatic encephalopathy , liver cirrhosis, ROHIT. At present more awake and alert but with worsening kidney function. Has memory problems. 1. AMS most likely secondary to Hepatic encephalopathy patient has all stigmata of liver cirrhosis at present more awake and alert , answering questions and following commands but has memory problems on IV Zosyn for possible SBP Cultures with no growth so far Hold lactulose for now since patient had multiple loose bowel movements CXR showed no infiltrate. CT head with no acute pathology Continue thimaine Folic acid and MVI With episode of unresponsiveness yesterday questionable for seizure episode Follow up EEG. Hold and ant seizure medications seizure/ withdrawal precautions Ativan PRN 2. Liver cirrhosis with ascites, coagulopathy , thrombocytopenia MELD score 28 patient has high mortality rate supportive care for now s/p abdominal parasenthesis with removal of 7 L of ascitic fluid started Propranolol 10 mg tid GI consulted Dr Pimentel 3. Fever prob sec to SBP afebrile last 24 hours cultures with no growth so far cont IV Zosyn Paracentesis done , 7 liters of ascitic fluid removed 25% Albumin given prior to the procedure 4. ROHIT with metabolic acidosis unclear if ATN vs HRS Creatinine trending up from 1.7--- 2.7 and CO2 15 Abd Us showed chronic renal disease Nephrology consulted started Sodium Bicarb Po IVF and close monitoring poor prognosis 5. Coagulopathy/ thrombocytopenia/ Anemia most likley related to chronic liver disease and chronic alcoholism transfused 2 unit PRBC, platelet and FFP supportive care 6. Chronic alcoholism Withdrawal/ seizure precautions off Banana bag continue PO thiamine, Folic acid , MVI Ativan PRN 7.Rhabdomyolysis patient has signs of trauma right periorbital echymosis and left hip skin abrasions CT head and spine showed no acute pathology CPK was elevated Given IVF 8. Elevated lipase most likely secondary to alcoholism tolerating PO diet continue IVF , supportive care 9. Electrolyte abnormalities /hypokalemia/ hypomagnesemia/ hypophosphatemia replace and monitor closely 8. Multiple skin abrasions wound nurse consult appreciated 10. Episode of Unresponsive ? related to Hepatic Encephalopathy r/o Seizure f/u EEG CT of head : neg 11. DVT prophylaxis hold anticoagulation since patient has elevated INR and thrombocytopenia
--- NOTE | 2017-01-13 08:31 | CP.CCUPN ---
<Mitchel Gan - Last Filed: 01/13/17 08:28> CCU Subjective - Physician Review Subjective (Free Text): 01/13/17 08:28 Patient seen and examined at bedside. Patient NAD but complains of epigastric abdominal pain and nausea. Patient AAOx1, knows his name and is from [facility] but does not know what country he is in currently and the year. Patient is cooperative and follows commands. Patient had 7 bowel movements overnight but denies melena or hematochezia. Patient denies headache, dizziness, chest pain, or SOB. CCU Objective - Vital Signs / Intake & Output Vital Signs (Last 4 hours): Vital Signs Pulse Resp BP Pulse Ox 01/13/17 06:00 74 25 H 122/53 L 98 Intake and Output (Last 8hrs): Intake & Output 01/12/17 01/13/17 01/13/17 22:59 06:59 14:59 Intake Total 605 640 Output Total 50 Balance 605 590 Intake: IV 230 640 Intake, Piggyback 50 Blood Product 325 Output: Urine 50 Urine, Voided 50 Other: # Bowel Movements 5 1 - Physical Exam Head: Positive for: Abrasion, Other (temporal mm atrophy, bilateral orbital ecchymosis R worse than L.) Pupils: Positive for: PERRL Extroacular Muscles: Positive for: EOMI Conjunctiva: Positive for: Icteric Nose (External): Positive for: Atraumatic Nose (Internal): Positive for: No Active Bleeding Neck: Positive for: Normal Range of Motion. Negative for: Meningeal Signs, JVD Respiratory/Chest: Positive for: Clear to Auscultation Cardiovascular: Positive for: Regular Rate and Rhythm, Normal S1, S2, Tachycardic. Negative for: Murmurs, Rub Abdomen: Positive for: Distention, Normal Bowel Sounds. Negative for: Tenderness, Peritoneal Signs, Rebound, Guarding Lower Extremity: Positive for: Edema, NORMAL PULSES. Negative for: CALF TENDERNESS, Cyanosis, Tenderness Neurological: Positive for: GCS=15 Skin: Positive for: Warm, Laceration, Other (macerated and erythematous skin changes over both hips and mid sacral area.). Negative for: Rashes Lymphatic: Negative for: Cervical Adenopathy, Inguinal Adenopathy Psychiatric: Positive for: Alert, Lethargic - Medications Active Medications: Active Medications Generic Name Dose Route Start Last Admin Trade Name Ralphq PRN Reason Stop Dose Admin Albumin Human 12.5 gm 01/13/17 09:00 Albumin Human 25% (12.5 Gm/50 Ml) IV 01/13/17 09:01 ONCE ONE Folic Acid 1 mg 01/12/17 10:15 01/12/17 13:32 Folic Acid PO 1 mg DAILY MEG Administration Piperacillin Sod/Tazobactam Sod 2.25 gm in 50 mls @ 50 mls/hr 01/12/17 16:00 01/13/17 05:30 Zosyn 2.25 Gm Iv Premix IVPB 50 mls/hr Q6 MEG Administration Protocol Potassium Chloride/Dextrose/Sod Cl 1,000 mls @ 80 mls/hr 01/12/17 19:15 01/12 19:39 Potassium Chl 20 Meq In D5-1/2ns IV 01/13/17 19:08 80 mls/hr .[id number] MEG Administration Octreotide Acetate 50 mcg 01/13/17 09:00 Sandostatin IV Q8 MEG Pantoprazole Sodium 40 mg 01/09/17 09:00 01/12/17 08:44 Protonix Inj IVP 40 mg DAILY MEG Administration Potassium Phos/Sodium Phos 1 pkt 01/09/17 13:00 01/12/17 21:15 Neutra-Phos PO 1 pkt QID MEG Administration Propranolol HCl 10 mg 01/10/17 17:00 01/12/17 17:35 Inderal PO 10 mg TID MEG Administration Sodium Bicarbonate 650 mg 01/11/17 09:00 01/13/17 01:00 Sodium Bicarbonate Tab PO 01/13/17 09:01 Not Given Q8 MEG Thiamine HCl 100 mg 01/12/17 10:15 01/12/17 13:32 Vitamin B1 Tab PO 100 mg DAILY MEG Administration - Patient Studies Lab Studies: Microbiology Studies 01/10/17 21:30 Blood Culture - Preliminary Blood NO GROWTH AFTER 48 HOURS 01/10/17 21:00 Blood Culture - Preliminary Blood NO GROWTH AFTER 48 HOURS 01/08/17 08:15 Blood Culture - Preliminary Blood NO GROWTH AFTER 4 DAYS 01/08/17 07:35 Blood Culture - Preliminary Blood NO GROWTH AFTER 4 DAYS 01/11/17 13:30 Mycobacterial Culture - Preliminary Other: Please Indicate 01/11/17 13:30 Gram Stain - Final Ascitic Fluid Body Fluid Culture - Preliminary NO GROWTH AFTER 24 HOURS 01/10/17 23:00 Urine Culture - Final Urine,Catheterized No Growth (<1,000 CFU/ML) Lab Studies 01/13/17 01/13/17 01/12/17 Range/Units 04:45 04:45 16:50 WBC 8.3 (4.8-10.8) K/uL RBC 2.70 L (4.40-5.90) Mil/uL Hgb 8.5 L (12.0-18.0) g/dL Hct 24.7 L (35.0-51.0) % MCV 91.6 (80.0-94.0) fl MCH 31.4 H (27.0-31.0) pg MCHC 34.3 (33.0-37.0) g/dL RDW 19.5 H (11.5-14.5) % Plt Count 99 L D (130-400) K/uL Sodium 135 (132-148) mmol/l Potassium 4.0 (3.6-5.0) MMOL/L Chloride 112 H (98-107) mmol/L Carbon Dioxide 15 L (22-30) mmol/L Anion Gap 12 (10-20) BUN 33 H (9-20) mg/dl Creatinine 2.7 H (0.8-1.5) mg/dL Est GFR ( Amer) 32 Est GFR (Non-Af Amer) 26 POC Glucose (mg/dL) (65-110) mg/dL Random Glucose 113 H (75-110) mg/dL Calcium 7.2 L (8.4-10.2) mg/dL Total Bilirubin 13.7 H (0.2-1.3) mg/dl AST 118 H D (17-59) U/L ALT 49 (21-72) U/L Alkaline Phosphatase 116 (38-126) U/L Total Protein 7.3 (6.3-8.2) G/DL Albumin 2.4 L (3.5-5.0) g/dL Globulin 4.9 H (2.2-3.9) gm/dL Albumin/Globulin Ratio 0.5 L (1.0-2.1) Lipase Ur Random Sodium < 5 meq/L Ur Random Potassium 35.5 mmol/L Urine Chloride (32-290) mmol/L Blood Type Antibody Screen Crossmatch BBK History Checked 01/12/17 01/12/17 01/12/17 Range/Units 16:50 10:06 08:34 WBC (4.8-10.8) K/uL RBC (4.40-5.90) Mil/uL Hgb (12.0-18.0) g/dL Hct (35.0-51.0) % MCV (80.0-94.0) fl MCH (27.0-31.0) pg MCHC (33.0-37.0) g/dL RDW (11.5-14.5) % Plt Count (130-400) K/uL Sodium (132-148) mmol/l Potassium (3.6-5.0) MMOL/L Chloride (98-107) mmol/L Carbon Dioxide (22-30) mmol/L Anion Gap (10-20) BUN (9-20) mg/dl Creatinine (0.8-1.5) mg/dL Est GFR ( Amer) Est GFR (Non-Af Amer) POC Glucose (mg/dL) 147 H (65-110) mg/dL Random Glucose (75-110) mg/dL Calcium (8.4-10.2) mg/dL Total Bilirubin (0.2-1.3) mg/dl AST (17-59) U/L ALT (21-72) U/L Alkaline Phosphatase (38-126) U/L Total Protein (6.3-8.2) G/DL Albumin (3.5-5.0) g/dL Globulin (2.2-3.9) gm/dL Albumin/Globulin Ratio (1.0-2.1) Lipase 2877 H Ur Random Sodium meq/L Ur Random Potassium mmol/L Urine Chloride 20 L (32-290) mmol/L Blood Type Antibody Screen Crossmatch BBK History Checked 01/12/17 01/10/17 01/08/17 Range/Units 04:20 13:30 19:43 WBC (4.8-10.8) K/uL RBC (4.40-5.90) Mil/uL Hgb (12.0-18.0) g/dL Hct (35.0-51.0) % MCV (80.0-94.0) fl MCH (27.0-31.0) pg MCHC (33.0-37.0) g/dL RDW (11.5-14.5) % Plt Count (130-400) K/uL Sodium 137 (132-148) mmol/l Potassium 3.8 (3.6-5.0) MMOL/L Chloride 113 H (98-107) mmol/L Carbon Dioxide 15 L (22-30) mmol/L Anion Gap 13 (10-20) BUN 30 H (9-20) mg/dl Creatinine 2.3 H (0.8-1.5) mg/dL Est GFR ( Amer) 38 Est GFR (Non-Af Amer) 32 POC Glucose (mg/dL) (65-110) mg/dL Random Glucose 103 (75-110) mg/dL Calcium 7.1 L (8.4-10.2) mg/dL Total Bilirubin (0.2-1.3) mg/dl AST (17-59) U/L ALT (21-72) U/L Alkaline Phosphatase (38-126) U/L Total Protein (6.3-8.2) G/DL Albumin (3.5-5.0) g/dL Globulin (2.2-3.9) gm/dL Albumin/Globulin Ratio (1.0-2.1) Lipase Cancelled Ur Random Sodium meq/L Ur Random Potassium mmol/L Urine Chloride (32-290) mmol/L Blood Type O POSITIVE O POSITIVE Antibody Screen Negative Negative Crossmatch See Detail See Detail BBK History Checked Patient has bt No verified bt Laboratory Results - last 24 hr 01/08/17 01/10/17 01/12/17 19:43 13:30 04:20 WBC RBC Hgb Hct MCV MCH MCHC RDW Plt Count Sodium 137 Potassium 3.8 Chloride 113 H Carbon Dioxide 15 L Anion Gap 13 BUN 30 H Creatinine 2.3 H Est GFR ( Amer) 38 Est GFR (Non-Af Amer) 32 POC Glucose (mg/dL) Random Glucose 103 Calcium 7.1 L Total Bilirubin AST ALT Alkaline Phosphatase Total Protein Albumin Globulin Albumin/Globulin Ratio Lipase Cancelled Ur Random Sodium Ur Random Potassium Urine Chloride Blood Type O POSITIVE O POSITIVE Antibody Screen Negative Negative Crossmatch See Detail See Detail BBK History Checked No verified bt Patient has bt 01/12/17 01/12/17 01/12/17 08:34 10:06 16:50 WBC RBC Hgb Hct MCV MCH MCHC RDW Plt Count Sodium Potassium Chloride Carbon Dioxide Anion Gap BUN Creatinine Est GFR ( Amer) Est GFR (Non-Af Amer) POC Glucose (mg/dL) 147 H Random Glucose Calcium Total Bilirubin AST ALT Alkaline Phosphatase Total Protein Albumin Globulin Albumin/Globulin Ratio Lipase 2877 H Ur Random Sodium Ur Random Potassium Urine Chloride 20 L Blood Type Antibody Screen Crossmatch BBK History Checked 01/12/17 01/13/17 01/13/17 16:50 04:45 04:45 WBC 8.3 RBC 2.70 L Hgb 8.5 L Hct 24.7 L MCV 91.6 MCH 31.4 H MCHC 34.3 RDW 19.5 H Plt Count 99 L D Sodium 135 Potassium 4.0 Chloride 112 H Carbon Dioxide 15 L Anion Gap 12 BUN 33 H Creatinine 2.7 H Est GFR ( Amer) 32 Est GFR (Non-Af Amer) 26 POC Glucose (mg/dL) Random Glucose 113 H Calcium 7.2 L Total Bilirubin 13.7 H AST 118 H D ALT 49 Alkaline Phosphatase 116 Total Protein 7.3 Albumin 2.4 L Globulin 4.9 H Albumin/Globulin Ratio 0.5 L Lipase Ur Random Sodium < 5 Ur Random Potassium 35.5 Urine Chloride Blood Type Antibody Screen Crossmatch BBK History Checked Fingerstick Blood Sugar Results: 143 Review of Systems - Review of Systems All systems: reviewed and no additional remarkable complaints except - EENT Eyes: absent: Change in Vision, Pain - Cardiovascular Cardiovascular: absent: Chest Pain, Dyspnea - Respiratory Respiratory: absent: Cough, Dyspnea - Gastrointestinal Gastrointestinal: Abdominal Pain, Diarrhea, Nausea. absent: Vomiting - Genitourinary Genitourinary: absent: Dysuria - Integumentary Integumentary: absent: Rash - Neurological Neurological: absent: Dizziness, Headaches Critical Care Progress Note - Nutrition Nutrition: Nutrition Category Date Time Status Heart Healthy Diet [DIET] Diets 01/09/17 Lunch Active Assessment/Plan - Assessment and Plan (Free Text) Assessment: 37 y/o man w/ unknown pmh except for alcoholism sent to ED found passed out laying in own feces. Patient in ICU for hepatic encephalopathy in presence of liver cirrhosis and ROHIT. Plan: Hepatic Encephalopthy - no known medical history except for alcoholism - found distended, jaundiced, cirrhotic liver - on admission BMP (143/3.5, 109/19, 48/1.7, glucose 133), NH4+ 70, ALT 46, AST 253, direct bilirubin 7.5, CPK 1082 - NH4+ 01/10/2017 38 - CMP today 135/4.0, 112/15, 33/2.7, glucose 113, Ca2+ 7.2, AST 118, ALT 49, alk phos 116, albumin 2.4 - no asterixis - cooperative and alert - s/p paracentesis 01/11/2017, 4.5 L clear peritoneal/ascites fluid - blood urine, and peritoneal fluid cultures show no growth - Abd U/S: cirrhosis of the liver, mild hepatosplenomegaly, reversal of portal venous flow, pancreas not visualized - follow up CMP - GI consult, Dr. Pimentel - zosyn 2.25 gm IV Q6h day 5 - neutra-phos 1 packet QID - IVF D%-1/2NS KCl 20 mEq @ 100 mL/hr Liver Cirrhosis - history of alcohol use but denies drinking for many months - Abd U/S showed cirrhosis of the liver - liver enzymes show elevated AST and normal ALT - lipase 2877 - TABLE MOUNTAIN II score 9.0, 6% non-operative mortality - consider TIPS Possible Seizure - fully alert and awake this morning, no events of unresponsiveness - EEG ordered - neuro checks Q3h - seizure precautions - elevate head of bed Hepatorenal Syndrome - on admission Cr 1.7 - continues to increase, Cr 2.7 today - urine Na <5, K 35.5, Cl 20, renal tubular acidosis - octreotide 50 mcg IV Q8h - albumin 25% 12.5 gm IV - will do 2-3 day trial of albumin and octreotide to assess halt of progression of hepatorenal syndrome - nephrology consult, Dr. Hernandez for hepatorenal syndrome Anemia - s/p 1 unit PRBC 01/10/2017 - s/p 1 unit PRBC 01/12/2017 - this morning Hb 8.5 - follow up tomorrow morning's CBC Non-Anion Gap metabolic acidosis - HCO3 15 with anion gap of 8 - possibly from ROHIT, multiple bowel movements - sodium bicarbonate 650 mg PO Q8h Alcohol use - patient denies drinking for many months - AST 2.5x value of ALT - alcohol level on admission <10 - folic acid 1 mg PO daily - thiamine 100 mg PO daily Tachycardia - resolved - propranolol 10 mg PO TID Diet - heart healthy diet - 2 gm Na - ensure x1 per day HS Deconditioning/Weakness - PT/OT ordered Prophylactic Measures - SCDs, patient INR 1.7 auto-anticoagulating - protonix 40 mg IV daily <Abdi Ornelas - Last Filed: 01/13/17 17:12> Critical Care Progress Note - Nutrition Nutrition: Nutrition Category Date Time Status Heart Healthy Diet [DIET] Diets 01/09/17 Lunch Active Assessment/Plan - Assessment and Plan (Free Text) Plan: Attestation: Patient seen and examined at the bedside with Resident Dr. Cuauhtemoc Gan; and I agree with his outline of plans and management as documented and discussed on AM rounds reflecting my review of all applicable clinical data, and participation in the care of the patient throughout the day in ICU; today, January 13, 2017.
[2017-01-13] MEDS: Potassium & Sodium Phosphate PO SCH ×4 (08:55→22:08)
[2017-01-13] MEDS: Potassium Ch 20mEq in D5-1/2NS 1,000 ML IV SCH (08:56)
[2017-01-13] MEDS ORDERED: Albumin Human 25% (12.5 gm/50 ml) IV ONE (09:00)
--- NOTE | 2017-01-13 09:01 | CP.PCM.CON ---
History of Present Illness - History of Present Illness History of Present Illness: Patient is a 37 years of age, I was called to see him for abnormal kidney function. Patient is not given much history except what's present in the medical record. Patient has language barrier Patient what appeared to be a long history of alcoholism and liver cirrhosis may be? 32 yr old male with unknown past medical history except for alcoholism was brought to ED after having been found lying on ground littered in his own feces for unknown period of time, noted to be lethargic, moaning and groaning with skin tears on back and sides of hips. Work up included CT head and spine which were neg for any acute pathology. Further work up revealed elevated ammonia level (72), and bilirubin (10), BAL<10 and CPK 1082. Patient was admitted in ICU for AMS secondary to hepatic encephalopathy , liver cirrhosis, ROHIT. At present more awake and alert but with worsening kidney function. Has memory problems. Review of Systems - Constitutional Constitutional: As Per HPI, Malaise, Weakness. absent: Chills, Fever - Cardiovascular Cardiovascular: Dyspnea, Dyspnea on Exertion. absent: Acrocyanosis, Chest Pain , Edema, Leg Edema, Leg Ulcers, Pedal Edema - Respiratory Respiratory: As Per HPI. absent: Cough, Hemoptysis - Gastrointestinal Gastrointestinal: As Per HPI, Abdominal Pain, Bloating, Nausea. absent: Coffee Ground Emesis - Genitourinary Genitourinary: As Per HPI - Reproductive: Male Reproductive:Male: As Per HPI - Musculoskeletal Musculoskeletal: Abnormal Gait, Muscle Weakness - Integumentary Integumentary: Dry Skin. absent: Pruritus - Neurological Neurological: Abnormal Gait, Confusion, Lack of Coordination - Psychiatric Psychiatric: As Per HPI - Hematologic/Lymphatic Hematologic: As Per HPI Past Patient History - Tetanus Immunizations Tetanus Immunization: Unknown - Past Medical History & Family History Past Medical History?: No - Past Social History Smoking Status: Unknown If Ever Smoked - CARDIAC Hx Cardiac Disorders: (Unknown) - PULMONARY Hx Respiratory Disorders: (Unknown) - NEUROLOGICAL Hx Neurological Disorder: (Unknown) - HEENT Hx HEENT Problems: (Unknown) - RENAL Hx Chronic Kidney Disease: (Unknown) - ENDOCRINE/METABOLIC Hx Endocrine Disorders: (Unknown) - HEMATOLOGICAL/ONCOLOGICAL Hx Cirrhosis: Yes - INTEGUMENTARY Hx Dermatological Problems: (Unknown) - MUSCULOSKELETAL/RHEUMATOLOGICAL Hx Falls: Yes - GASTROINTESTINAL Hx Gastrointestinal Disorders: (Unknown) - GENITOURINARY/GYNECOLOGICAL Hx Genitourinary Disorders: (Unknown) - PSYCHIATRIC Hx Substance Use: No - SURGICAL HISTORY Hx Surgeries: (Unknown) - ANESTHESIA Hx Anesthesia: (Unknown) Meds Allergies/Adverse Reactions: Allergies Allergy/AdvReac Type Severity Reaction Status Date / Time No Known Allergies Allergy Verified 01/08/17 18:46 - Medications Medications: Current Medications Albumin Human (Albumin Human 25% (12.5 Gm/50 Ml)) 12.5 gm IV ONCE ONE Stop: 01/13/17 09:01 Folic Acid (Folic Acid) 1 mg PO DAILY [facility] Last Admin: 01/13/17 08:55 Dose: 1 mg Piperacillin Sod/Tazobactam Sod (Zosyn 2.25 Gm Iv Premix) 2.25 gm in 50 mls @ 50 mls/hr IVPB Q6 [facility] PRN Reason: Protocol Last Admin: 01/13/17 05:30 Dose: 50 mls/hr Potassium Chloride/Dextrose/Sod Cl (Potassium Chl 20 Meq In D5-1/2ns) 1,000 mls @ 80 mls/hr IV .[id number] [facility] Stop: 01/13/17 19:08 Last Admin: 01/13/17 08:56 Dose: 80 mls/hr Octreotide Acetate (Sandostatin) 50 mcg IV Q8 [facility] Pantoprazole Sodium (Protonix Inj) 40 mg IVP DAILY [facility] Last Admin: 01/13/17 08:56 Dose: 40 mg Potassium Phos/Sodium Phos (Neutra-Phos) 1 pkt PO QID [facility] Last Admin: 01/13/17 08:55 Dose: 1 pkt Propranolol HCl (Inderal) 10 mg PO TID [facility] Last Admin: 01/13/17 08:55 Dose: 10 mg Sodium Bicarbonate (Sodium Bicarbonate Tab) 650 mg PO Q8 [facility] Stop: 01/13/17 09:01 Last Admin: 01/13/17 08:56 Dose: 650 mg Thiamine HCl (Vitamin B1 Tab) 100 mg PO DAILY [facility] Last Admin: 01/13/17 08:56 Dose: 100 mg Physical Exam - Constitutional Appears: No Acute Distress - ENT Exam ENT Exam: Mucous Membranes Moist - Respiratory Exam Respiratory Exam: NORMAL BREATHING PATTERN. absent: Chest Wall Tenderness, Rales - Cardiovascular Exam Cardiovascular Exam: absent: JVD, Rubs - GI/Abdominal Exam GI & Abdominal Exam: Distended, Guarding, Normal Bowel Sounds Additional comments: significant ascites - Extremities Exam Extremities exam: Negative for: calf tenderness, pedal edema - Back Exam Back exam: absent: CVA tenderness (L), CVA tenderness (R) - Neurological Exam Neurological exam: Altered Results - Vital Signs Recent Vital Signs: Last Vital Signs Temp 98.4 F 01/13/17 08:00 Pulse 75 01/13/17 08:55 Resp 25 H 01/13/17 08:00 BP 132/66 01/13/17 08:55 Pulse Ox 100 01/13/17 08:00 - Labs Result Diagrams: 01/13/17 04:45 01/13/17 04:45 Labs: Laboratory Results - last 24 hr 01/08/17 01/10/17 01/12/17 19:43 13:30 04:20 WBC RBC Hgb Hct MCV MCH MCHC RDW Plt Count Sodium 137 Potassium 3.8 Chloride 113 H Carbon Dioxide 15 L Anion Gap 13 BUN 30 H Creatinine 2.3 H Est GFR ( Amer) 38 Est GFR (Non-Af Amer) 32 POC Glucose (mg/dL) Random Glucose 103 Calcium 7.1 L Total Bilirubin AST ALT Alkaline Phosphatase Total Protein Albumin Globulin Albumin/Globulin Ratio Lipase Cancelled Ur Random Sodium Ur Random Potassium Urine Chloride Blood Type O POSITIVE O POSITIVE Antibody Screen Negative Negative Crossmatch See Detail See Detail BBK History Checked No verified bt Patient has bt 01/12/17 01/12/17 01/12/17 08:34 10:06 16:50 WBC RBC Hgb Hct MCV MCH MCHC RDW Plt Count Sodium Potassium Chloride Carbon Dioxide Anion Gap BUN Creatinine Est GFR ( Amer) Est GFR (Non-Af Amer) POC Glucose (mg/dL) 147 H Random Glucose Calcium Total Bilirubin AST ALT Alkaline Phosphatase Total Protein Albumin Globulin Albumin/Globulin Ratio Lipase 2877 H Ur Random Sodium Ur Random Potassium Urine Chloride 20 L Blood Type Antibody Screen Crossmatch BBK History Checked 01/12/17 01/13/17 01/13/17 16:50 04:45 04:45 WBC 8.3 RBC 2.70 L Hgb 8.5 L Hct 24.7 L MCV 91.6 MCH 31.4 H MCHC 34.3 RDW 19.5 H Plt Count 99 L D Sodium 135 Potassium 4.0 Chloride 112 H Carbon Dioxide 15 L Anion Gap 12 BUN 33 H Creatinine 2.7 H Est GFR ( Amer) 32 Est GFR (Non-Af Amer) 26 POC Glucose (mg/dL) Random Glucose 113 H Calcium 7.2 L Total Bilirubin 13.7 H AST 118 H D ALT 49 Alkaline Phosphatase 116 Total Protein 7.3 Albumin 2.4 L Globulin 4.9 H Albumin/Globulin Ratio 0.5 L Lipase Ur Random Sodium < 5 Ur Random Potassium 35.5 Urine Chloride Blood Type Antibody Screen Crossmatch BBK History Checked Assessment & Plan (1) Hepatorenal syndrome Assessment and Plan: Patient appears to have hepatorenal syndrome serum total bilirubin 13.7 and rising Serum creatinine rising as well Alcoholic liver disease Massive ascites Patient apparently has paracentesis Plan And intravenous gently IV fluid Continue monitoring Prognosis guarded Hepatitis serology still pending Hypophosphatemia continue potassium phosphate supplement Metabolic acidosis continue sodium bicarbonate Follow-up ammonia level patient may need lactulose Status: Acute (2) ROHIT (acute kidney injury) Status: Acute
--- NOTE | 2017-01-13 09:16 | EEG ---
DATE: 01/08/2017 This is a 16-channel electroencephalogram of awake and drowsy adult. During the study, photic stimulation was performed. Hyperventilation was not performed. The resting electroencephalogram continues to have low amplitude 3 to 4 Hz delta activity seen in parietal and occipital leads. Anteriorly, some movement artifact mixed with fast beta activity seen. Most of the time, these activities are continuously noted. Some movement artifact and frontal muscle artifact contaminated the background rhythm. IMPRESSION: This is an abnormal electroencephalogram because of persistent slowing throughout the record suggestive of bilateral cerebral dysfunction. This is probably secondary to metabolic, vascular, or degenerative process. Please correlate the finding with the neurological and radiological studies. Donato Roberts MD
--- NOTE | 2017-01-13 12:18 | CON ---
DATE: 01/11/2017 REASON FOR CONSULTATION: Abdominal distention, diarrhea. HISTORY OF PRESENT ILLNESS: This is a 37-year-old man, alcoholic, essentially found on the ground, covered in his own feces and unknown for how long. Essentially GI was called because ____ ascites and diarrhea as well. The patient at this point is able to provide information. He had diarrhea for a couple of days. Some fevers and chills, nausea, some discomfort and now at this point some pain. Some minimal difficulty in breathing. Otherwise, lying in bed comfortable, in no apparent distress. PAST MEDICAL HISTORY: Alcoholism. PAST SURGICAL HISTORY: Negative. MEDICATIONS: Have been reviewed. REVIEW OF SYSTEMS: All other systems have been reviewed and negative apart from the HPI. PHYSICAL EXAMINATION VITAL SIGNS: Reviewed in the hospital, grossly unremarkable. GENERAL: This is an elderly-appearing male, cachectic, lying in bed comfortably, in no apparent distress. HEENT: Head is normocephalic and atraumatic. Eyes: Pupils are equal, round, and reactive to light bilaterally. No conjunctival pallor or icterus. NECK: Supple. Normal range of motion. No lymphadenopathy appreciated. LUNGS: Coarse breath sounds bilaterally. HEART: S1 and S2. Regular rate and rhythm. No murmurs appreciated. ABDOMEN: Soft, distended. Some fluid wave present. Some discomfort. Bowel sounds are present. No rebound. No guarding. RECTAL: Deferred. EXTREMITIES: Pulses present bilaterally. SKIN: Warm, dry and intact. NEUROLOGIC: A and O x2. LABORATORY DATA: Labs are reviewed. WBC is 9.1, hemoglobin is 7.4, hematocrit is 21.9, platelet count of 82. INR 1.7, down from 2.2. Potassium 3.9, lipase of 1085, total bili 9.9, AST 164, ALT 62, alk phos 154, CPK is 326, albumin 2.3. Abdominal ultrasound shows acute fatty liver, medical renal disease, cirrhosis, splenomegaly, reversal of portal flow. ASSESSMENT AND PLAN: This is a 37-year-old man and alcoholic, found down on the field, now with multiple medical problems including ascites. From GI standpoint, recommend therapeutic and diagnostic paracentesis. For the diarrhea, recommend culture and sensitivity, ova and parasites and Clostridium difficile. Aggressive IV hydration. For the fluid status, renal input appreciated. His bili is up and we want to calculate his discriminant function. Recommend vitamin K as needed. Monitored setting for now. We will follow the patient with you. Thank you for the consult. Torrey Pimentel MD/ PhD cc: Elaine Guthrie MD
--- NOTE | 2017-01-13 14:35 | CP.PCM.PN ---
Subjective - Date & Time of Evaluation Date of Evaluation: 01/13/17 Time of Evaluation: 09:30 - Subjective Subjective: no overnight events Objective - Vital Signs/Intake and Output Vital Signs (last 24 hours): Temp Pulse Resp BP Pulse Ox 98.6 F 74 29 H 119/73 100 01/13/17 12:00 01/13/17 14:00 01/13/17 14:00 01/13/17 14:00 01/13/17 14:00 Intake and Output: 01/13/17 01/13/17 06:59 18:59 Intake Total 820 1660 Output Total 50 3 Balance 770 1657 - Medications Medications: Current Medications Folic Acid (Folic Acid) 1 mg PO DAILY [facility] Last Admin: 01/13/17 08:55 Dose: 1 mg Piperacillin Sod/Tazobactam Sod (Zosyn 2.25 Gm Iv Premix) 2.25 gm in 50 mls @ 50 mls/hr IVPB Q6 [facility] PRN Reason: Protocol Last Admin: 01/13/17 09:00 Dose: 50 mls/hr Octreotide Acetate (Sandostatin) 50 mcg IV Q8 [facility] Last Admin: 01/13/17 09:36 Dose: 50 mcg Pantoprazole Sodium (Protonix Inj) 40 mg IVP DAILY [facility] Last Admin: 01/13/17 08:56 Dose: 40 mg Potassium Phos/Sodium Phos (Neutra-Phos) 1 pkt PO QID [facility] Last Admin: 01/13/17 12:38 Dose: 1 pkt Propranolol HCl (Inderal) 10 mg PO TID [facility] Last Admin: 01/13/17 12:37 Dose: 10 mg Thiamine HCl (Vitamin B1 Tab) 100 mg PO DAILY [facility] Last Admin: 01/13/17 08:56 Dose: 100 mg - Labs Labs: 01/13/17 04:45 01/13/17 04:45 PT 18.9 Seconds (9.8-13.1) H 01/11/17 08:00 INR 1.7 (0.9-1.2) H 01/11/17 08:00 APTT 42.5 Seconds (25.6-37.1) H 01/11/17 08:00 - Eye Exam Eye Exam: Scleral icterus - Respiratory Exam Respiratory Exam: NORMAL BREATHING PATTERN - Cardiovascular Exam Cardiovascular Exam: REGULAR RHYTHM - GI/Abdominal Exam GI & Abdominal Exam: Distended, Soft, Normal Bowel Sounds Additional comments: fluid wave present Assessment and Plan - Assessment and Plan (Free Text) Assessment: 37 yo male with etoh hepatitis decompensated cirrhosis Madjorge luis's Discriminant Function is 42 (some benefit for prednisolone) but would need to rule out sources of infection prognosis guarded concern for HRS renal consult appreciated
[2017-01-14] MEDS: Piperacill/Tazo 2.25gm in Dex 2.25 GM/50 ML BAG IVPB SCH ×4 (03:50→21:07)
[2017-01-14 05:34] LABS: HEMATOCRIT 26.5 % (35.0-51.0); MEAN CELL VOLUME 93.7 fl (80.0-94.0); MEAN CORPUSCULAR HGB CONC 33.1 g/dL (33.0-37.0); RED CELL DISTRIBUTION WIDTH 20.6 % (11.5-14.5); WHITE BLOOD COUNT 8.8 K/uL (4.8-10.8)
[2017-01-14 06:22] LABS: CALCIUM 7.3 mg/dL (8.4-10.2); MAGNESIUM 1.5 MG/DL (1.6-2.3); PHOSPHOROUS 3.6 mg/dl (2.5-4.5)
[2017-01-14] MEDS: Potassium & Sodium Phosphate PO SCH ×4 (08:18→21:06)
--- NOTE | 2017-01-14 09:14 | CP.PCM.PN ---
Subjective - Date & Time of Evaluation Date of Evaluation: 01/14/17 Time of Evaluation: 09:00 - Subjective Subjective: Patient seen and examined bedside. Chronically ill male , lying in bed in NAD. Awake ,alert ,answering questions and follows command. No acute issues overnight. Still with soft bowel movements but more formed and with urinary incontinence Abdomen is more distended , denies any pain. BP 141/55 HR 66 afebrile saturating 98 % on 2 L O2 via NC WBC 8.8 hgb 8.8 plt 121 Cr 3.1 CO2 14 Mg 1.5 Objective - Vital Signs/Intake and Output Vital Signs (last 24 hours): Temp Pulse Resp BP Pulse Ox 99.2 F 74 24 92/68 L 100 01/14/17 07:45 01/14/17 08:20 01/14/17 07:45 01/14/17 08:20 01/14/17 07:45 Intake and Output: 01/14/17 01/14/17 06:59 18:59 Intake Total 250 Output Total 350 Balance -100 - Medications Medications: Current Medications Folic Acid (Folic Acid) 1 mg PO DAILY [facility] Last Admin: 01/14/17 08:18 Dose: 1 mg Piperacillin Sod/Tazobactam Sod (Zosyn 2.25 Gm Iv Premix) 2.25 gm in 50 mls @ 50 mls/hr IVPB Q6 [facility] PRN Reason: Protocol Last Admin: 01/14/17 03:50 Dose: 50 mls/hr Octreotide Acetate (Sandostatin) 50 mcg IV Q8 [facility] Last Admin: 01/14/17 08:21 Dose: 50 mcg Pantoprazole Sodium (Protonix Inj) 40 mg IVP DAILY [facility] Last Admin: 01/14/17 08:17 Dose: 40 mg Potassium Phos/Sodium Phos (Neutra-Phos) 1 pkt PO QID [facility] Last Admin: 01/14/17 08:18 Dose: 1 pkt Propranolol HCl (Inderal) 10 mg PO TID [facility] Last Admin: 01/14/17 08:20 Dose: Not Given Thiamine HCl (Vitamin B1 Tab) 100 mg PO DAILY [facility] Last Admin: 01/14/17 08:18 Dose: 100 mg - Labs Labs: 01/14/17 04:40 01/14/17 04:40 PT 18.9 Seconds (9.8-13.1) H 01/11/17 08:00 INR 1.7 (0.9-1.2) H 01/11/17 08:00 APTT 42.5 Seconds (25.6-37.1) H 01/11/17 08:00 - Constitutional Appears: No Acute Distress, Confused, Chronically Ill - Head Exam Additional comments: right cordelia orbital healing hematoma - Eye Exam Eye Exam: PERRL Pupil Exam: NORMAL ACCOMODATION, PERRL Additional comments: jaundiced - ENT Exam ENT Exam: Mucous Membranes Moist, Normal Exam - Neck Exam Neck Exam: Normal Inspection - Respiratory Exam Respiratory Exam: Clear to Ausculation Bilateral, NORMAL BREATHING PATTERN. absent: Rales, Rhonchi, Wheezes, Respiratory Distress - Cardiovascular Exam Cardiovascular Exam: REGULAR RHYTHM, RRR, +S1, +S2. absent: JVD - GI/Abdominal Exam GI & Abdominal Exam: Distended, Firm. absent: Guarding, Tenderness, Rebound - Rectal Exam Rectal Exam: Deferred - Extremities Exam Extremities Exam: Full ROM, Normal Capillary Refill, Normal Inspection. absent : Pedal Edema - Neurological Exam Neurological Exam: Alert, Awake, CN II-XII Intact Additional comments: with memory problems, confused at times not oriented to place or time - Psychiatric Exam Psychiatric exam: Normal Affect - Skin Skin Exam: Dry, Warm Additional comments: bilateral hip abrasions, buttock moisture induced dermatitis jaundiced Assessment and Plan - Assessment and Plan (Free Text) Assessment: 32 yr old male with unknown past medical history except for alcoholism was brought to ED after having been found lying on ground littered in his own feces for unknown period of time, noted to be lethargic, moaning and groaning with skin tears on back and sides of hips. Work up included CT head and spine which were neg for any acute pathology. Further work up revealed elevated ammonia level (72), and bilirubin (10), BAL<10 and CPK 1082. Patient was admitted in ICU for AMS secondary to hepatic encephalopathy , liver cirrhosis, ROHIT. At present more awake and alert but with worsening kidney function. Has memory problems. 1. AMS most likely secondary to Hepatic encephalopathy patient has all stigmata of liver cirrhosis at present more awake and alert , answering questions and following commands but has memory problems, does no5tt know where he is on IV Zosyn for possible SBP Cultures with no growth so far Hold lactulose for now since patient had multiple loose bowel movements CXR showed no infiltrate. CT head with no acute pathology Continue thiamine Folic acid and MVI Had 1 episode of unresponsiveness questionable for seizure episode 01/12 Follow up EEG. Hold any anti seizure medications seizure/ withdrawal precautions Ativan PRN 2. Liver cirrhosis with ascites, coagulopathy , thrombocytopenia MELD score 28 patient has high mortality rate supportive care for now s/p abdominal parasenthesis with removal of 7 L of ascitic fluid but abdomen significantly distended with fast re accumulation started Propranolol 10 mg tid GI consulted Dr Pimentel. Follow up on recommendations 3. Fever prob sec to SBP afebrile > 48 hours cultures with no growth so far on IV Zosyn Paracentesis done 01/11 with 7 liters of ascitic fluid removed Albumin given prior to the procedure 4. ROHIT with metabolic acidosis most likely hepatorenal syndrome Creatinine trending up from 1.7--- 3.1 and CO2 14 Abd Us showed chronic renal disease Nephrology consulted on Sodium Bicarb Po poor prognosis Started Albumin IV 5. Coagulopathy/ thrombocytopenia/ Anemia most likley related to chronic liver disease and chronic alcoholism transfused 2 unit PRBC, platelet and FFP supportive care 6. Chronic alcoholism Withdrawal/ seizure precautions off Banana bag continue PO thiamine, Folic acid , MVI Ativan PRN 7.Rhabdomyolysis patient has signs of trauma right periorbital echymosis and bilateral hip skin abrasions CT head and spine showed no acute pathology CPK was elevated Given IVF 8. Elevated lipase most likely secondary to alcoholism tolerating PO diet supportive care 9. Electrolyte abnormalities /hypokalemia/ hypomagnesemia/ hypophosphatemia replace and monitor closely 8. Multiple skin abrasions wound nurse consult appreciated 10. Episode of Unresponsive ? related to Hepatic Encephalopathy r/o Seizure EEG showed abnormal pattern CT of head : neg 11. DVT prophylaxis hold anticoagulation since patient has elevated INR and thrombocytopenia
[2017-01-14] MEDS ORDERED: Magnesium Sulfate 2 GM in Sodium Chloride 0.9% 100 ML IVPB ONE (10:00)
--- NOTE | 2017-01-14 10:06 | CP.CCUPN ---
<Mitchel Gan - Last Filed: 01/14/17 10:04> CCU Subjective - Physician Review Subjective (Free Text): 01/14/17 10:04 Patient seen and examined at bedside. Chronically ill patient NAD but complains of epigastric abdominal pain and nausea. Patient laying in bed comfortably. Patient is alert, awake, cooperative and follows commands. Patient continues to have multiple bowel movements, patient reports 7, but denies melena or hematochezia. Patient denies headache, dizziness, chest pain, or SOB. Critical Care Time Spent (in minutes): 35 CCU Objective - Vital Signs / Intake & Output Vital Signs (Last 4 hours): Vital Signs Temp Pulse Resp BP Pulse Ox 01/14/17 08:20 74 92/68 L 01/14/17 07:45 99.2 F 82 24 128/78 100 Intake and Output (Last 8hrs): Intake & Output 01/13/17 01/14/17 01/14/17 22:59 06:59 14:59 Intake Total 100 200 Output Total 350 Balance -250 200 Intake: IV 0 0 Intake, Piggyback 100 50 Oral 150 Output: Urine 150 Urine, Voided 150 Stool 200 Other: # Voids Urine, Voided 1 # Bowel Movements 1 1 - Physical Exam Head: Positive for: Abrasion, Other (temporal mm atrophy, bilateral orbital ecchymosis R worse than L.) Pupils: Positive for: PERRL Extroacular Muscles: Positive for: EOMI Conjunctiva: Positive for: Icteric Nose (External): Positive for: Atraumatic Nose (Internal): Positive for: No Active Bleeding Neck: Positive for: Normal Range of Motion. Negative for: Meningeal Signs, JVD Respiratory/Chest: Positive for: Clear to Auscultation Cardiovascular: Positive for: Regular Rate and Rhythm, Normal S1, S2, Tachycardic. Negative for: Murmurs, Rub Abdomen: Positive for: Distention, Normal Bowel Sounds. Negative for: Tenderness, Peritoneal Signs, Rebound, Guarding Lower Extremity: Positive for: Edema, NORMAL PULSES. Negative for: CALF TENDERNESS, Cyanosis, Tenderness Neurological: Positive for: GCS=15 Skin: Positive for: Warm, Laceration, Other (macerated and erythematous skin changes over both hips and mid sacral area.). Negative for: Rashes Lymphatic: Negative for: Cervical Adenopathy, Inguinal Adenopathy Psychiatric: Positive for: Alert, Lethargic - Medications Active Medications: Active Medications Generic Name Dose Route Start Last Admin Trade Name Alona PRN Reason Stop Dose Admin Albumin Human 12.5 gm 01/14/17 10:00 Albumin Human 25% (12.5 Gm/50 Ml) IV Q8 [facility] Folic Acid 1 mg 01/12/17 10:15 01/14/17 08:18 Folic Acid PO 1 mg DAILY [facility] Administration Piperacillin Sod/Tazobactam Sod 2.25 gm in 50 mls @ 50 mls/hr 01/12/17 16:00 01/14/17 09:27 Zosyn 2.25 Gm Iv Premix IVPB 50 mls/hr Q6 [facility] Administration Protocol Octreotide Acetate 1,250 mcg/ 252.5 mls @ 10.1 mls/hr 01/14/17 10:00 Sodium Chloride IV .Q24H [facility] 50 MCG/HR Magnesium Sulfate 2 gm in 50 mls @ 50 mls/hr 01/14/17 10:15 Magnesium Sulfate 2 Gm/50 Ml Water IV 01/14/17 11:14 ONCE ONE 2 GM/HR Pantoprazole Sodium 40 mg 01/09/17 09:00 01/14/17 08:17 Protonix Inj IVP 40 mg DAILY [facility] Administration Potassium Phos/Sodium Phos 1 pkt 01/09/17 13:00 01/14/17 08:18 Neutra-Phos PO 1 pkt QID [facility] Administration Propranolol HCl 10 mg 01/10/17 17:00 01/14/17 08:20 Inderal PO Not Given TID [facility] Thiamine HCl 100 mg 01/12/17 10:15 01/14/17 08:18 Vitamin B1 Tab PO 100 mg DAILY [facility] Administration - Patient Studies Lab Studies: Microbiology Studies 01/10/17 21:30 Blood Culture - Preliminary Blood NO GROWTH AFTER 3 DAYS 01/10/17 21:00 Blood Culture - Preliminary Blood NO GROWTH AFTER 3 DAYS 01/08/17 08:15 Blood Culture - Final Blood NO GROWTH AFTER 5 DAYS Gram Stain - Final TEST NOT PERFORMED 01/08/17 07:35 Blood Culture - Final Blood NO GROWTH AFTER 5 DAYS Gram Stain - Final TEST NOT PERFORMED 01/11/17 13:30 Gram Stain - Final Ascitic Fluid Body Fluid Culture - Preliminary NO GROWTH AFTER 2 DAYS Lab Studies 01/14/17 01/14/17 01/11/17 Range/Units 04:40 04:40 13:30 WBC 8.8 (4.8-10.8) K/uL RBC 2.82 L (4.40-5.90) Mil/uL Hgb 8.8 L (12.0-18.0) g/dL Hct 26.5 L (35.0-51.0) % MCV 93.7 D (80.0-94.0) fl MCH 31.0 (27.0-31.0) pg MCHC 33.1 (33.0-37.0) g/dL RDW 20.6 H (11.5-14.5) % Plt Count 121 L D (130-400) K/uL Sodium 135 (132-148) mmol/l Potassium 4.0 (3.6-5.0) MMOL/L Chloride 112 H (98-107) mmol/L Carbon Dioxide 14 L (22-30) mmol/L Anion Gap 13 (10-20) BUN 37 H (9-20) mg/dl Creatinine 3.1 H (0.8-1.5) mg/dL Est GFR ( Amer) 27 Est GFR (Non-Af Amer) 23 Random Glucose 108 (75-110) mg/dL Calcium 7.3 L (8.4-10.2) mg/dL Phosphorus 3.6 (2.5-4.5) mg/dl Magnesium 1.5 L (1.6-2.3) MG/DL Fluid Albumin 0.4 g/dL Laboratory Results - last 24 hr 01/11/17 01/14/17 01/14/17 13:30 04:40 04:40 WBC 8.8 RBC 2.82 L Hgb 8.8 L Hct 26.5 L MCV 93.7 D MCH 31.0 MCHC 33.1 RDW 20.6 H Plt Count 121 L D Sodium 135 Potassium 4.0 Chloride 112 H Carbon Dioxide 14 L Anion Gap 13 BUN 37 H Creatinine 3.1 H Est GFR ( Amer) 27 Est GFR (Non-Af Amer) 23 Random Glucose 108 Calcium 7.3 L Phosphorus 3.6 Magnesium 1.5 L Fluid Albumin 0.4 Fingerstick Blood Sugar Results: 143 Review of Systems - Review of Systems All systems: reviewed and no additional remarkable complaints except - Constitutional Constitutional: absent: Fever, Sweats - EENT Eyes: absent: Blurred Vision - Cardiovascular Cardiovascular: absent: Chest Pain, Dyspnea - Respiratory Respiratory: absent: Dyspnea - Gastrointestinal Gastrointestinal: Abdominal Pain, Diarrhea, Nausea. absent: Vomiting - Genitourinary Genitourinary: absent: Dysuria - Musculoskeletal Musculoskeletal: absent: Muscle Weakness - Integumentary Integumentary: absent: New Lesions - Neurological Neurological: absent: Dizziness, Headaches, Tremor Critical Care Progress Note - Nutrition Nutrition: Nutrition Category Date Time Status Heart Healthy Diet [DIET] Diets 01/09/17 Lunch Active Assessment/Plan - Assessment and Plan (Free Text) Assessment: 37 y/o man w/ unknown pmh except for alcoholism sent to ED found passed out laying in own feces. Patient in ICU for hepatic encephalopathy in presence of liver cirrhosis and ROHIT. Plan: AMS secondary to Hepatic Encephalopthy - AMS resolved - no known medical history except for alcoholism - found distended, jaundiced, cirrhotic liver - on admission BMP (143/3.5, 109/19, 48/1.7, glucose 133), NH4+ 70, ALT 46, AST 253, direct bilirubin 7.5, CPK 1082 - NH4+ 01/10/2017 40 - CMP today 135/4.0, 112/14, 37/3.1, glucose 108, Ca2+ 7.3, Mag 1.5, Phos 3.6 - no asterixis - cooperative and alert - s/p paracentesis 01/11/2017, 7 L clear peritoneal/ascites fluid - blood urine, and peritoneal fluid cultures show no growth - Abd U/S: cirrhosis of the liver, mild hepatosplenomegaly, reversal of portal venous flow, pancreas not visualized - follow up BMP - GI consult, Dr. Pimentel, recommendations appreciated - lactulose held due to frequent bowel movements - zosyn 2.25 gm IV Q6h day 6 - Magnesium sulfate 2 gm IV - neutra-phos 1 packet QID - IVF D%-1/2NS KCl 20 mEq @ 100 mL/hr Liver Cirrhosis - history of alcohol use but denies drinking for many months - Abd U/S showed cirrhosis of the liver - liver enzymes show elevated AST and normal ALT - lipase 2877 - YOMBA SHOSHONE II score 9.0, 6% non-operative mortality - MELD score 28 - Maddrey's discriminant Function score 42, may benefit from prednisolone but need to rule out infection Possible Seizure - fully alert and awake this morning, no events of unresponsiveness - EEG 01/12/2017: abnormal EEG, persistent slowing suggestive of bilateral cerebral dysfunction - neuro checks Q3h - seizure precautions - elevate head of bed Hepatorenal Syndrome - on admission Cr 1.7 - continues to increase, Cr 2.7 today - urine Na <5, K 35.5, Cl 20, renal tubular acidosis - octreotide 50 mcg/hr IV - albumin 25% 12.5 gm IV Q8h - will do 3-5 day trial of albumin and octreotide to assess halt of progression of hepatorenal syndrome - nephrology consult, Dr. Hernandez, recommendations appreciated Diarrhea - Multiple loose/liquid bowel movements - patient reports 7 BMs - no melena/hematochezia - follow up stool ova and parasites - follow up stool culture Anemia - s/p 1 unit PRBC 01/10/2017 - s/p 1 unit PRBC 01/12/2017 - this morning Hb 8.5 - follow up tomorrow morning's CBC Non-Anion Gap metabolic acidosis - HCO3 14 with anion gap of 9 - possibly from ROHIT, multiple bowel movements - sodium bicarbonate 650 mg PO Q8h completed, may need to continue Alcohol use - patient denies drinking for many months - AST 2.5x value of ALT - alcohol level on admission <10 - folic acid 1 mg PO daily - thiamine 100 mg PO daily Skin abrasions - wound care consult, recommendations appreciated Tachycardia - resolved - propranolol 10 mg PO TID Diet - heart healthy diet - 2 gm Na - ensure x1 per day HS Deconditioning/Weakness - PT/OT ordered Prophylactic Measures - SCDs, patient INR 1.7 auto-anticoagulating - protonix 40 mg IV daily <Abdi Ornleas - Last Filed: 01/14/17 16:25> Assessment/Plan - Assessment and Plan (Free Text) Plan: Attestation: Patient seen and examined at the bedside with Resident Dr. Cuauhtemoc Gan; and I agree with his outline of plans and management as documented and discussed on AM rounds reflecting my review of all applicable clinical data, and participation in the care of the patient throughout the day in ICU; today, January 14, 2017.
[2017-01-14] MEDS ORDERED: Magnesium Sulfate 2 gm/50 ml 2 GM/50 ML BAG IV ONE (10:15)
[2017-01-14] MEDS: Albumin Human 25% (12.5 gm/50 ml) IV SCH ×2 (10:31→17:20)
--- NOTE | 2017-01-14 13:16 | CP.PCM.PN ---
Subjective - Date & Time of Evaluation Date of Evaluation: 01/14/17 Time of Evaluation: 13:12 - Subjective Subjective: Patient awake and conscious in bed No nausea or vomiting Also reported that his appetite good and he is eating Objective - Vital Signs/Intake and Output Vital Signs (last 24 hours): Temp Pulse Resp BP Pulse Ox 98.3 F 73 23 121/71 100 01/14/17 12:00 01/14/17 13:08 01/14/17 12:00 01/14/17 13:08 01/14/17 12:00 Intake and Output: 01/14/17 01/14/17 06:59 18:59 Intake Total 250 272 Output Total 350 Balance -100 272 - Medications Medications: Current Medications Albumin Human (Albumin Human 25% (12.5 Gm/50 Ml)) 12.5 gm IV Q8 [facility] Last Admin: 01/14/17 10:31 Dose: 12.5 gm Folic Acid (Folic Acid) 1 mg PO DAILY [facility] Last Admin: 01/14/17 08:18 Dose: 1 mg Piperacillin Sod/Tazobactam Sod (Zosyn 2.25 Gm Iv Premix) 2.25 gm in 50 mls @ 50 mls/hr IVPB Q6 [facility] PRN Reason: Protocol Last Admin: 01/14/17 09:27 Dose: 50 mls/hr Octreotide Acetate 1,250 mcg/ (Sodium Chloride) 252.5 mls @ 10.1 mls/hr IV .Q24H [facility] PRN Reason: 50 MCG/HR Last Admin: 01/14/17 10:47 Dose: 10.1 mls/hr Pantoprazole Sodium (Protonix Inj) 40 mg IVP DAILY [facility] Last Admin: 01/14/17 08:17 Dose: 40 mg Potassium Phos/Sodium Phos (Neutra-Phos) 1 pkt PO QID [facility] Last Admin: 01/14/17 13:07 Dose: 1 pkt Propranolol HCl (Inderal) 10 mg PO TID [facility] Last Admin: 01/14/17 13:08 Dose: 10 mg Thiamine HCl (Vitamin B1 Tab) 100 mg PO DAILY [facility] Last Admin: 01/14/17 08:18 Dose: 100 mg - Labs Labs: 01/14/17 04:40 01/14/17 04:40 PT 18.9 Seconds (9.8-13.1) H 01/11/17 08:00 INR 1.7 (0.9-1.2) H 01/11/17 08:00 APTT 42.5 Seconds (25.6-37.1) H 01/11/17 08:00 - Constitutional Appears: No Acute Distress - Eye Exam Eye Exam: Scleral icterus - ENT Exam ENT Exam: Mucous Membranes Moist - Respiratory Exam Respiratory Exam: NORMAL BREATHING PATTERN. absent: Chest Wall Tenderness, Rales - Cardiovascular Exam Cardiovascular Exam: absent: JVD, Rubs - GI/Abdominal Exam GI & Abdominal Exam: Distended Additional comments: increasing in ascites - Extremities Exam Extremities Exam: absent: Calf Tenderness - Back Exam Back Exam: absent: CVA tenderness (L), CVA tenderness (R) - Neurological Exam Neurological Exam: Alert - Psychiatric Exam Psychiatric exam: Normal Affect - Skin Skin Exam: Pallor Assessment and Plan (1) Hepatorenal syndrome Assessment & Plan: Hepatorenal syndrome related to alcoholic liver disease Increasing in ascites Worsening kidney function Discussed with the demand planner Continue albumin Octriotide Patient may need more paracentesis and the next day or 2 We will consider dialysis if kidney function continued to deteriorate Status: Acute (2) ROHIT (acute kidney injury) Status: Acute
[2017-01-15] MEDS: Piperacill/Tazo 2.25gm in Dex 2.25 GM/50 ML BAG IVPB SCH ×4 (03:08→22:04)
[2017-01-15 06:36] LABS: MEAN CELL VOLUME 92.8 fl (80.0-94.0); MEAN CORPUSCULAR HEMOGLOBIN 31.5 pg (27.0-31.0); MEAN CORPUSCULAR HGB CONC 33.9 g/dL (33.0-37.0); RED CELL DISTRIBUTION WIDTH 21.2 % (11.5-14.5); WHITE BLOOD COUNT 8.9 K/uL (4.8-10.8)
[2017-01-15 06:48] LABS: CALCIUM 7.8 mg/dL (8.4-10.2)
[2017-01-15] MEDS: Albumin Human 25% (12.5 gm/50 ml) IV SCH ×2 (08:09)
[2017-01-15] MEDS: Potassium & Sodium Phosphate PO SCH ×3 (08:13→16:31)
--- NOTE | 2017-01-15 11:21 | CP.PCM.PN ---
Subjective - Date & Time of Evaluation Date of Evaluation: 01/15/17 Time of Evaluation: 11:00 - Subjective Subjective: No fever Pt is sitted on a chair, in good spirits tolerating PO diet denies CP no SOB abd distention no abd pain had 2 episodes of diarrhea no N/V Objective - Vital Signs/Intake and Output Vital Signs (last 24 hours): Temp Pulse Resp BP Pulse Ox 98.2 F 75 25 H 130/78 99 01/15/17 08:00 01/15/17 08:10 01/15/17 08:00 01/15/17 08:10 01/15/17 08:00 Intake and Output: 01/15/17 01/15/17 06:59 18:59 Intake Total 700 Output Total 450 Balance 250 - Medications Medications: Current Medications Folic Acid (Folic Acid) 1 mg PO DAILY [facility] Last Admin: 01/15/17 08:14 Dose: 1 mg Piperacillin Sod/Tazobactam Sod (Zosyn 2.25 Gm Iv Premix) 2.25 gm in 50 mls @ 50 mls/hr IVPB Q6 MEG PRN Reason: Protocol Last Admin: 01/15/17 09:44 Dose: 50 mls/hr Octreotide Acetate 1,250 mcg/ (Sodium Chloride) 252.5 mls @ 10.1 mls/hr IV .Q24H MEG PRN Reason: 50 MCG/HR Last Admin: 01/15/17 11:12 Dose: 10.1 mls/hr Pantoprazole Sodium (Protonix Inj) 40 mg IVP DAILY [facility] Last Admin: 01/15/17 08:15 Dose: 40 mg Potassium Phos/Sodium Phos (Neutra-Phos) 1 pkt PO QID [facility] Last Admin: 01/15/17 08:13 Dose: 1 pkt Propranolol HCl (Inderal) 10 mg PO TID [facility] Last Admin: 01/15/17 08:10 Dose: 10 mg Sodium Bicarbonate (Sodium Bicarbonate Tab) 1,300 mg PO Q12 [facility] Thiamine HCl (Vitamin B1 Tab) 100 mg PO DAILY [facility] Last Admin: 01/15/17 08:14 Dose: 100 mg - Labs Labs: 01/15/17 05:30 01/15/17 05:30 PT 18.9 Seconds (9.8-13.1) H 01/11/17 08:00 INR 1.7 (0.9-1.2) H 01/11/17 08:00 APTT 42.5 Seconds (25.6-37.1) H 01/11/17 08:00 - Constitutional Appears: Older Than Stated Age, Chronically Ill - Head Exam Head Exam: NORMOCEPHALIC - Eye Exam Eye Exam: Periorbital swelling, Scleral icterus Pupil Exam: NORMAL ACCOMODATION Additional comments: periorbital hematoma - ENT Exam ENT Exam: Mucous Membranes Moist, Normal External Ear Exam - Neck Exam Neck Exam: Full ROM. absent: Meningismus - Respiratory Exam Respiratory Exam: Rales, Rhonchi - Cardiovascular Exam Cardiovascular Exam: Tachycardia, REGULAR RHYTHM, +S1, +S2 - GI/Abdominal Exam GI & Abdominal Exam: Distended, Tenderness, Normal Bowel Sounds Additional comments: ascites - Extremities Exam Extremities Exam: Full ROM, Normal Capillary Refill. absent: Calf Tenderness, Pedal Edema - Back Exam Back Exam: Full ROM. absent: CVA tenderness (L), CVA tenderness (R) - Neurological Exam Neurological Exam: Alert, Awake, CN II-XII Intact Additional comments: oriented to person and place moves all extremities - Psychiatric Exam Psychiatric exam: Flat Affect - Skin Skin Exam: Abrasion, Dry, Warm Additional comments: jaundiced Assessment and Plan - Assessment and Plan (Free Text) Assessment: 32 yr old male with unknown past medical history except for alcoholism was brought to ED after having been found lying on ground littered in his own feces for unknown period of time, noted to be lethargic, moaning and groaning with skin tears on back and sides of hips. Work up included CT head and spine which were neg for any acute pathology. Further work up revealed elevated ammonia level (72), and bilirubin (10), BAL<10 and CPK 1082. Patient was admitted in ICU for AMS secondary to hepatic encephalopathy , liver cirrhosis, ROHIT. At present more awake and alert but with worsening kidney function. Has memory problems. 1. AMS most likely secondary to Hepatic encephalopathy patient has all stigmata of liver cirrhosis at present more awake and alert , answering questions and following commands but has memory problems, does no5tt know where he is on IV Zosyn for possible SBP Cultures with no growth so far Hold lactulose for now since patient had multiple loose bowel movements CXR showed no infiltrate. CT head with no acute pathology Continue thiamine Folic acid and MVI Had 1 episode of unresponsiveness questionable for seizure episode 01/12 Follow up EEG. Hold any anti seizure medications seizure/ withdrawal precautions Ativan PRN 2. Liver cirrhosis with ascites, coagulopathy , thrombocytopenia MELD score 28 patient has high mortality rate supportive care for now s/p abdominal parasenthesis with removal of 7 L of ascitic fluid but abdomen significantly distended with fast re accumulation started Propranolol 10 mg tid GI consulted Dr Pimentel. Follow up on recommendations 3. Fever prob sec to SBP afebrile > 48 hours cultures with no growth so far on IV Zosyn Paracentesis done 01/11 with 7 liters of ascitic fluid removed Albumin given prior to the procedure 4. ROHIT with metabolic acidosis most likely hepatorenal syndrome Creatinine trending up from 1.7--- 3.1 and CO2 14 Abd Us showed chronic renal disease Nephrology consulted on Sodium Bicarb Po poor prognosis Started Albumin IV 5. Coagulopathy/ thrombocytopenia/ Anemia most likley related to chronic liver disease and chronic alcoholism transfused 2 unit PRBC, platelet and FFP supportive care 6. Chronic alcoholism Withdrawal/ seizure precautions off Banana bag continue PO thiamine, Folic acid , MVI Ativan PRN 7.Rhabdomyolysis patient has signs of trauma right periorbital echymosis and bilateral hip skin abrasions CT head and spine showed no acute pathology CPK was elevated Given IVF 8. Elevated lipase most likely secondary to alcoholism tolerating PO diet supportive care 9. Electrolyte abnormalities /hypokalemia/ hypomagnesemia/ hypophosphatemia replace and monitor closely 8. Multiple skin abrasions wound nurse consult appreciated 10. Episode of Unresponsive ? related to Hepatic Encephalopathy r/o Seizure EEG showed abnormal pattern CT of head : neg 11. DVT prophylaxis hold anticoagulation since patient has elevated INR and thrombocytopenia
--- NOTE | 2017-01-15 20:50 | CP.PCM.PN ---
Subjective - Date & Time of Evaluation Date of Evaluation: 01/15/17 Time of Evaluation: 10:00 - Subjective Subjective: renal follow up note no events overnight pe: vitals reviewed awake, oriented X3 s1s2 present no resp distress abd soft, distended skin normal normal affect cooperative A&P: virgen/hepatorenal syndrome/acidosis/liver cirrhosis/hepatic encephalopathy/ascites cr is stable volume status stable lytes reviewed acidosis: i have added sodium bicarb cirrhosis management per icu please call our office @ [phone] for any qs Objective - Vital Signs/Intake and Output Vital Signs (last 24 hours): Temp Pulse Resp BP Pulse Ox 98.2 F 82 19 144/72 100 01/15/17 16:00 01/15/17 17:45 01/15/17 16:00 01/15/17 17:45 01/15/17 16:00 Intake and Output: 01/15/17 01/16/17 18:59 06:59 Intake Total 500 Output Total 150 Balance 350 - Medications Medications: Current Medications Folic Acid (Folic Acid) 1 mg PO DAILY [facility] Last Admin: 01/15/17 08:14 Dose: 1 mg Piperacillin Sod/Tazobactam Sod (Zosyn 2.25 Gm Iv Premix) 2.25 gm in 50 mls @ 50 mls/hr IVPB Q6 MEG PRN Reason: Protocol Last Admin: 01/15/17 16:30 Dose: 50 mls/hr Octreotide Acetate 1,250 mcg/ (Sodium Chloride) 252.5 mls @ 10.1 mls/hr IV .Q24H MEG PRN Reason: 50 MCG/HR Last Admin: 01/15/17 11:12 Dose: 10.1 mls/hr Lactulose (Enulose) 20 gm PO BID PRN PRN Reason: Constipation Last Admin: 01/15/17 18:24 Dose: 20 gm Pantoprazole Sodium (Protonix Inj) 40 mg IVP DAILY [facility] Last Admin: 01/15/17 08:15 Dose: 40 mg Propranolol HCl (Inderal) 10 mg PO TID [facility] Last Admin: 01/15/17 17:45 Dose: 10 mg Sodium Bicarbonate (Sodium Bicarbonate Tab) 1,300 mg PO Q12 [facility] Last Admin: 01/15/17 11:00 Dose: 1,300 mg Thiamine HCl (Vitamin B1 Tab) 100 mg PO DAILY [facility] Last Admin: 01/15/17 08:14 Dose: 100 mg - Labs Labs: 01/15/17 05:30 01/15/17 05:30 PT 18.9 Seconds (9.8-13.1) H 01/11/17 08:00 INR 1.7 (0.9-1.2) H 01/11/17 08:00 APTT 42.5 Seconds (25.6-37.1) H 01/11/17 08:00
--- NOTE | 2017-01-16 03:00 | PN ---
DATE: 01/15/2017 LOCATION: The patient in ICU, bed 435. TIME SPENT: 35 minutes. SUBJECTIVE: The patient is seen and examined at the bedside. Events since admission noted. Past medical, surgical and social history reviewed. A 37-year-old male admitted with altered mental status, hepatic encephalopathy, possible seizure, and hepatorenal syndrome, anemia status post transfusion of 2 units of packed red blood cells, non anion gap metabolic acidosis with worsening renal function. Remains alert, awake, out of bed to chair, complaining of abdominal distention. No nausea, no vomiting. Had bowel movement twice so far. Denies melena or hematochezia. PHYSICAL EXAMINATION: VITAL SIGNS: Temperature 98.2, heart rate 72 regular, blood pressure 119/78, respiratory rate 23 thoracoabdominal, saturation 100%. Intake 1960, output 353, positive balance 1607. HEAD, EYES, EARS, NOSE AND THROAT: Pupils reactive. Sclerae anicteric. NECK: Supple. Trachea is central. CHEST: Bilateral breath sounds diminished in intensity. HEART: Rhythm regular. S1, S2 normal. ABDOMEN: Bowel sounds present, distended. No tenderness. EXTREMITIES: Edema present in both lower extremities. Dorsalis pedis palpable. NEUROLOGIC: Oriented to name, place and time. SKIN: Warm to touch. No rashes. CURRENT MEDICATIONS: Include folic acid 1 mg daily, octreotide acetate 1250 mcg in sodium chloride at 10.1 mL/hour, Protonix 40 IV daily, Zosyn 2.25 g IV q. 6, Inderal 10 mg p.o. three times daily, sodium bicarbonate 1300 mg p.o. q. 12, thiamine 100 mg p.o. daily. IMPRESSION: 1. Neurologic: Admitted with altered mental status, hepatic encephalopathy, now improved status post seizure probably related to alcohol. 2. Cardiac: Remains in sinus rhythm. Normotensive. 3. Pulmonary: Reduced lung volumes secondary to poor inspiratory effort secondary to massive ascites. 4. Gastrointestinal: Liver cirrhosis with ascites status post paracentesis, empirically on Zosyn for spontaneous bacterial peritonitis. 5. Renal: Chronic renal insufficiency, suspected hepatorenal syndrome, on albumin; non anion gap metabolic acidosis, on sodium bicarbonate. 6. Hematology. Anemia of chronic disease, thrombocytopenia, no acute blood loss noted secondary to hematochezia or melena. 7. Fluids, electrolyte, and nutrition: Continue feeding as tolerated. Hold lactulose as the patient continues to have bowel movement and the mental status improved compared to baseline. Closely monitor for further recurrence of seizure if any. Out of bed to chair as tolerated. Mark Bryant MD
[2017-01-16] MEDS: Piperacill/Tazo 2.25gm in Dex 2.25 GM/50 ML BAG IVPB SCH ×4 (03:39→21:05)
[2017-01-16 06:06] LABS: BASO # 0.3 K/uL (0.0-0.2); BASO % 2.9 % (0.0-2.0); EOS # 0.2 K/uL (0.0-0.7); EOS % 1.9 % (0.0-4.0); HEMATOCRIT 25.1 % (35.0-51.0); LYMPH # 2.1 K/uL (1.0-4.3); LYMPH % 20.5 % (20.0-40.0); MEAN CELL VOLUME 93.9 fl (80.0-94.0); MEAN CORPUSCULAR HEMOGLOBIN 30.9 pg (27.0-31.0); MEAN CORPUSCULAR HGB CONC 32.9 g/dL (33.0-37.0); MEAN PLATELET VOLUME 8.4 fl (7.2-11.7); MONO # 1.6 K/uL (0.0-0.8); MONO % 15.5 % (0.0-10.0); NEUT # 5.9 K/uL (1.8-7.0); NEUT % 59.2 % (50.0-75.0); RED CELL DISTRIBUTION WIDTH 20.6 % (11.5-14.5)
[2017-01-16 06:19] LABS: ALB/GLOB RATIO 0.6 (1.0-2.1); BILIRUBIN,TOTAL 9.7 mg/dl (0.2-1.3); CALCIUM 7.9 mg/dL (8.4-10.2); PHOSPHOROUS 4.2 mg/dl (2.5-4.5); TOTAL PROTEIN 7.3 G/DL (6.3-8.2)
--- NOTE | 2017-01-16 11:59 | CP.PCM.PN ---
Subjective - Date & Time of Evaluation Date of Evaluation: 01/16/17 Time of Evaluation: 11:00 - Subjective Subjective: No fever no CP no SOB abd distended pt is alert, oriented x 2 no diarrhea today - will restart Lactulose good PO intake Objective - Vital Signs/Intake and Output Vital Signs (last 24 hours): Temp Pulse Resp BP Pulse Ox 98.3 F 72 14 119/47 L 92 L 01/16/17 08:00 01/16/17 08:21 01/16/17 08:00 01/16/17 08:21 01/16/17 08:00 Intake and Output: 01/16/17 01/16/17 06:59 18:59 Intake Total 470 Output Total 300 Balance 170 - Medications Medications: Current Medications Albumin Human (Albumin Human 25% (12.5 Gm/50 Ml)) 12.5 gm IV Q8 [facility] Folic Acid (Folic Acid) 1 mg PO DAILY [facility] Last Admin: 01/16/17 08:22 Dose: 1 mg Piperacillin Sod/Tazobactam Sod (Zosyn 2.25 Gm Iv Premix) 2.25 gm in 50 mls @ 50 mls/hr IVPB Q6 [facility] PRN Reason: Protocol Last Admin: 01/16/17 09:43 Dose: 50 mls/hr Octreotide Acetate 1,250 mcg/ (Sodium Chloride) 252.5 mls @ 10.1 mls/hr IV .Q24H MEG PRN Reason: 50 MCG/HR Last Admin: 01/15/17 11:12 Dose: 10.1 mls/hr Lactulose (Enulose) 20 gm PO BID PRN PRN Reason: Constipation Last Admin: 01/15/17 18:24 Dose: 20 gm Pantoprazole Sodium (Protonix Inj) 40 mg IVP DAILY [facility] Last Admin: 01/16/17 09:43 Dose: 40 mg Propranolol HCl (Inderal) 10 mg PO TID [facility] Last Admin: 01/16/17 08:21 Dose: 10 mg Sodium Bicarbonate (Sodium Bicarbonate Tab) 1,300 mg PO Q12 [facility] Last Admin: 01/16/17 08:21 Dose: 1,300 mg Thiamine HCl (Vitamin B1 Tab) 100 mg PO DAILY [facility] Last Admin: 01/16/17 08:22 Dose: 100 mg - Labs Labs: 01/16/17 05:30 01/16/17 05:30 PT 18.9 Seconds (9.8-13.1) H 01/11/17 08:00 INR 1.7 (0.9-1.2) H 01/11/17 08:00 APTT 42.5 Seconds (25.6-37.1) H 01/11/17 08:00 - Constitutional Appears: Older Than Stated Age, Chronically Ill - Head Exam Head Exam: NORMOCEPHALIC - Eye Exam Eye Exam: Periorbital swelling, Scleral icterus Pupil Exam: NORMAL ACCOMODATION Additional comments: periorbital hematoma, resolving - ENT Exam ENT Exam: Mucous Membranes Moist, Normal External Ear Exam - Neck Exam Neck Exam: Full ROM. absent: Meningismus - Respiratory Exam Respiratory Exam: Rales, Rhonchi - Cardiovascular Exam Cardiovascular Exam: Tachycardia, REGULAR RHYTHM, +S1, +S2 - GI/Abdominal Exam GI & Abdominal Exam: Distended, Tenderness, Normal Bowel Sounds Additional comments: massive ascites - Extremities Exam Extremities Exam: Full ROM, Normal Capillary Refill. absent: Calf Tenderness, Pedal Edema - Back Exam Back Exam: Full ROM. absent: CVA tenderness (L), CVA tenderness (R) - Neurological Exam Neurological Exam: Alert, Awake, CN II-XII Intact Additional comments: oriented to person and place moves all extremities - Psychiatric Exam Psychiatric exam: Flat Affect - Skin Skin Exam: Abrasion, Dry, Warm Additional comments: jaundiced Assessment and Plan - Assessment and Plan (Free Text) Assessment: 32 yr old male with unknown past medical history except for alcoholism was brought to ED after having been found lying on ground littered in his own feces for unknown period of time, noted to be lethargic, moaning and groaning with skin tears on back and sides of hips. Work up included CT head and spine which were neg for any acute pathology. Further work up revealed elevated ammonia level (72), and bilirubin (10), BAL<10 and CPK 1082. Patient was admitted in ICU for AMS secondary to hepatic encephalopathy , liver cirrhosis, ROHIT. At present more awake and alert but with worsening kidney function. Has memory problems. 1. AMS most likely secondary to Hepatic encephalopathy patient has all stigmata of liver cirrhosis at present more awake and alert , answering questions and following commands but has memory problems on IV Zosyn for possible SBP Cultures with no growth so far Lactulose - at least 2 BM per day CXR showed no infiltrate. CT head with no acute pathology Continue thiamine Folic acid and MVI seizure/ withdrawal precautions Ativan PRN 2. Liver cirrhosis with ascites, coagulopathy , thrombocytopenia MELD score 28 patient has high mortality rate supportive care for now s/p abdominal paracentesis with removal of 7 L of ascitic fluid but abdomen significantly distended with fast re accumulation started Propranolol 10 mg tid GI consulted Dr Pimentel. Follow up on recommendations 3. Fever prob sec to SBP afebrile > 48 hours cultures with no growth so far on IV Zosyn Paracentesis done 01/11 with 7 liters of ascitic fluid removed Albumin given prior to the procedure 4. ROHIT with metabolic acidosis most likely hepatorenal syndrome Creatinine trending up from 1.7--- 3.1 Abd Us showed chronic renal disease Nephrology consulted on Sodium Bicarb Po poor prognosis Started Albumin IV and Octretide drip 5. Coagulopathy/ thrombocytopenia/ Anemia most likely related to chronic liver disease and chronic alcoholism transfused 2 unit PRBC, platelet and FFP supportive care 6. Chronic alcoholism Withdrawal/ seizure precautions off Banana bag continue PO thiamine, Folic acid , MVI Ativan PRN 7.Rhabdomyolysis patient has signs of trauma right periorbital echymosis and bilateral hip skin abrasions CT head and spine showed no acute pathology CPK was elevated Given IVF 8. Elevated lipase most likely secondary to alcoholism tolerating PO diet supportive care 9. Electrolyte abnormalities /hypokalemia/ hypomagnesemia/ hypophosphatemia replace and monitor closely 8. Multiple skin abrasions wound nurse consult appreciated 10. Episode of Unresponsive ? related to Hepatic Encephalopathy r/o Seizure EEG showed abnormal pattern CT of head : neg 11. DVT prophylaxis hold anticoagulation since patient has elevated INR and thrombocytopenia
[2017-01-16] MEDS: Albumin Human 25% (12.5 gm/50 ml) IV SCH ×2 (12:16→16:59)
--- NOTE | 2017-01-16 22:36 | CP.PCM.PN ---
Subjective - Date & Time of Evaluation Date of Evaluation: 01/16/17 Time of Evaluation: 14:00 - Subjective Subjective: renal follow up note no events overnight pe: vitals reviewed awake, oriented X3 s1s2 present no resp distress abd soft, distended skin normal normal affect cooperative A&P: virgen/hepatorenal syndrome/acidosis/liver cirrhosis/hepatic encephalopathy/ascites cr is stable volume status stable lytes reviewed acidosis: mildly improved, continue sodium bicarb please call our office @ [phone] for any qs Objective - Vital Signs/Intake and Output Vital Signs (last 24 hours): Temp Pulse Resp BP Pulse Ox 99.2 F 70 25 H 131/70 100 01/16/17 20:00 01/16/17 18:00 01/16/17 18:00 01/16/17 18:00 01/16/17 18:00 Intake and Output: 01/16/17 01/17/17 18:59 06:59 Intake Total 990 230 Output Total 100 50 Balance 890 180 - Medications Medications: Current Medications Albumin Human (Albumin Human 25% (12.5 Gm/50 Ml)) 12.5 gm IV Q8 [facility] Last Admin: 01/16/17 16:59 Dose: 12.5 gm Folic Acid (Folic Acid) 1 mg PO DAILY [facility] Last Admin: 01/16/17 08:22 Dose: 1 mg Piperacillin Sod/Tazobactam Sod (Zosyn 2.25 Gm Iv Premix) 2.25 gm in 50 mls @ 50 mls/hr IVPB Q6 MEG PRN Reason: Protocol Last Admin: 01/16/17 21:05 Dose: 50 mls/hr Octreotide Acetate 1,250 mcg/ (Sodium Chloride) 252.5 mls @ 10.1 mls/hr IV .Q24H MEG PRN Reason: 50 MCG/HR Last Admin: 01/16/17 15:31 Dose: 10.1 mls/hr Lactulose (Enulose) 20 gm PO BID PRN PRN Reason: Constipation Last Admin: 01/15/17 18:24 Dose: 20 gm Pantoprazole Sodium (Protonix Inj) 40 mg IVP DAILY [facility] Last Admin: 01/16/17 09:43 Dose: 40 mg Propranolol HCl (Inderal) 10 mg PO TID [facility] Last Admin: 01/16/17 16:59 Dose: 10 mg Sodium Bicarbonate (Sodium Bicarbonate Tab) 1,300 mg PO Q12 [facility] Last Admin: 01/16/17 21:04 Dose: 1,300 mg Thiamine HCl (Vitamin B1 Tab) 100 mg PO DAILY [facility] Last Admin: 01/16/17 08:22 Dose: 100 mg - Labs Labs: 01/16/17 05:30 01/16/17 05:30 PT 18.9 Seconds (9.8-13.1) H 01/11/17 08:00 INR 1.7 (0.9-1.2) H 01/11/17 08:00 APTT 42.5 Seconds (25.6-37.1) H 01/11/17 08:00
--- NOTE | 2017-01-16 23:27 | PN ---
CRITICAL CARE PROGRESS NOTE DATE: 01/16/2017 LOCATION: Patient in ICU, bed 435. TIME SPENT: 35 minutes. SUBJECTIVE: The patient is seen and evaluated at the bedside. A 37-year-old male admitted with altered mental status, hepatic/metabolic encephalopathy, seizure disorder, hepatorenal syndrome, anemia of chronic disease; status post transfusion packed red blood cells, non-anion gap metabolic acidosis with worsening renal function/hepatorenal syndrome. Alert and awake, out of bed to chair. Abdominal distention persist, but no nausea, vomiting. Had no bowel movement today. IC lactulose started. PHYSICAL EXAMINATION: VITAL SIGNS: Temperature 98.8, heart rate 74, blood pressure 125/80, mean arterial pressure 95, respiratory rate 22, oxygen saturation 99%. Intake 970, output 450. Positive balance 520. HEAD, EYES, EARS, NOSE, AND THROAT: Sclerae icteric. Pupils are reactive. NECK: Supple. Trachea is central. CHEST: Bilateral breath sounds. Clear to auscultation. HEART: Rhythm regular. S1, S2 normal. ABDOMEN: Bowel sounds present x4 quadrants. Distended. No tenderness. EXTREMITIES: Edema, both lower extremities. Dorsalis pedis palpable. NEUROLOGIC: Oriented to name and place. Slow to respond. No cranial, motor, or sensory deficit. SKIN: Warm to touch. CURRENT MEDICATIONS: Include folic acid 1 mg daily, octreotide 1250 mcg, sodium chloride at 10.1 mL/hour, Protonix 40 IV daily, Zosyn 2.25 g IV q.6, Inderal 10 mg p.o. 3 times a day, sodium bicarbonate 30 mEq p.o. q.12, thiamine 100 mg daily. LABORATORY DATA: WBC 10, hemoglobin 8.3, hematocrit 25.1, platelet count of 161, neutrophils 59.2, lymphocytes 20.5, monocytes 15.5. PT 18.9, INR 1.7, PTT 42.5. SMA-7: Sodium 140, potassium 4, chloride 112, CO2 17, blood urea nitrogen 44, creatinine 3.2, glucose 109, calcium 7.9, phosphorus 4.2, total bilirubin 9.7, AST 109, ALT 36, alkaline phosphatase 87, total protein 7.3, albumin 2.7. Albumin globulin ratio 0.6. Urinalysis: Wbc 89, leukocyte esterase trace. Urine drug screen negative. Stool C-diff antigen and toxin negative. Microbiology: Stool culture; no Salmonella, Shigella, or Campylobacter. No ova or parasite noted. Urine culture, no growth. Blood culture, no growth. Abdominal ultrasound done on 01/12, cirrhosis of the liver and hepatosplenomegaly, reversal of portal venous flow, pancreas obscured by bowel gas, diffuse increased echogenicity in the kidneys with four cortical medullary differentiation suggestive of medical renal disease. IMPRESSION 1. Neurological: Metabolic/hepatic encephalopathy, possible septic encephalopathy secondary to urinary tract infection/spontaneous bacterial peritonitis. Continue lactulose until further bowel movement. On IV Zosyn for possible bacterial peritonitis. Continue thiamine, folic acid, multivitamin. EEG suggestive of metabolic, vascular slowing of activity. 2. Gastrointestinal: Liver cirrhosis with ascites, coagulopathy and thrombocytopenia with Model for End--Stage Liver Disease score of 28 suggesting high mortality rate, status post abdominal paracentesis with removal of 7 liters of ascitic fluid. On propranolol 10 mg 3 times daily. Gastrointestinal consult noted. 3. Pulmonary: Reduced lung volumes secondary to reduced inspiratory effort emitted by massive ascites, possible effusion with atelectasis secondary to ascites. 4. Renal: Acute kidney injury with metabolic acidosis, likely hepatorenal syndrome, renal function compromised, increased from 1.7 to 3.1. Ultrasound of the kidney shows medical renal disease. On sodium bicarbonate. Nephrology consult noted. Recommended to continue IV albumin, octreotide drip. 5. Hematology: Coagulopathy, thrombocytopenia, and anemia related to chronic liver disease and chronic alcoholism, status post transfusion, 2 units of packed red blood cells and fresh frozen plasma. Supportive care. Closely monitor for further drop in hemoglobin. 6. History of substance abuse, alcohol. Remains clinically stable with no evidence of withdrawal symptoms. Monitor for alcohol-related withdrawal seizure. 7. Fluids, electrolyte, and nutrition: Closely monitor electrolytes and replace as needed. 8. Gastrointestinal prophylaxis. Deep venous thrombosis prophylaxis, on hold as the patient is auto-coagulated from chronic liver disease. 9. Prognosis remains guarded. Mark Bryant MD
[2017-01-17] MEDS: Albumin Human 25% (12.5 gm/50 ml) IV SCH ×2 (01:00→08:26)
[2017-01-17] MEDS: Piperacill/Tazo 2.25gm in Dex 2.25 GM/50 ML BAG IVPB SCH ×3 (03:14→16:50)
[2017-01-17 05:37] LABS: ALB/GLOB RATIO 0.7 (1.0-2.1); BILIRUBIN,TOTAL 8.9 mg/dl (0.2-1.3); POTASSIUM 4.2 MMOL/L (3.6-5.0); TOTAL PROTEIN 7.3 G/DL (6.3-8.2)
[2017-01-17 07:11] LABS: HEMATOCRIT 22.7 % (35.0-51.0); MEAN CELL VOLUME 93.1 fl (80.0-94.0); MEAN CORPUSCULAR HEMOGLOBIN 31.7 pg (27.0-31.0); MEAN CORPUSCULAR HGB CONC 34.1 g/dL (33.0-37.0); RED CELL DISTRIBUTION WIDTH 20.7 % (11.5-14.5)
--- NOTE | 2017-01-17 10:26 | CP.PCM.PN ---
Subjective - Date & Time of Evaluation Date of Evaluation: 01/17/17 Time of Evaluation: 10:22 - Subjective Subjective: Patient and bed Awake No vomiting Vital sign noted with normal blood pressure Objective - Vital Signs/Intake and Output Vital Signs (last 24 hours): Temp Pulse Resp BP Pulse Ox 97.7 F 69 17 120/74 97 01/17/17 08:00 01/17/17 08:27 01/17/17 08:00 01/17/17 08:27 01/17/17 08:00 Intake and Output: 01/17/17 01/17/17 06:59 18:59 Intake Total 650 Output Total 250 Balance 400 - Medications Medications: Current Medications Albumin Human (Albumin Human 25% (12.5 Gm/50 Ml)) 12.5 gm IV Q8 MEG Last Admin: 01/17/17 08:26 Dose: 12.5 gm Folic Acid (Folic Acid) 1 mg PO DAILY MEG Last Admin: 01/17/17 08:27 Dose: 1 mg Piperacillin Sod/Tazobactam Sod (Zosyn 2.25 Gm Iv Premix) 2.25 gm in 50 mls @ 50 mls/hr IVPB Q6 MEG PRN Reason: Protocol Last Admin: 01/17/17 03:14 Dose: 50 mls/hr Octreotide Acetate 1,250 mcg/ (Sodium Chloride) 252.5 mls @ 10.1 mls/hr IV .Q24H MEG PRN Reason: 50 MCG/HR Last Admin: 01/16/17 15:31 Dose: 10.1 mls/hr Lactulose (Enulose) 20 gm PO BID PRN PRN Reason: Constipation Last Admin: 01/15/17 18:24 Dose: 20 gm Pantoprazole Sodium (Protonix Ec Tab) 40 mg PO DAILY [facility] Propranolol HCl (Inderal) 10 mg PO TID MEG Last Admin: 01/17/17 08:27 Dose: 10 mg Sodium Bicarbonate (Sodium Bicarbonate Tab) 1,300 mg PO Q12 MEG Last Admin: 01/17/17 08:27 Dose: 1,300 mg Thiamine HCl (Vitamin B1 Tab) 100 mg PO DAILY MEG Last Admin: 01/17/17 08:27 Dose: 100 mg - Labs Labs: 01/17/17 04:40 01/17/17 04:40 PT 18.9 Seconds (9.8-13.1) H 01/11/17 08:00 INR 1.7 (0.9-1.2) H 01/11/17 08:00 APTT 42.5 Seconds (25.6-37.1) H 01/11/17 08:00 - Constitutional Appears: No Acute Distress - Eye Exam Eye Exam: Scleral icterus - ENT Exam ENT Exam: Mucous Membranes Moist - Respiratory Exam Respiratory Exam: NORMAL BREATHING PATTERN. absent: Chest Wall Tenderness - Cardiovascular Exam Cardiovascular Exam: absent: JVD, Rubs - GI/Abdominal Exam GI & Abdominal Exam: Firm Additional comments: massive ascites - Extremities Exam Extremities Exam: absent: Calf Tenderness - Back Exam Back Exam: absent: CVA tenderness (L), CVA tenderness (R) - Neurological Exam Neurological Exam: Alert - Skin Skin Exam: Pallor Assessment and Plan (1) Hepatorenal syndrome Assessment & Plan: Hepatorenal syndrome Acute kidney injury superimposed on hepatorenal syndrome Massive ascites Liver cirrhosis Continue management of liver cirrhosis Patient need paracentesis Bicarbonate for acidosis Prognosis guarded Status: Acute (2) ROHIT (acute kidney injury) Status: Acute
[2017-01-17] MEDS: Pantoprazole 40 mg EC Tab PO SCH (10:46)
--- NOTE | 2017-01-17 11:30 | CP.PCM.PN ---
Subjective - Date & Time of Evaluation Date of Evaluation: 01/17/17 Time of Evaluation: 10:00 - Subjective Subjective: No fever looks comfortable abd discomfort tpolerating Po diet denies CP no SOB Objective - Vital Signs/Intake and Output Vital Signs (last 24 hours): Temp Pulse Resp BP Pulse Ox 97.7 F 69 17 120/74 97 01/17/17 08:00 01/17/17 08:27 01/17/17 08:00 01/17/17 08:27 01/17/17 08:00 Intake and Output: 01/17/17 01/17/17 06:59 18:59 Intake Total 650 Output Total 250 Balance 400 - Medications Medications: Current Medications Albumin Human (Albumin Human 25% (12.5 Gm/50 Ml)) 12.5 gm IV Q8 MEG Last Admin: 01/17/17 08:26 Dose: 12.5 gm Folic Acid (Folic Acid) 1 mg PO DAILY MEG Last Admin: 01/17/17 08:27 Dose: 1 mg Piperacillin Sod/Tazobactam Sod (Zosyn 2.25 Gm Iv Premix) 2.25 gm in 50 mls @ 50 mls/hr IVPB Q6 MEG PRN Reason: Protocol Last Admin: 01/17/17 10:49 Dose: 50 mls/hr Octreotide Acetate 1,250 mcg/ (Sodium Chloride) 252.5 mls @ 10.1 mls/hr IV .Q24H MEG PRN Reason: 50 MCG/HR Last Admin: 01/16/17 15:31 Dose: 10.1 mls/hr Lactulose (Enulose) 20 gm PO BID PRN PRN Reason: Constipation Last Admin: 01/15/17 18:24 Dose: 20 gm Pantoprazole Sodium (Protonix Ec Tab) 40 mg PO DAILY MEG Last Admin: 01/17/17 10:46 Dose: Not Given Propranolol HCl (Inderal) 10 mg PO TID MEG Last Admin: 01/17/17 08:27 Dose: 10 mg Sodium Bicarbonate (Sodium Bicarbonate Tab) 1,300 mg PO Q12 MEG Last Admin: 01/17/17 08:27 Dose: 1,300 mg Thiamine HCl (Vitamin B1 Tab) 100 mg PO DAILY MEG Last Admin: 01/17/17 08:27 Dose: 100 mg - Labs Labs: 01/17/17 04:40 01/17/17 04:40 PT 18.9 Seconds (9.8-13.1) H 01/11/17 08:00 INR 1.7 (0.9-1.2) H 01/11/17 08:00 APTT 42.5 Seconds (25.6-37.1) H 01/11/17 08:00 - Constitutional Appears: Older Than Stated Age, Chronically Ill - Head Exam Head Exam: NORMOCEPHALIC - Eye Exam Eye Exam: Periorbital swelling, Scleral icterus Pupil Exam: NORMAL ACCOMODATION Additional comments: periorbital hematoma, resolving - ENT Exam ENT Exam: Mucous Membranes Moist, Normal External Ear Exam - Neck Exam Neck Exam: Full ROM. absent: Meningismus - Respiratory Exam Respiratory Exam: Rales, Rhonchi - Cardiovascular Exam Cardiovascular Exam: Tachycardia, REGULAR RHYTHM, +S1, +S2 - GI/Abdominal Exam GI & Abdominal Exam: Distended, Tenderness, Normal Bowel Sounds Additional comments: massive ascites - Extremities Exam Extremities Exam: Full ROM, Normal Capillary Refill. absent: Calf Tenderness, Pedal Edema - Back Exam Back Exam: Full ROM. absent: CVA tenderness (L), CVA tenderness (R) - Neurological Exam Neurological Exam: Alert, Awake, CN II-XII Intact Additional comments: oriented to person and place moves all extremities - Psychiatric Exam Psychiatric exam: Flat Affect - Skin Skin Exam: Abrasion, Dry, Warm Additional comments: jaundiced Assessment and Plan - Assessment and Plan (Free Text) Assessment: 32 yr old male with unknown past medical history except for alcoholism was brought to ED after having been found lying on ground littered in his own feces for unknown period of time, noted to be lethargic, moaning and groaning with skin tears on back and sides of hips. Work up included CT head and spine which were neg for any acute pathology. Further work up revealed elevated ammonia level (72), and bilirubin (10), BAL<10 and CPK 1082. Patient was admitted in ICU for AMS secondary to hepatic encephalopathy , liver cirrhosis, ROHIT. At present more awake and alert but with worsening kidney function. Has memory problems. 1. AMS most likely secondary to Hepatic encephalopathy patient has all stigmata of liver cirrhosis at present more awake and alert , answering questions and following commands but has memory problems on IV Zosyn for possible SBP Cultures with no growth so far Lactulose - at least 2 BM per day CXR showed no infiltrate. CT head with no acute pathology Continue thiamine Folic acid and MVI seizure/ withdrawal precautions Ativan PRN 2. Liver cirrhosis with ascites, coagulopathy , thrombocytopenia MELD score 28 patient has high mortality rate supportive care for now s/p abdominal paracentesis with removal of 7 L of ascitic fluid but abdomen significantly distended with fast re accumulation started Propranolol 10 mg tid GI consulted Dr Pimentel. Follow up on recommendations 3. Fever prob sec to SBP afebrile > 48 hours cultures with no growth so far on IV Zosyn Paracentesis done 01/11 with 7 liters of ascitic fluid removed Albumin given prior to the procedure 4. ROHIT with metabolic acidosis most likely hepatorenal syndrome Creatinine trending up from 1.7--- 3.1 Abd Us showed chronic renal disease Nephrology consulted on Sodium Bicarb Po poor prognosis Started Albumin IV and Octretide drip 5. Coagulopathy/ thrombocytopenia/ Anemia most likely related to chronic liver disease and chronic alcoholism transfused 2 unit PRBC, platelet and FFP supportive care 6. Chronic alcoholism Withdrawal/ seizure precautions off Banana bag continue PO thiamine, Folic acid , MVI Ativan PRN 7.Rhabdomyolysis patient has signs of trauma right periorbital echymosis and bilateral hip skin abrasions CT head and spine showed no acute pathology CPK was elevated Given IVF 8. Elevated lipase most likely secondary to alcoholism tolerating PO diet supportive care 9. Electrolyte abnormalities /hypokalemia/ hypomagnesemia/ hypophosphatemia replace and monitor closely 8. Multiple skin abrasions wound nurse consult appreciated 10. Episode of Unresponsive ? related to Hepatic Encephalopathy r/o Seizure EEG showed slow cerebral pattern, no spikes CT of head : neg 11. DVT prophylaxis hold anticoagulation since patient has elevated INR and thrombocytopenia
--- NOTE | 2017-01-17 18:27 | PN ---
CRITICAL CARE PROGRESS NOTE DATE OF SERVICE: 01/17/2017 LOCATION: The patient in room #435. TIME SPENT: 35 minutes. SUBJECTIVE: The patient is seen and examined at the bedside. A 37-year-old male, admitted with altered mental status, hepatic/metabolic encephalopathy, seizure disorder, hepatorenal syndrome, anemia of chronic disease, status post transfusion of packed red blood cells and FFP, non anion gap metabolic acidosis with compromised renal function, suspected hepatorenal syndrome, status post paracentesis and drain 7 L of fluid, noted to have rapid reaccumulation, complaining of mild to moderate discomfort, diffuse, in the abdomen. No fever, chills, cough, shortness of breath on exertion, swelling of lower extremities. OBJECTIVE: VITAL SIGNS: Temperature 97.7, heart rate 69, blood pressure 120/74, respiratory rate 17, thoracoabdominal, saturation 97%, intake 1640, output 350, positive balance 1290. HEENT: Pupils are reactive. Sclerae icteric. NECK: Supple. Trachea central. CHEST: Bilateral breath sounds, diminished in intensity. HEART: Rhythm regular. S1, S2 normal. No audible murmur. ABDOMEN: Distended. Bowel sounds present. Mild tenderness x4 quadrants. No rebound tenderness. Positive fluid thrill. GENITOURINARY: Scrotal edema. SKIN: With stage I to II sacral decubitus bilaterally. Peripheral pulses are intact but reduced in intensity. NEUROLOGIC: Oriented to name, place, slow to respond. No cranial nerve deficit. No motor deficit. No sensory impairment. Plantar flexor, patellar reflex 2+. CURRENT MEDICATIONS: Albumin 12.5 g IV q. 8 hours, folic acid 1 mg daily, lactulose 20 g p.o. b.i.d., Sandostatin at 50 mcg per hour, Protonix 40 p.o. daily, Zosyn 2.25 g IV q. 6 hours, propranolol 10 mg p.o. daily, sodium bicarbonate 13 mg q. 12, vitamin B1 100 mg daily. LABORATORY DATA: WBC 11, hemoglobin 7.7, hematocrit 22.7, platelet count 128, PT 18, INR 1.7, PTT 42.5. SMA-7, sodium 140, potassium 4.2, chloride 112, BUN 46, creatinine 3.1, lactic acid pending, calcium 8, total bilirubin 8.9, AST 90, ALT 42, alkaline phosphatase 78, total protein 7.3, albumin 2.9. Ascitic fluid analysis, WBC 56, RBC 244, total cell count 100, neutrophils 38, lymphocytes 52, monocytes 11, glucose 111, albumin 0.4. Urine drug screen negative. C. diff antigen and antibody negative. Stool culture, no Salmonella, Shigella, or Campylobacter. Ova and parasite are negative. Mycobacterial culture, preliminary, negative. Ascitic fluid, no growth after 4 days. Blood culture negative. Urine culture, no growth. IMPRESSION AND PLAN: 1. NEUROLOGIC: Resolving metabolic/hepatic encephalopathy, superimposed on sepsis secondary to urinary tract infection/question spontaneous bacterial peritonitis, on lactulose, intravenous Zosyn, renal adjusted, on thiamine, folic acid, multivitamin. EEG suggested metabolic vascular slowing secondary to metabolic vascular causes. 2. GASTROINTESTINAL: Liver cirrhosis with recurrent massive ascites associated with coagulopathy, thrombocytopenia, with mild MELD score 28. Continue propranolol 10 mg 3 times daily. Appreciate gastrointestinal followup. 3. PULMONARY: Reduced lung volume secondary to reduced inspiratory effort, associated with massive ascites, possible effusion with atelectasis secondary to ascites. 4. CARDIAC: No acute arrhythmias noted. 5. RENAL: Suspected hepatorenal syndrome secondary to chronic liver disease, non anion gap metabolic acidosis, seen by Renal consult, currently on albumin, octreotide, Protonix. Continue sodium bicarbonate drip. 6. HEMATOLOGY: Coagulopathy, thrombocytopenia, anemia, related to chronic liver disease, chronic alcoholism, status post transfusion of packed red blood cells and fresh frozen plasma. Continue supportive care. 7. History of substance abuse, alcohol dependence in the past, stable. No withdrawal symptoms. No further related seizure noted. 8. FLUIDS, ELECTROLYTES AND NUTRITION: Closely monitor. 9. Gastrointestinal prophylaxis. Continue Protonix. Deep venous thrombosis, auto anticoagulated from chronic liver disease. Prognosis remains guarded. 10. To discuss with Gastroenterology for repeat paracentesis to drain fluid and/or to assess the spontaneous bacterial peritonitis. Meanwhile, continue intravenous Zosyn for both spontaneous bacterial peritonitis and for urinary tract infection. Wound Care consult for sacral breakdown. Frequent change of position, keep the head of bed 30 degrees up. Mark Bryant MD [facility] # [id number]
--- NOTE | 2017-01-17 21:00 | CP.PCM.PN ---
Subjective - Date & Time of Evaluation Date of Evaluation: 01/15/17 Time of Evaluation: 13:30 - Subjective Subjective: no overnight events Objective - Vital Signs/Intake and Output Vital Signs (last 24 hours): Temp Pulse Resp BP Pulse Ox 98.2 F 74 24 124/95 H 100 01/17/17 19:43 01/17/17 19:43 01/17/17 19:43 01/17/17 19:43 01/17/17 19:43 Intake and Output: 01/17/17 01/18/17 18:59 06:59 Intake Total 1320 100 Output Total 340 Balance 980 100 - Medications Medications: Current Medications Folic Acid (Folic Acid) 1 mg PO DAILY [facility] Last Admin: 01/17/17 08:27 Dose: 1 mg Piperacillin Sod/Tazobactam Sod (Zosyn 2.25 Gm Iv Premix) 2.25 gm in 50 mls @ 50 mls/hr IVPB Q8 MEG PRN Reason: Protocol Lactulose (Enulose) 20 gm PO BID PRN PRN Reason: Constipation Last Admin: 01/15/17 18:24 Dose: 20 gm Pantoprazole Sodium (Protonix Ec Tab) 40 mg PO DAILY [facility] Last Admin: 01/17/17 10:46 Dose: Not Given Propranolol HCl (Inderal) 10 mg PO TID [facility] Last Admin: 01/17/17 17:28 Dose: 10 mg Sodium Bicarbonate (Sodium Bicarbonate Tab) 1,300 mg PO Q12 [facility] Last Admin: 01/17/17 20:20 Dose: 1,300 mg Thiamine HCl (Vitamin B1 Tab) 100 mg PO DAILY [facility] Last Admin: 01/17/17 08:27 Dose: 100 mg - Labs Labs: 01/17/17 04:40 01/17/17 04:40 PT 18.9 Seconds (9.8-13.1) H 01/11/17 08:00 INR 1.7 (0.9-1.2) H 01/11/17 08:00 APTT 42.5 Seconds (25.6-37.1) H 01/11/17 08:00 - Cardiovascular Exam Cardiovascular Exam: REGULAR RHYTHM - GI/Abdominal Exam GI & Abdominal Exam: Distended, Soft, Normal Bowel Sounds Assessment and Plan - Assessment and Plan (Free Text) Assessment: 37 yo male with decompensated cirrhosis renal input appreciated would not consider paracentesis unless renal function normalized consider hospice evaluation
--- NOTE | 2017-01-17 21:02 | CP.PCM.PN ---
Subjective - Date & Time of Evaluation Date of Evaluation: 01/16/17 Time of Evaluation: 17:10 - Subjective Subjective: no overnight events Objective - Vital Signs/Intake and Output Vital Signs (last 24 hours): Temp Pulse Resp BP Pulse Ox 98.2 F 74 24 124/95 H 100 01/17/17 19:43 01/17/17 19:43 01/17/17 19:43 01/17/17 19:43 01/17/17 19:43 Intake and Output: 01/17/17 01/18/17 18:59 06:59 Intake Total 1320 100 Output Total 340 Balance 980 100 - Medications Medications: Current Medications Folic Acid (Folic Acid) 1 mg PO DAILY [facility] Last Admin: 01/17/17 08:27 Dose: 1 mg Piperacillin Sod/Tazobactam Sod (Zosyn 2.25 Gm Iv Premix) 2.25 gm in 50 mls @ 50 mls/hr IVPB Q8 [facility] PRN Reason: Protocol Lactulose (Enulose) 20 gm PO BID PRN PRN Reason: Constipation Last Admin: 01/15/17 18:24 Dose: 20 gm Pantoprazole Sodium (Protonix Ec Tab) 40 mg PO DAILY [facility] Last Admin: 01/17/17 10:46 Dose: Not Given Propranolol HCl (Inderal) 10 mg PO TID [facility] Last Admin: 01/17/17 17:28 Dose: 10 mg Sodium Bicarbonate (Sodium Bicarbonate Tab) 1,300 mg PO Q12 [facility] Last Admin: 01/17/17 20:20 Dose: 1,300 mg Thiamine HCl (Vitamin B1 Tab) 100 mg PO DAILY [facility] Last Admin: 01/17/17 08:27 Dose: 100 mg - Labs Labs: 01/17/17 04:40 01/17/17 04:40 PT 18.9 Seconds (9.8-13.1) H 01/11/17 08:00 INR 1.7 (0.9-1.2) H 01/11/17 08:00 APTT 42.5 Seconds (25.6-37.1) H 01/11/17 08:00 - Head Exam Head Exam: NORMAL INSPECTION - Eye Exam Eye Exam: Scleral icterus - Respiratory Exam Respiratory Exam: NORMAL BREATHING PATTERN - GI/Abdominal Exam GI & Abdominal Exam: Distended, Soft, Normal Bowel Sounds Assessment and Plan - Assessment and Plan (Free Text) Assessment: 37 yo male with decompensated cirrhosis renal input appreciated cr waxing/waning would not consider paracentesis unless renal function normalized consider hospice evaluation
--- NOTE | 2017-01-17 21:03 | CP.PCM.PN ---
Subjective - Date & Time of Evaluation Date of Evaluation: 01/17/17 Time of Evaluation: 16:35 - Subjective Subjective: doing better Objective - Vital Signs/Intake and Output Vital Signs (last 24 hours): Temp Pulse Resp BP Pulse Ox 98.2 F 74 24 124/95 H 100 01/17/17 19:43 01/17/17 19:43 01/17/17 19:43 01/17/17 19:43 01/17/17 19:43 Intake and Output: 01/17/17 01/18/17 18:59 06:59 Intake Total 1320 100 Output Total 340 Balance 980 100 - Medications Medications: Current Medications Folic Acid (Folic Acid) 1 mg PO DAILY [facility] Last Admin: 01/17/17 08:27 Dose: 1 mg Piperacillin Sod/Tazobactam Sod (Zosyn 2.25 Gm Iv Premix) 2.25 gm in 50 mls @ 50 mls/hr IVPB Q8 MEG PRN Reason: Protocol Lactulose (Enulose) 20 gm PO BID PRN PRN Reason: Constipation Last Admin: 01/15/17 18:24 Dose: 20 gm Pantoprazole Sodium (Protonix Ec Tab) 40 mg PO DAILY [facility] Last Admin: 01/17/17 10:46 Dose: Not Given Propranolol HCl (Inderal) 10 mg PO TID [facility] Last Admin: 01/17/17 17:28 Dose: 10 mg Sodium Bicarbonate (Sodium Bicarbonate Tab) 1,300 mg PO Q12 [facility] Last Admin: 01/17/17 20:20 Dose: 1,300 mg Thiamine HCl (Vitamin B1 Tab) 100 mg PO DAILY [facility] Last Admin: 01/17/17 08:27 Dose: 100 mg - Labs Labs: 01/17/17 04:40 01/17/17 04:40 PT 18.9 Seconds (9.8-13.1) H 01/11/17 08:00 INR 1.7 (0.9-1.2) H 01/11/17 08:00 APTT 42.5 Seconds (25.6-37.1) H 01/11/17 08:00 - Head Exam Head Exam: NORMAL INSPECTION - Eye Exam Eye Exam: Scleral icterus - Respiratory Exam Respiratory Exam: NORMAL BREATHING PATTERN - GI/Abdominal Exam GI & Abdominal Exam: Distended, Soft, Normal Bowel Sounds Assessment and Plan - Assessment and Plan (Free Text) Assessment: 37 yo male with decompensated cirrhosis cr waxing/waning would not consider paracentesis unless renal function normalized consider hospice evaluation
[2017-01-18] MEDS: Piperacill/Tazo 2.25gm in Dex 2.25 GM/50 ML BAG IVPB SCH ×3 (00:08→16:47)
[2017-01-18 05:40] LABS: HEMATOCRIT 26.4 % (35.0-51.0); MEAN CELL VOLUME 93.9 fl (80.0-94.0); MEAN CORPUSCULAR HEMOGLOBIN 31.6 pg (27.0-31.0); MEAN CORPUSCULAR HGB CONC 33.6 g/dL (33.0-37.0); RED CELL DISTRIBUTION WIDTH 19.5 % (11.5-14.5); WHITE BLOOD COUNT 12.8 K/uL (4.8-10.8)
[2017-01-18 05:55] LABS: CALCIUM 8.3 mg/dL (8.4-10.2); POTASSIUM 4.2 MMOL/L (3.6-5.0)
[2017-01-18] MEDS: Pantoprazole 40 mg EC Tab PO SCH (08:57)
--- NOTE | 2017-01-18 11:46 | CP.PCM.PN ---
Subjective - Date & Time of Evaluation Date of Evaluation: 01/18/17 Time of Evaluation: 11:00 - Subjective Subjective: No fever denies CP no SOB abd distention, uncomfortable but no severe pain walked with physical therapy Crea remains stable Objective - Vital Signs/Intake and Output Vital Signs (last 24 hours): Temp Pulse Resp BP Pulse Ox 99.1 F 68 26 H 116/73 100 01/18/17 04:00 01/18/17 10:00 01/18/17 10:00 01/18/17 10:00 01/18/17 10:00 Intake and Output: 01/18/17 01/18/17 06:59 18:59 Intake Total 450 390 Output Total 250 120 Balance 200 270 - Medications Medications: Current Medications Folic Acid (Folic Acid) 1 mg PO DAILY [facility] Last Admin: 01/18/17 08:57 Dose: 1 mg Piperacillin Sod/Tazobactam Sod (Zosyn 2.25 Gm Iv Premix) 2.25 gm in 50 mls @ 50 mls/hr IVPB Q8 [facility] PRN Reason: Protocol Last Admin: 01/18/17 08:58 Dose: 50 mls/hr Lactulose (Enulose) 20 gm PO BID PRN PRN Reason: Constipation Last Admin: 01/15/17 18:24 Dose: 20 gm Pantoprazole Sodium (Protonix Ec Tab) 40 mg PO DAILY [facility] Last Admin: 01/18/17 08:57 Dose: 40 mg Propranolol HCl (Inderal) 10 mg PO TID [facility] Last Admin: 01/18/17 08:57 Dose: 10 mg Sodium Bicarbonate (Sodium Bicarbonate Tab) 1,300 mg PO Q12 [facility] Last Admin: 01/18/17 08:57 Dose: 1,300 mg Thiamine HCl (Vitamin B1 Tab) 100 mg PO DAILY [facility] Last Admin: 01/18/17 08:57 Dose: 100 mg - Labs Labs: 01/18/17 04:20 01/18/17 04:20 PT 18.9 Seconds (9.8-13.1) H 01/11/17 08:00 INR 1.7 (0.9-1.2) H 01/11/17 08:00 APTT 42.5 Seconds (25.6-37.1) H 01/11/17 08:00 - Constitutional Appears: Older Than Stated Age, Chronically Ill - Head Exam Head Exam: NORMOCEPHALIC - Eye Exam Eye Exam: Periorbital swelling, Scleral icterus Pupil Exam: NORMAL ACCOMODATION - ENT Exam ENT Exam: Mucous Membranes Moist, Normal External Ear Exam - Neck Exam Neck Exam: Full ROM. absent: Meningismus - Respiratory Exam Respiratory Exam: Rales, Rhonchi - Cardiovascular Exam Cardiovascular Exam: Tachycardia, REGULAR RHYTHM, +S1, +S2 - GI/Abdominal Exam GI & Abdominal Exam: Distended, mild Tenderness, Normal Bowel Sounds Additional comments: massive ascites - Extremities Exam Extremities Exam: Full ROM, Normal Capillary Refill. absent: Calf Tenderness, Pedal Edema - Back Exam Back Exam: Full ROM. absent: CVA tenderness (L), CVA tenderness (R) - Neurological Exam Neurological Exam: Alert, Awake, CN II-XII Intact Additional comments: oriented to person and place moves all extremities - Psychiatric Exam Psychiatric exam: Flat Affect - Skin Skin Exam: Abrasion, Dry, Warm Additional comments: jaundiced Assessment and Plan - Assessment and Plan (Free Text) Assessment: 32 yr old male with unknown past medical history except for alcoholism was brought to ED after having been found lying on ground littered in his own feces for unknown period of time, noted to be lethargic, moaning and groaning with skin tears on back and sides of hips. Work up included CT head and spine which were neg for any acute pathology. Further work up revealed elevated ammonia level (72), and bilirubin (10), BAL<10 and CPK 1082. Patient was admitted in ICU for AMS secondary to hepatic encephalopathy , liver cirrhosis, ROHIT. At present more awake and alert, kidney function stable at 3.1. Has memory problems. 1. AMS most likely secondary to Hepatic encephalopathy patient has all stigmata of liver cirrhosis at present more awake and alert , answering questions and following commands but has memory problems on IV Zosyn for possible SBP Cultures with no growth so far Lactulose - at least 2 BM per day CXR showed no infiltrate. CT head with no acute pathology Continue thiamine Folic acid and MVI seizure/ withdrawal precautions Ativan PRN 2. Liver cirrhosis with ascites, coagulopathy , thrombocytopenia MELD score 28 patient has high mortality rate supportive care for now s/p abdominal paracentesis with removal of 7 L of ascitic fluid but abdomen significantly distended with fast re accumulation started Propranolol 10 mg tid GI consulted Dr Pimentel - rec not to do Paracentesis for now 3. Fever prob sec to SBP, resolved afebrile cultures with no growth so far on IV Zosyn Day 10 will d/c after today's dose and just give SBP proph Paracentesis done 01/11 with 7 liters of ascitic fluid removed Albumin given 4. ROHIT with metabolic acidosis most likely hepatorenal syndrome Creatinine trended up from 1.7--- 3.1 Sonogram showed chronic renal disease Nephrology consulted on Sodium Bicarb Po poor prognosis Started Albumin IV and Octretide drip- now d/c by GI 5. Coagulopathy/ thrombocytopenia/ Anemia most likely related to chronic liver disease and chronic alcoholism transfused 2 unit PRBC, platelet and FFP supportive care 6. Chronic alcoholism Withdrawal/ seizure precautions off Banana bag continue PO thiamine, Folic acid , MVI Ativan PRN 7.Rhabdomyolysis patient has signs of trauma right periorbital echymosis and bilateral hip skin abrasions CT head and spine showed no acute pathology CPK was elevated Given IVF 8. Elevated lipase most likely secondary to alcoholism tolerating PO diet supportive care 9. Electrolyte abnormalities /hypokalemia/ hypomagnesemia/ hypophosphatemia replace and monitor closely 8. Multiple skin abrasions wound nurse consult appreciated 10. Episode of Unresponsive ? related to Hepatic Encephalopathy r/o Seizure EEG showed slow cerebral pattern, no spikes CT of head : neg 11. DVT prophylaxis hold anticoagulation since patient has elevated INR
[2017-01-19] MEDS: Piperacill/Tazo 2.25gm in Dex 2.25 GM/50 ML BAG IVPB SCH ×3 (00:22→16:36)
[2017-01-19 06:43] LABS: HEMATOCRIT 26.2 % (35.0-51.0); MEAN CELL VOLUME 93.4 fl (80.0-94.0); MEAN CORPUSCULAR HEMOGLOBIN 31.7 pg (27.0-31.0); MEAN CORPUSCULAR HGB CONC 33.9 g/dL (33.0-37.0); RED CELL DISTRIBUTION WIDTH 19.6 % (11.5-14.5); WHITE BLOOD COUNT 13.1 K/uL (4.8-10.8)
[2017-01-19 06:56] LABS: CALCIUM 8.4 mg/dL (8.4-10.2); POTASSIUM 4.2 MMOL/L (3.6-5.0)
[2017-01-19] MEDS: Pantoprazole 40 mg EC Tab PO SCH (09:04)
--- NOTE | 2017-01-19 14:12 | CP.PCM.PN ---
Subjective - Date & Time of Evaluation Date of Evaluation: 01/19/17 Time of Evaluation: 11:30 - Subjective Subjective: Patient seen and examined bedside. chronically illl male with abdominal ascites and jaundice lying in bed in NAD. Complains of abdominal distention and discomfort lower abdomen. Alert awake oriented x 3 hemodynamically stable, afebrile No acute issues overnight Participating with PT Objective - Vital Signs/Intake and Output Vital Signs (last 24 hours): Temp Pulse Resp BP Pulse Ox 98.0 F 80 20 119/72 98 01/19/17 07:32 01/19/17 12:35 01/19/17 07:32 01/19/17 12:35 01/19/17 07:32 Intake and Output: 01/19/17 01/19/17 06:59 18:59 Intake Total 20 Output Total 200 Balance -180 - Medications Medications: Current Medications Folic Acid (Folic Acid) 1 mg PO DAILY [facility] Last Admin: 01/19/17 09:05 Dose: 1 mg Piperacillin Sod/Tazobactam Sod (Zosyn 2.25 Gm Iv Premix) 2.25 gm in 50 mls @ 50 mls/hr IVPB Q8 MEG PRN Reason: Protocol Lactulose (Enulose) 20 gm PO BID PRN PRN Reason: Constipation Last Admin: 01/19/17 09:04 Dose: 20 gm Pantoprazole Sodium (Protonix Ec Tab) 40 mg PO DAILY [facility] Last Admin: 01/19/17 09:04 Dose: 40 mg Propranolol HCl (Inderal) 10 mg PO TID [facility] Last Admin: 01/19/17 12:35 Dose: 10 mg Sodium Bicarbonate (Sodium Bicarbonate Tab) 1,300 mg PO Q12 [facility] Last Admin: 01/19/17 09:04 Dose: 1,300 mg Thiamine HCl (Vitamin B1 Tab) 100 mg PO DAILY [facility] Last Admin: 01/19/17 09:04 Dose: 100 mg - Labs Labs: 01/19/17 05:20 01/19/17 05:20 PT 18.9 Seconds (9.8-13.1) H 01/11/17 08:00 INR 1.7 (0.9-1.2) H 01/11/17 08:00 APTT 42.5 Seconds (25.6-37.1) H 01/11/17 08:00 - Constitutional Appears: Non-toxic, Older Than Stated Age, Chronically Ill, Other (with abdominal ascites) - Head Exam Head Exam: ATRAUMATIC, NORMAL INSPECTION, NORMOCEPHALIC - Eye Exam Eye Exam: Normal appearance, PERRL Pupil Exam: NORMAL ACCOMODATION - Neck Exam Neck Exam: Normal Inspection - Respiratory Exam Respiratory Exam: Clear to Ausculation Bilateral, NORMAL BREATHING PATTERN. absent: Rhonchi, Wheezes, Respiratory Distress - Cardiovascular Exam Cardiovascular Exam: REGULAR RHYTHM, RRR, +S1, +S2. absent: JVD - GI/Abdominal Exam GI & Abdominal Exam: Distended, Firm. absent: Guarding, Tenderness, Rebound - Rectal Exam Rectal Exam: Deferred - Extremities Exam Extremities Exam: Full ROM, Pedal Edema (2 +). absent: Calf Tenderness - Back Exam Back Exam: NORMAL INSPECTION - Neurological Exam Neurological Exam: Alert, Awake, CN II-XII Intact, Oriented x3 - Psychiatric Exam Psychiatric exam: Normal Affect - Skin Skin Exam: Dry, Warm Additional comments: jaundiced Assessment and Plan - Assessment and Plan (Free Text) Assessment: 32 yr old male with unknown past medical history except for alcoholism was brought to ED after having been found lying on ground littered in his own feces for unknown period of time, noted to be lethargic, moaning and groaning with skin tears on back and sides of hips. Work up included CT head and spine which were neg for any acute pathology. Further work up revealed elevated ammonia level (72), and bilirubin (10), BAL<10 and CPK 1082. Patient was admitted in ICU for AMS secondary to hepatic encephalopathy , liver cirrhosis, ROHIT. At present AAOx3 , kidney function stable at 3. 1. AMS most likely secondary to Hepatic encephalopathy-improved patient has all stigmata of liver cirrhosis at present more awake and alert , answering questions and following commands , AAOx3 on IV Zosyn for possible SBP Cultures with no growth so far Lactulose - at least 2 BM per day CXR showed no infiltrate. CT head with no acute pathology Continue thiamine Folic acid and MVI seizure/ withdrawal precautions Ativan PRN started PT for gait plan for d/c once cleared by PT 2. Liver cirrhosis with ascites, coagulopathy , thrombocytopenia MELD score 28 patient has high mortality rate supportive care for now s/p abdominal paracentesis with removal of 7 L of ascitic fluid but abdomen significantly distended with fast re accumulation started Propranolol 10 mg tid GI consulted Dr Pimentel - rec not to do Paracentesis for now due to worsening renal function 3. Fever prob sec to SBP, resolved afebrile cultures with no growth so far on IV Zosyn Day 10 will d/c after today's dose and just give SBP proph Paracentesis done 01/11 with 7 liters of ascitic fluid removed Albumin given 4. ROHIT with metabolic acidosis most likely hepatorenal syndrome Creatinine trended up from 1.7--- 3.1 and now stable at 3 for the last 5 days Sonogram showed chronic renal disease Nephrology consulted on Sodium Bicarb Po poor prognosis received Albumin IV and Octretide drip- now d/c by GI 5. Coagulopathy/ thrombocytopenia/ Anemia most likely related to chronic liver disease and chronic alcoholism transfused 2 unit PRBC, platelet and FFP supportive care 6. Chronic alcoholism Withdrawal/ seizure precautions off Banana bag continue PO thiamine, Folic acid , MVI Ativan PRN 7.Rhabdomyolysis patient had signs of trauma right periorbital echymosis and bilateral hip skin abrasions CT head and spine showed no acute pathology CPK was elevated Given IVF Started PT 8. Elevated lipase most likely secondary to alcoholism tolerating PO diet supportive care 9. Electrolyte abnormalities /hypokalemia/ hypomagnesemia/ hypophosphatemia replace and monitor closely 8. Multiple skin abrasions wound nurse consult appreciated 10. Episode of Unresponsive ? related to Hepatic Encephalopathy r/o Seizure EEG showed slow cerebral pattern, no spikes CT of head : neg 11. DVT prophylaxis hold anticoagulation since patient has elevated INR
[2017-01-19] MEDS ORDERED: Piperacillin/Tazobact 2.25 GM in Sodium Chloride 0.9% 50 ML IV SCH (17:00)
[2017-01-20] MEDS: Piperacill/Tazo 2.25gm in Dex 2.25 GM/50 ML BAG IVPB SCH ×2 (00:33→08:28)
[2017-01-20 00:44] VITALS: RESP 18
[2017-01-20 07:55] VITALS: TEMP 98.9; O2SAT 96
[2017-01-20] MEDS: Pantoprazole 40 mg EC Tab PO SCH (08:28)
--- NOTE | 2017-01-20 10:24 | CP.PCM.PN ---
Subjective - Date & Time of Evaluation Date of Evaluation: 01/20/17 Time of Evaluation: 10:23 - Subjective Subjective: Patient is up and around No chest pain or shortness of breath resting Appetite is poor No vomiting or nausea Objective - Vital Signs/Intake and Output Vital Signs (last 24 hours): Temp Pulse Resp BP Pulse Ox 98.9 F 75 18 116/75 96 01/20/17 07:54 01/20/17 08:27 01/20/17 07:54 01/20/17 08:27 01/20/17 07:54 - Medications Medications: Current Medications Folic Acid (Folic Acid) 1 mg PO DAILY [facility] Last Admin: 01/20/17 08:28 Dose: 1 mg Piperacillin Sod/Tazobactam Sod (Zosyn 2.25 Gm Iv Premix) 2.25 gm in 50 mls @ 50 mls/hr IVPB Q8 [facility] PRN Reason: Protocol Last Admin: 01/20/17 08:28 Dose: 50 mls/hr Lactulose (Enulose) 20 gm PO BID PRN PRN Reason: Constipation Last Admin: 01/19/17 09:04 Dose: 20 gm Pantoprazole Sodium (Protonix Ec Tab) 40 mg PO DAILY [facility] Last Admin: 01/20/17 08:28 Dose: 40 mg Propranolol HCl (Inderal) 10 mg PO TID [facility] Last Admin: 01/20/17 08:27 Dose: 10 mg Sodium Bicarbonate (Sodium Bicarbonate Tab) 1,300 mg PO Q12 [facility] Last Admin: 01/20/17 08:27 Dose: 1,300 mg Thiamine HCl (Vitamin B1 Tab) 100 mg PO DAILY [facility] Last Admin: 01/20/17 08:28 Dose: 100 mg - Labs Labs: 01/19/17 05:20 01/19/17 05:20 PT 18.9 Seconds (9.8-13.1) H 01/11/17 08:00 INR 1.7 (0.9-1.2) H 01/11/17 08:00 APTT 42.5 Seconds (25.6-37.1) H 01/11/17 08:00 - Constitutional Appears: No Acute Distress - ENT Exam ENT Exam: Mucous Membranes Moist - Respiratory Exam Respiratory Exam: absent: Chest Wall Tenderness - Cardiovascular Exam Cardiovascular Exam: absent: JVD, Rubs - GI/Abdominal Exam GI & Abdominal Exam: Distended, Firm, Normal Bowel Sounds Additional comments: massive ascites - Extremities Exam Extremities Exam: absent: Calf Tenderness - Back Exam Back Exam: absent: CVA tenderness (L), CVA tenderness (R) - Neurological Exam Neurological Exam: Alert, Awake - Psychiatric Exam Psychiatric exam: Normal Mood Assessment and Plan (1) Hepatorenal syndrome Assessment & Plan: Patient admitted with massive ascites with high bilirubin and liver cirrhosis alcoholic related. Admitted with hepatorenal syndrome and acute kidney injury superimposed. His serum creatinine has been stable around 3.0 And what appeared to be stable kidney function Patient receiving physiotherapy for ambulation Patient remains jaundice Massive ascites Overall patient has shown significant improvement since he was admitted to intensive care unit. Continue monitoring Continue sodium bicarbonate by mouth Status: Acute (2) ROHIT (acute kidney injury) Status: Acute
[2017-01-20 13:18] VITALS: PULSE 68
--- NOTE | 2017-01-20 13:50 | CP.PCM.DIS ---
Provider - Provider Date of Admission: 01/08/17 19:15 Attending physician: Jeannette Dillard MD Primary care physician: None Consults: Nephrology consult Gastroenterology consult Time Spent in preparation of Discharge (in minutes): 15 Hospital Course - Lab Results Lab Results: Micro Results 01/18/17 08:00 Naris MRSA Culture (Admit) - Final MRSA NOT DETECTED 01/11/17 13:30 Other: Please Indicate Mycobacterial Culture - Preliminary 01/13/17 19:55 Stool Stool Culture - Final NO SALMONELLA, SHIGELLA OR CAMPYLOBACTER ISOLATED. 01/13/17 08:00 Stool Ova and Parasite Concentrate Exam - Final 01/10/17 21:30 Blood Blood Culture - Final NO GROWTH AFTER 5 DAYS 01/10/17 21:30 Blood Gram Stain - Final TEST NOT PERFORMED 01/10/17 21:00 Blood Blood Culture - Final NO GROWTH AFTER 5 DAYS 01/10/17 21:00 Blood Gram Stain - Final TEST NOT PERFORMED 01/11/17 13:30 Ascitic Fluid Gram Stain - Final 01/11/17 13:30 Ascitic Fluid Body Fluid Culture - Final NO GROWTH AFTER 4 DAYS 01/08/17 08:15 Blood Blood Culture - Final NO GROWTH AFTER 5 DAYS 01/08/17 08:15 Blood Gram Stain - Final TEST NOT PERFORMED 01/08/17 07:35 Blood Blood Culture - Final NO GROWTH AFTER 5 DAYS 01/08/17 07:35 Blood Gram Stain - Final TEST NOT PERFORMED 01/10/17 23:00 Urine,Catheterized Urine Culture - Final No Growth (<1,000 CFU/ML) 01/08/17 09:50 Naris MRSA Culture (Admit) - Final MRSA NOT DETECTED 01/08/17 21:40 Urine,Hernandez Urine Culture - Final No Growth (<1,000 CFU/ML) Most Recent Lab Values WBC 13.1 K/uL (4.8-10.8) H 01/19/17 05:20 RBC 2.80 Mil/uL (4.40-5.90) L 01/19/17 05:20 Hgb 8.9 g/dL (12.0-18.0) L 01/19/17 05:20 Hct 26.2 % (35.0-51.0) L 01/19/17 05:20 MCV 93.4 fl (80.0-94.0) 01/19/17 05:20 MCH 31.7 pg (27.0-31.0) H 01/19/17 05:20 MCHC 33.9 g/dL (33.0-37.0) 01/19/17 05:20 RDW 19.6 % (11.5-14.5) H 01/19/17 05:20 Plt Count 164 K/uL (130-400) 01/19/17 05:20 MPV 8.4 fl (7.2-11.7) 01/16/17 05:30 Neut % (Auto) 59.2 % (50.0-75.0) 01/16/17 05:30 Lymph % (Auto) 20.5 % (20.0-40.0) 01/16/17 05:30 Kings % (Auto) 15.5 % (0.0-10.0) H 01/16/17 05:30 Eos % (Auto) 1.9 % (0.0-4.0) 01/16/17 05:30 Baso % (Auto) 2.9 % (0.0-2.0) H 01/16/17 05:30 Neut # 5.9 K/uL (1.8-7.0) 01/16/17 05:30 Lymph # 2.1 K/uL (1.0-4.3) 01/16/17 05:30 Kings # 1.6 K/uL (0.0-0.8) H 01/16/17 05:30 Eos # 0.2 K/uL (0.0-0.7) 01/16/17 05:30 Baso # 0.3 K/uL (0.0-0.2) H 01/16/17 05:30 PT 18.9 Seconds (9.8-13.1) H 01/11/17 08:00 INR 1.7 (0.9-1.2) H 01/11/17 08:00 APTT 42.5 Seconds (25.6-37.1) H 01/11/17 08:00 pO2 30 mm/Hg (30-55) 01/08/17 19:27 VBG pH 7.44 (7.32-7.43) H 01/08/17 19:27 VBG pCO2 34 mmHg (40-60) L 01/08/17 19:27 VBG HCO3 23.6 mmol/L 01/08/17 19:27 VBG Total CO2 24.1 mmol/L (22-28) 01/08/17 19:27 VBG O2 Sat (Calc) 62.6 % (40-65) 01/08/17 19:27 VBG Base Excess -0.8 mmol/L (0.0-2.0) L 01/08/17 19:27 VBG Potassium 3.7 mmol/L (3.6-5.2) 01/08/17 19: Sodium 142.0 mmol/L (132-148) 01/08/17 19: Chloride 107.0 mmol/L (98-107) 01/08/17 19: Glucose 133 mg/dL (75-110) H 01/08/17 19:27 Lactate 2.1 mmol/L (0.7-2.1) 01/08/17 19: FiO2 21.0 % 01/08/17 19: Sodium 141 mmol/l (132-148) 01/19/17 05:20 Potassium 4.2 MMOL/L (3.6-5.0) 01/19/17 05:20 Chloride 112 mmol/L (98-107) H 01/19/17 05:20 Carbon Dioxide 17 mmol/L (22-30) L 01/19/17 05:20 Anion Gap 16 (10-20) 01/19/17 05:20 BUN 57 mg/dl (9-20) H 01/19/17 05:20 Creatinine 3.0 mg/dL (0.8-1.5) H 01/19/17 05:20 Est GFR ( Amer) 28 01/19/17 05:20 Est GFR (Non-Af Amer) 23 01/19/17 05:20 POC Glucose (mg/dL) 140 mg/dL (65-110) H 01/20/17 10:56 Random Glucose 102 mg/dL (75-110) 01/19/17 05:20 Lactic Acid 1.0 MMOL/L (0.7-2.1) 01/09/17 05:30 Calcium 8.4 mg/dL (8.4-10.2) 01/19/17 05:20 Phosphorus 4.2 mg/dl (2.5-4.5) 01/16/17 05:30 Magnesium 2.0 MG/DL (1.6-2.3) 01/15/17 05:30 Total Bilirubin 8.9 mg/dl (0.2-1.3) H 01/17/17 04:40 Direct Bilirubin 7.5 mg/ml (0.0-0.4) H 01/08/17 19:35 AST 90 U/L (17-59) H 01/17/17 04:40 ALT 42 U/L (21-72) 01/17/17 04:40 Alkaline Phosphatase 78 U/L (38-126) 01/17/17 04:40 Ammonia 54 umo/L (16-60) 01/16/17 08:20 Total Creatine Kinase 326 U/L (55-170) H 01/10/17 04:20 Troponin I < 0.0120 ng/mL (0.00-0.120) 01/10/17 21:30 Total Protein 7.3 G/DL (6.3-8.2) 01/17/17 04:40 Albumin 2.9 g/dL (3.5-5.0) L 01/17/17 04:40 Globulin 4.4 gm/dL (2.2-3.9) H 01/17/17 04:40 Albumin/Globulin Ratio 0.7 (1.0-2.1) L 01/17/17 04:40 Lipase 2877 U/L (23-300) H 01/12/17 08:34 Venous Blood Potassium 3.7 mmol/L (3.6-5.2) 01/08/17 19:27 Urine Color Red (YELLOW) 01/08/17 20:45 Urine Clarity Turbid (Clear) 01/08/17 20:45 Urine pH 6.5 (5.0-8.0) 01/08/17 20:45 Ur Specific [place] 1.025 (1.003-1.030) 01/08/17 20:45 Urine Protein >=300 mg/dL (NEGATIVE) 01/08/17 20:45 Urine Glucose (UA) 100 mg/dL (Normal) 01/08/17 20:45 Urine Ketones 15 mg/dL (NEGATIVE) 01/08/17 20:45 Urine Blood Large (NEGATIVE) 01/08/17 20:45 Urine Nitrate Positive (NEGATIVE) H 01/08/17 20:45 Urine Bilirubin Large (NEGATIVE) 01/08/17 20:45 Urine Urobilinogen 4.0 mg/dL (0.2-1.0) 01/08/17 20:45 Ur Leukocyte Esterase Trace Alex/uL (Negative) H 01/08/17 20:45 Urine RBC (Auto) 877 /hpf (0-3) H 01/08/17 20:45 Urine Microscopic WBC 89 /hpf (0-5) H 01/08/17 20:45 Ur Squamous Epith Cells 5 /hpf (0-5) 01/08/17 20:45 Amorphous Sediment Moderate /ul (<OCC) H 01/08/17 20:45 Urine Bacteria Mod (<OCC) H 01/08/17 20:45 Urine Yeast (Budding) Many /hpf (NEGATIVE) H 01/08/17 20:45 Ur Random Sodium < 5 meq/L 01/12/17 16:50 Ur Random Potassium 35.5 mmol/L 01/12/17 16:50 Urine Chloride 20 mmol/L (32-290) L 01/12/17 16:50 Fluid Source Peritoneal/ascites 01/11/17 13:30 Fluid Appearance Clear (CLEAR) 01/11/17 13:30 Fluid WBC 56.0 /mm3 (0.0-300.0) 01/11/17 13:30 Fluid RBC 244.0 /mm3 (0.0-0.0) H 01/11/17 13:30 Fluid Tot Cell Count 100 (0-0) H 01/11/17 13:30 Fluid Neutrophils 38.0 % (0-0) H 01/11/17 13:30 Fluid Lymphocytes 52.0 % (0-0) H 01/11/17 13:30 Fld Monocyte/Macrophag 11 % (0-0) H 01/11/17 13:30 Fluid Glucose 114 mg/dL (NONE ESTABLISHED) 01/11/17 13:30 Fluid Albumin 0.4 g/dL 01/11/17 13:30 Fluid Comment Yellow 01/11/17 13:30 Urine Opiates Screen Negative (NEGATIVE) 01/08/17 20:58 Urine Methadone Screen Negative (NEGATIVE) 01/08/17 20:58 Ur Barbiturates Screen Negative (NEGATIVE) 01/08/17 20:58 Ur Phencyclidine Scrn Negative (NEGATIVE) 01/08/17 20:58 Ur Amphetamines Screen Negative (NEGATIVE) 01/08/17 20:58 U Benzodiazepines Scrn Negative (NEGATIVE) 01/08/17 20:58 U Oth Cocaine Metabols Negative (NEGATIVE) 01/08/17 20:58 U Cannabinoids Screen Negative (NEGATIVE) 01/08/17 20:58 Alcohol, Quantitative < 10 mg/dl (0-10) 01/08/17 19:43 C. difficile Ag & Toxin Negative (NEGATIVE) 01/11/17 14:00 Blood Type O POSITIVE 01/17/17 07:51 Blood Type Confirm O POSITIVE 01/09/17 05:30 Antibody Screen Negative 01/17/17 07:51 Crossmatch See Detail 01/17/17 07:51 BBK History Checked Patient has bt 01/17/17 07:51 - Hospital Course Hospital Course: 32 yr old male with unknown past medical history except for alcoholism was brought to ED after having been found lying on ground littered in his own feces for unknown period of time, noted to be lethargic, moaning and groaning with skin tears on back and sides of hips. Work up included CT head and spine which were neg for any acute pathology. Further work up revealed elevated ammonia level (72), and bilirubin (10), BAL<10 and CPK 1082. Patient was admitted in ICU for AMS secondary to hepatic encephalopathy , liver cirrhosis, ROHIT. He was treated with Zosyn IV empirically for possible SBP, lactulose for elevated ammonia levels , abdominal parasenthesis with removal of 7 l ascitic fluid. GI , ocean biologist and nephrology were consulted Patient developed worsening renal function after abdominal parasenthesis with creatinine as high as 3.1 , most likely secondary to hepatorsenal syndrome. He was started on octreotide drip and albumine IV as per nephro and at present renal function has been stable for almost 6 days at 3.His abdominal distention is still significant due to fast ascitic fluid re accumulation. Discussed withg GI and recommended no other parasenthesis at present to prevent worsening renal function Patient's mental condition improved and at present AAOx3. He is hemodynamically stable ands afebrile but due to his liver cirrhosis he is very poor prognosis ( MELD score 28 ) physical therapy consulted and cleared patient for discharge Will discharge patient today. States that he stays with a friend. Provided prescriptions for Propranolol ansd Sodium bicarb PO 1. AMS most likely secondary to Hepatic encephalopathy-improved patient has all stigmata of liver cirrhosis at awake and alert , answering questions and following commands , AAOx3 received IV Zosyn for possible SBP Cultures with no growth so far Given Lactulose for elevated ammonia CXR showed no infiltrate. CT head with no acute pathology Given thiamine Folic acid and MVI PT consulted and cleared for discharge 2. Liver cirrhosis with ascites, coagulopathy , thrombocytopenia MELD score 28 patient has high mortality rate supportive care for now s/p abdominal paracentesis with removal of 7 L of ascitic fluid but abdomen significantly distended with fast re accumulation started Propranolol 10 mg tid GI consulted Dr Pimentel - rec not to do Paracentesis for now due to worsening renal function 3. Fever prob sec to SBP, resolved afebrile cultures with no growth so far received IV Zosyn for 12 Paracentesis done 01/11 with 7 liters of ascitic fluid removed Albumin given 4. ROHIT with metabolic acidosis most likely hepatorenal syndrome Creatinine trended up from 1.7--- 3.1 and now stable at 3 for the last 6 days Sonogram showed chronic renal disease Nephrology consulted on Sodium Bicarb Po poor prognosis received Albumin IV and Octretide drip- now d/c by GI 5. Coagulopathy/ thrombocytopenia/ Anemia most likely related to chronic liver disease and chronic alcoholism transfused 2 unit PRBC, platelet and FFP supportive care 6. Chronic alcoholism Withdrawal/ seizure precautions off Banana bag continue PO thiamine, Folic acid , MVI Ativan PRN 7.Rhabdomyolysis patient had signs of trauma right periorbital echymosis and bilateral hip skin abrasions CT head and spine showed no acute pathology CPK was elevated Given IVF Started PT 8. Elevated lipase most likely secondary to alcoholism tolerating PO diet supportive care 9. Electrolyte abnormalities /hypokalemia/ hypomagnesemia/ hypophosphatemia replace and monitor closely 8. Multiple skin abrasions wound nurse consult appreciated 10. Episode of Unresponsive ? related to Hepatic Encephalopathy r/o Seizure EEG showed slow cerebral pattern, no spikes CT of head : neg 11. DVT prophylaxis hold anticoagulation since patient has elevated INR Discharge Exam - Head Exam Head Exam: ATRAUMATIC, NORMAL INSPECTION, NORMOCEPHALIC Additional comments: jaundiced chronically ill - Eye Exam Eye Exam: PERRL - ENT Exam ENT Exam: Mucous Membranes Moist, Normal Exam - Neck Exam Neck exam: Full Rom, Normal Inspection - Respiratory Exam Respiratory Exam: Clear to PA & Lateral, NORMAL BREATHING PATTERN. absent: Rhonchi, Wheezes, Respiratory Distress - Cardiovascular Exam Cardiovascular Exam: REGULAR RHYTHM, +S1, +S2. absent: JVD - GI/Abdominal Exam GI & Abdominal Exam: Distended (ascites ), Normal Bowel Sounds. absent: Guarding, Rebound, Tenderness - Rectal Exam Rectal Exam: Deferred - Extremities Exam Extremities exam: normal capillary refill, pedal edema (2 +), pedal pulses present - Back Exam Back exam: NORMAL INSPECTION - Neurological Exam Neurological exam: Alert, CN II-XII Intact, Oriented x3 - Psychiatric Exam Psychiatric exam: Normal Affect - Skin Skin Exam: Dry, Warm Additional comments: jaundiced Discharge Plan - Discharge Medications Prescriptions: Propranolol [Inderal] 10 mg PO TID #90 tab Sodium Bicarbonate Tab 1,300 mg PO Q12 #60 tab - Follow Up Plan Condition: CRITICAL Disposition: TRANSF TO SNF Instructions: Cirrhosis (DC), Ascites (DC) Referrals: [facility] [Outside]
[2017-01-20 16:46] VITALS: BP 120/78
== END 2017-01-20 14:55 | disposition home or self-care (01) | DRG 557 ==
LOC: H.ER 18:39 → EDBD 19:15 → H.ERHOLD 19:15 → H.ICU/CCU 23:28 → H.MEDSURG1 01-18 22:12
PROVIDERS: ADMIT Internal Medicine; ATTEND Internal Medicine
PROC: 3E0234Z Introduction of Serum, Toxoid and Vaccine into Muscle, Percutaneous Approach (ICD-10-PCS; 2017-01-09)
PROC: 30233N1 Transfusion of Nonautologous Red Blood Cells into Peripheral Vein, Percutaneous Approach (ICD-10-PCS; 2017-01-10)
PROC: 0W9G3ZZ Drainage of Peritoneal Cavity, Percutaneous Approach (ICD-10-PCS; principal; 2017-01-11)
PROC: 30233K1 Transfusion of Nonautologous Frozen Plasma into Peripheral Vein, Percutaneous Approach (ICD-10-PCS; 2017-01-11)
DX: K70.11 Alcoholic hepatitis with ascites (principal); K65.2 Spontaneous bacterial peritonitis; K70.31 Alcoholic cirrhosis of liver with ascites; K76.7 Hepatorenal syndrome; G93.41 Metabolic encephalopathy; N17.9 Acute kidney failure, unspecified; D68.9 Coagulation defect, unspecified; M62.82 Rhabdomyolysis; E87.2 Acidosis; N39.0 Urinary tract infection, site not specified; R64 Cachexia; D69.59 Other secondary thrombocytopenia; E87.6 Hypokalemia; R32 Unspecified urinary incontinence; L03.317 Cellulitis of buttock; L03.116 Cellulitis of left lower limb; L03.115 Cellulitis of right lower limb; F10.20 Alcohol dependence, uncomplicated; K70.40 Alcoholic hepatic failure without coma; D63.8 Anemia in other chronic diseases classified elsewhere; E83.42 Hypomagnesemia; E83.39 Other disorders of phosphorus metabolism; G40.909 Epilepsy, unspecified, not intractable, without status epilepticus; K44.9 Diaphragmatic hernia without obstruction or gangrene; Z23 Encounter for immunization; Z59.0 Homelessness